=== PATIENT | female | born 1955 | race Caucasian/White ===

== ENCOUNTER 2019-11-06 12:17 | Outpatient (CLI) | payer OTHER, SELFPAY ==
[2019-11-06 12:28] LABS: Basophils Absolute Auto 0.05 K/mm3 (0.00-0.10); Basophils Percent Auto 0.5 % (0.0-1.0); Eosinophils Absolute Auto 0.21 K/mm3 (0.02-0.50); Eosinophils Percent Auto 2.3 % (1.0-6.0); Hemoglobin 13.4 g/dL (12.0-15.0); Immature Granulocyte Absolute 0.04 K/mm3 (0.00-0.00); Immature Granulocyte Percent A 0.4 % (0.0-0.0); Lymphocytes Absolute Auto 2.48 K/mm3 (1.10-4.50); Lymphocytes Percent Auto 27.2 % (18.0-42.0); Mean Corpuscular HGB Conc 33.5 g/dL (32.0-36.0); Mean Corpuscular Hemoglobin 27.7 pg (27.0-31.0); Mean Corpuscular Volume 82.8 fL (78.0-102.0); Mean Platelet Volume 10.4 fl (9.2-11.8); Monocytes Absolute Auto 0.77 K/mm3 (0.10-0.90); Monocytes Percent Auto 8.4 % (2.0-11.0); Neutrophils Absolute Auto 5.6 K/mm3 (1.7-7.2); Neutrophils Percent Auto 61.2 % (50.0-70.0); Platelet Count Result 302 K/mm3 (150-420); Red Blood Count 4.83 M/mm3 (4.20-5.40); Red Cell Distribution Width 13.7 % (11.6-14.4); White Blood Count 9.1 K/mm3 (4.8-10.8)
[2019-11-06 12:48] LABS: Hemoglobin A1C 6.3 % (<5.7)
[2019-11-06 12:49] LABS: Add Urine Microscopic? NO; Appearance Urine Clear (Clear); Bilirubin Urine Negative (Negative); Blood Urine Negative (Negative); Color Urine Yellow (Yellow); Glucose Urine UA Negative (Negative); Ketones Urine Negative (Negative); Leukocyte Esterase Ur Negative (Negative); Nitrate Urine Negative (Negative); Protein Urine Negative (Negative); Urobilinogen Urine 0.2 mg/dL (0.2-1.0); pH Urine 5.5 (5.0-8.0)
[2019-11-06 13:24] LABS: Alanine Aminotransferase 21 U/L (14-59); Albumin Level 3.8 g/dL (3.4-5.0); Alkaline Phosphatase 92 U/L (46-116); Anion Gap 14.5 mmol/L (7-16); Aspartate Amino Transferase 26 U/L (15-37); Bilirubin,Total 0.5 mg/dL (0.00-1.00); Blood Urea Nitrogen 16 mg/dL (7-18); Carbon Dioxide 24 mmol/L (21-32); Chloride 103 mmol/L (98-108); Cholesterol 209 mg/dL (0-200); Creatine Kinase 110 U/L (26-192); Estimated Glomerular Filt Rate 46; Glucose 93 mg/dL (70-99); HDL Direct 60 mg/dL (40-60); LDL Cholesterol Calculated 130 mg/dL (<130); Osmolality Calculated 285 mOsm/kg (285-295); Potassium 4.5 mmol/L (3.5-5.1); Sodium 137 mmol/L (136-145); Total Protein 6.9 g/dL (6.4-8.2); Triglycerides 97 mg/dL (0-150)
[2019-11-10 19:35] LABS: Vitamin D 25 Hydroxy 36 ng/mL (30-100)
== END 2019-11-06 12:18 | disposition home or self-care (01) ==
LOC: CHSLAB 12:18
PROVIDERS: PCP Internal Medicine; Visit Provider Internal Medicine
DX: E78.2 Mixed hyperlipidemia (principal); M81.0 Age-related osteoporosis without current pathological fracture; E55.9 Vitamin D deficiency, unspecified; R73.01 Impaired fasting glucose; I10 Essential (primary) hypertension
CPT/HCPCS: 36415; 80053; 80061; 81003; 82306; 82550; 83036; 85025

== ENCOUNTER 2019-12-02 13:23 | Outpatient (CLI) | payer OTHER, SELFPAY ==
--- NOTE | ~2019-12-02 | MM_ITS ---
EXAMINATION: MM screening [facility] BI w debby HISTORY: Screening mammogram TECHNIQUE: Craniocaudal and mediolateral oblique 3-D tomosynthesis images were obtained and synthetic 2-D images were generated. CAD analysis was submitted and interpreted. COMPARISON: 08/06/2018, 07/31/2017, 07/28/2016 BREAST PARENCHYMAL COMPOSITION: There are scattered areas of fibroglandular density. FINDINGS: There is no evidence of suspicious mass, calcification, or architectural distortion to sugg est malignancy in either breast. There has been no suspicious interval change. IMPRESSION: 1. No mammographic evidence of malignancy. 2. Recommend routine screening mammography in one year. BI-RADS Category 1: Negative Reviewed, dictated and finalized at location A.
== END 2019-12-02 13:24 | disposition home or self-care (01) ==
PROVIDERS: PCP Internal Medicine; Visit Provider Obstetrics & Gynecology
DX: Z12.31 Encounter for screening mammogram for malignant neoplasm of breast (principal)
CPT/HCPCS: 77063; 77067

== ENCOUNTER 2020-04-26 10:07 | Outpatient (CLI) | payer OTHER, SELFPAY ==
[2020-04-26 10:46] LABS: SARS-CoV-2 Ag Negative (Negative)
== END 2020-04-26 10:08 | disposition home or self-care (01) ==
LOC: CHSLAB 10:13
PROVIDERS: PCP Internal Medicine; Visit Provider Internal Medicine
DX: R05 Cough (principal); Z20.828 Contact with and (suspected) exposure to other viral communicable diseases
CPT/HCPCS: 87426

== ENCOUNTER 2020-06-10 12:47 | Outpatient (CLI) | payer OTHER, SELFPAY ==
[2020-06-10 13:03] LABS: Basophils Absolute Auto 0.05 K/mm3 (0.00-0.10); Basophils Percent Auto 0.5 % (0.0-1.0); Eosinophils Absolute Auto 0.25 K/mm3 (0.02-0.50); Eosinophils Percent Auto 2.7 % (1.0-6.0); Hematocrit 39.9 % (35.0-49.0); Hemoglobin 13.2 g/dL (12.0-15.0); Immature Granulocyte Absolute 0.03 K/mm3 (0.00-0.00); Immature Granulocyte Percent A 0.3 % (0.0-0.0); Lymphocytes Absolute Auto 2.68 K/mm3 (1.10-4.50); Mean Corpuscular HGB Conc 33.1 g/dL (32.0-36.0); Mean Corpuscular Hemoglobin 27.4 pg (27.0-31.0); Mean Corpuscular Volume 82.8 fL (78.0-102.0); Mean Platelet Volume 10.3 fl (9.2-11.8); Monocytes Absolute Auto 0.79 K/mm3 (0.10-0.90); Monocytes Percent Auto 8.5 % (2.0-11.0); Neutrophils Absolute Auto 5.4 K/mm3 (1.7-7.2); Platelet Count Result 325 K/mm3 (150-420); Red Blood Count 4.82 M/mm3 (4.20-5.40); Red Cell Distribution Width 13.8 % (11.6-14.4); White Blood Count 9.2 K/mm3 (4.8-10.8)
[2020-06-10 13:04] LABS: Add Urine Microscopic? NO; Appearance Urine Clear (Clear); Bilirubin Urine Negative (Negative); Blood Urine Negative (Negative); Color Urine Yellow (Yellow); Glucose Urine UA Negative (Negative); Ketones Urine Negative (Negative); Leukocyte Esterase Ur Negative (Negative); Nitrate Urine Negative (Negative); Protein Urine Negative (Negative); Urobilinogen Urine 0.2 mg/dL (0.2-1.0); pH Urine 5.5 (5.0-8.0)
[2020-06-10 13:23] LABS: Creatinine Urine 52.15 mg/dL (40-278)
[2020-06-10 13:25] LABS: Hemoglobin A1C 5.7 % (<5.7)
[2020-06-10 13:31] LABS: MALB Creatinine Ratio 24.9 mg/g (0-30); Microalbumin Urine Random < 13.0 mg/L
[2020-06-10 13:36] LABS: Alanine Aminotransferase 29 U/L (14-59); Albumin Level 3.9 g/dL (3.4-5.0); Alkaline Phosphatase 100 U/L (46-116); Anion Gap 10 mmol/L (8-16); Aspartate Amino Transferase 26 U/L (15-37); Bilirubin,Total 0.6 mg/dL (0.00-1.00); Blood Urea Nitrogen 17 mg/dL (7-18); Calcium 8.7 mg/dL (8.5-10.1); Carbon Dioxide 24 mmol/L (21-32); Chloride 100 mmol/L (98-108); Cholesterol 213 mg/dL (0-200); Creatine Kinase 151 U/L (26-192); Estimated Glomerular Filt Rate 45; Glucose 92 mg/dL (70-99); HDL Direct 64 mg/dL (40-60); LDL Cholesterol Calculated 128 mg/dL (<130); Osmolality Calculated 279 mOsm/kg (285-295); Potassium 4.2 mmol/L (3.5-5.1); Sodium 134 mmol/L (136-145); Total Protein 7.3 g/dL (6.4-8.2); Triglycerides 105 mg/dL (0-150)
== END 2020-06-10 12:48 | disposition home or self-care (01) ==
LOC: CHSLAB 12:50
PROVIDERS: PCP Internal Medicine; Visit Provider Internal Medicine
DX: R73.01 Impaired fasting glucose (principal); I12.9 Hypertensive chronic kidney disease with stage 1 through stage 4 chronic kidney disease, or unspecified chronic kidney disease; N18.2 Chronic kidney disease, stage 2 (mild); E78.2 Mixed hyperlipidemia
CPT/HCPCS: 36415; 80053; 80061; 81003; 82043; 82550; 83036; 85025

== ENCOUNTER 2020-07-06 09:37 | Outpatient (CLI) | payer OTHER, SELFPAY ==
[2020-07-06 10:29] LABS: Influenza Control Valid (Valid)
[2020-07-06 10:30] LABS: SARS-CoV-2 Ag Negative (Negative)
[2020-07-07 19:41] LABS: SARS-CoV-2 RNA PCR Negative
== END 2020-07-06 09:38 | disposition home or self-care (01) ==
LOC: CHSLAB 09:40
PROVIDERS: PCP Internal Medicine; Visit Provider Internal Medicine
DX: Z20.822 Contact with and (suspected) exposure to COVID-19 (principal)
CPT/HCPCS: 87426; 87804; C9803; U0003; U0005

== ENCOUNTER 2020-07-08 10:26 | Outpatient (CLI) | payer OTHER, SELFPAY ==
--- NOTE | ~2020-07-08 | CT_ITS ---
EXAMINATION: CT sinus wo con DATE: 07/08/2020 11:49 INDICATION: Chronic sinusitis. Sinus pressure, headache TECHNIQUE: Computed tomography (CT) of the paranasal sinuses was performed without contrast. Iterativ e reconstruction technique was employed. Exam dose: 272.65 mGy-cm total exam DLP. COMPARISON: None FINDINGS: There is rightward deviation of the nasal septum. Bilateral middle nasal turbinate judith bullosa and intralamellar cell. The nasal turbinate are moder ately prominent, relatively symmetric in size. There is soft tissue thickening at the left maxillary ostium and prominent soft tissue thickening of the left infundibulum. The right ostiomeatal unit is patent. Persistent metopic suture resulting in hypoplastic frontal sinuses. There is patchy soft tissue thickening of the ethmoid air cells. There is mild lower right maxillary sinus mucoperiosteal thickening and moderate mucoperiosteal thickening of the left maxillary sinus. T he sphenoid sinuses are unremarkable. The mastoid air cells are normally developed and aerated. Middle and inner ear apparatus appear lito l bilaterally. IMPRESSION: Rightward deviation of nasal septum Bilateral middle nasal turbinate judith bullosa and intralamellar cell Patchy soft tissue thickening of the ethmoid air cells bilaterally Moderate left and mild right maxillary sinus mucoperiosteal thickening Soft tissue opacification of the left maxillary ostium and left infundibulum Reviewed, dictated and finalized at Location A. Reviewed, dictated and finalized at location B. 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
== END 2020-07-08 10:27 | disposition home or self-care (01) ==
LOC: CHSIMG 10:28
PROVIDERS: PCP Internal Medicine; Visit Provider Internal Medicine
DX: J32.9 Chronic sinusitis, unspecified (principal)
CPT/HCPCS: 70486

== ENCOUNTER 2020-08-09 13:24 | Outpatient (CLI) | payer OTHER, SELFPAY ==
[2020-08-11 12:56] LABS: Immunoglobulin G, Serum 1019 mg/dL (600-1540); Immunoglobulin G1 450 mg/dL (382-929); Immunoglobulin G2 399 mg/dL (241-700); Immunoglobulin G3 38 mg/dL (22-178); Immunoglobulin G4 83.6 mg/dL (4.0-86.0)
== END 2020-08-09 13:25 | disposition home or self-care (01) ==
PROVIDERS: PCP Internal Medicine; Visit Provider Otolaryngology
DX: J32.4 Chronic pansinusitis (principal)
CPT/HCPCS: 36415; 82784; 82787

== ENCOUNTER 2020-08-18 11:10 | Outpatient (CLI) | payer OTHER, SELFPAY ==
[2020-08-18 13:02] LABS: Anion Gap 11 mmol/L (8-16); Blood Urea Nitrogen 20 mg/dL (7-18); Calcium 8.6 mg/dL (8.5-10.1); Carbon Dioxide 25 mmol/L (21-32); Chloride 102 mmol/L (98-108); Estimated Glomerular Filt Rate 44; Glucose 88 mg/dL (70-99); Osmolality Calculated 287 mOsm/kg (285-295); Potassium 4.5 mmol/L (3.5-5.1); Sodium 138 mmol/L (136-145)
== END 2020-08-18 11:11 | disposition home or self-care (01) ==
LOC: CHSLAB 11:12
PROVIDERS: PCP Internal Medicine; Visit Provider Internal Medicine
DX: I10 Essential (primary) hypertension (principal)
CPT/HCPCS: 36415; 80048

== ENCOUNTER 2020-12-06 13:17 | Outpatient (CLI) | payer OTHER, SELFPAY ==
--- NOTE | ~2020-12-06 | MM_ITS ---
EXAMINATION: MM screening [facility] BI w debby HISTORY: Screening TECHNIQUE: Craniocaudal and mediolateral oblique 3-D tomosynthesis images were obtained and synthetic 2-D images were generated. CAD analysis was submitted and interpreted. COMPARISON: Comparison to multiple prior studies sequentially, with oldest reviewed study dated 07/13. BREAST PARENCHYMAL COMPOSITION: There are scattered areas of fibroglandular density. FINDINGS: There is no evidence of suspicious mass, calcification, or architectural distortion to sugg est malignancy in either breast. There has been no suspicious interval change. IMPRESSION: 1. No mammographic evidence of malignancy. 2. Recommend routine screening mammography in one year. BI-RADS Category 1: Negative Reviewed, dictated and finalized at location A.
== END 2020-12-06 13:18 | disposition home or self-care (01) ==
LOC: CHSIMG 13:19
PROVIDERS: PCP Internal Medicine; Visit Provider Obstetrics & Gynecology
DX: Z12.31 Encounter for screening mammogram for malignant neoplasm of breast (principal)
CPT/HCPCS: 77063; 77067

== ENCOUNTER 2020-12-20 12:21 | Outpatient (CLI) | payer OTHER, SELFPAY ==
[2020-12-20 12:37] LABS: Add Urine Microscopic? NO; Appearance Urine Clear (Clear); Bilirubin Urine Negative (Negative); Blood Urine Negative (Negative); Color Urine Light Yellow (Yellow); Glucose Urine UA Negative (Negative); Ketones Urine Negative (Negative); Leukocyte Esterase Ur Negative LEU/UL (Negative); Nitrate Urine Negative (Negative); Protein Urine Negative (Negative); Urobilinogen Urine 0.2 mg/dL (0.2-1.0)
[2020-12-20 12:42] LABS: Basophils Absolute Auto 0.06 K/mm3 (0.00-0.10); Basophils Percent Auto 0.7 % (0.0-1.0); Eosinophils Absolute Auto 0.16 K/mm3 (0.02-0.50); Eosinophils Percent Auto 1.7 % (1.0-6.0); Hemoglobin 13.5 g/dL (12.0-15.0); Immature Granulocyte Absolute 0.03 K/mm3 (0.00-0.00); Immature Granulocyte Percent A 0.3 % (0.0-0.0); Lymphocytes Absolute Auto 2.54 K/mm3 (1.10-4.50); Lymphocytes Percent Auto 27.8 % (18.0-42.0); Mean Corpuscular HGB Conc 32.1 g/dL (32.0-36.0); Mean Corpuscular Hemoglobin 27.1 pg (27.0-31.0); Mean Corpuscular Volume 84.3 fL (78.0-102.0); Mean Platelet Volume 10.7 fl (9.2-11.8); Monocytes Absolute Auto 0.81 K/mm3 (0.10-0.90); Monocytes Percent Auto 8.9 % (2.0-11.0); Neutrophils Absolute Auto 5.6 K/mm3 (1.7-7.2); Neutrophils Percent Auto 60.6 % (50.0-70.0); Platelet Count Result 318 K/mm3 (150-420); Red Blood Count 4.98 M/mm3 (4.20-5.40); Red Cell Distribution Width 14.2 % (11.6-14.4); White Blood Count 9.2 K/mm3 (4.8-10.8)
[2020-12-20 12:46] LABS: Creatinine Urine 141.21 mg/dL (40-278); MALB Creatinine Ratio 9.2 mg/g (0-30); Microalbumin Urine Random < 13.0 mg/L
[2020-12-20 12:49] LABS: Hemoglobin A1C 6.2 % (<5.7)
[2020-12-20 14:02] LABS: Alanine Aminotransferase 32 U/L (14-59); Albumin Level 3.9 g/dL (3.4-5.0); Alkaline Phosphatase 90 U/L (46-116); Anion Gap 13 mmol/L (8-16); Aspartate Amino Transferase 26 U/L (15-37); Bilirubin,Total 0.6 mg/dL (0.00-1.00); Blood Urea Nitrogen 17 mg/dL (7-18); Calcium 9.1 mg/dL (8.5-10.1); Carbon Dioxide 24 mmol/L (21-32); Chloride 104 mmol/L (98-108); Cholesterol 221 mg/dL (0-200); Creatine Kinase 134 U/L (26-192); Estimated Glomerular Filt Rate 47; Glucose 93 mg/dL (70-99); HDL Direct 60 mg/dL (40-60); LDL Cholesterol Calculated 138 mg/dL (<130); Osmolality Calculated 293 mOsm/kg (285-295); Potassium 4.5 mmol/L (3.5-5.1); Sodium 141 mmol/L (136-145); Total Protein 7.1 g/dL (6.4-8.2); Triglycerides 114 mg/dL (0-150)
[2020-12-22 18:20] LABS: Vitamin D 25 Hydroxy 35 ng/mL (30-100)
== END 2020-12-20 12:22 | disposition home or self-care (01) ==
PROVIDERS: PCP Internal Medicine; Visit Provider Internal Medicine
DX: R73.01 Impaired fasting glucose (principal); I10 Essential (primary) hypertension; N39.0 Urinary tract infection, site not specified; E78.5 Hyperlipidemia, unspecified; E55.9 Vitamin D deficiency, unspecified
CPT/HCPCS: 36415; 80053; 80061; 81003; 82043; 82306; 82550; 83036; 85025

== ENCOUNTER 2021-03-21 09:51 | Outpatient (CLI) | payer OTHER, SELFPAY ==
[2021-03-21 11:58] LABS: Influenza A QL RT-PCR Negative (Negative); Influenza B QL RT-PCR Negative (Negative); SARS-CoV-2 RNA PCR Negative (Negative)
== END 2021-03-21 09:52 | disposition home or self-care (01) ==
LOC: CHSLAB 09:52
PROVIDERS: PCP Internal Medicine; Visit Provider Internal Medicine
DX: J06.9 Acute upper respiratory infection, unspecified (principal); Z20.822 Contact with and (suspected) exposure to COVID-19
CPT/HCPCS: 87502; C9803; U0003; U0005

== ENCOUNTER 2021-07-18 12:24 | Outpatient (CLI) | payer OTHER, SELFPAY ==
[2021-07-18 12:49] LABS: Add Urine Microscopic? NO; Appearance Urine Clear (Clear); Basophils Absolute Auto 0.05 K/mm3 (0.00-0.10); Basophils Percent Auto 0.5 % (0.0-1.0); Bilirubin Urine Negative (Negative); Blood Urine Negative (Negative); Color Urine Light Yellow (Yellow); Eosinophils Absolute Auto 0.15 K/mm3 (0.02-0.50); Eosinophils Percent Auto 1.5 % (1.0-6.0); Glucose Urine UA Negative (Negative); Hematocrit 41.5 % (35.0-49.0); Hemoglobin 13.6 g/dL (12.0-15.0); Immature Granulocyte Absolute 0.03 K/mm3 (0.00-0.00); Immature Granulocyte Percent A 0.3 % (0.0-0.0); Ketones Urine Negative (Negative); Leukocyte Esterase Ur Negative (Negative); Lymphocytes Absolute Auto 2.68 K/mm3 (1.10-4.50); Lymphocytes Percent Auto 26.6 % (18.0-42.0); Mean Corpuscular HGB Conc 32.8 g/dL (32.0-36.0); Mean Corpuscular Hemoglobin 26.8 pg (27.0-31.0); Mean Corpuscular Volume 81.9 fL (78.0-102.0); Mean Platelet Volume 10.8 fl (9.2-11.8); Monocytes Absolute Auto 0.75 K/mm3 (0.10-0.90); Monocytes Percent Auto 7.4 % (2.0-11.0); Neutrophils Absolute Auto 6.4 K/mm3 (1.7-7.2); Neutrophils Percent Auto 63.7 % (50.0-70.0); Nitrate Urine Negative (Negative); Platelet Count Result 326 K/mm3 (150-420); Protein Urine Negative (Negative); Red Blood Count 5.07 M/mm3 (4.20-5.40); Red Cell Distribution Width 14.3 % (11.6-14.4); Urobilinogen Urine 0.2 mg/dL (0.2-1.0); White Blood Count 10.1 K/mm3 (4.8-10.8)
[2021-07-18 12:56] LABS: Hemoglobin A1C 6.1 % (<5.7)
[2021-07-18 13:15] LABS: Alanine Aminotransferase 34 U/L (14-59); Albumin Level 3.8 g/dL (3.4-5.0); Alkaline Phosphatase 95 U/L (46-116); Anion Gap 13 mmol/L (8-16); Aspartate Amino Transferase 26 U/L (15-37); Bilirubin,Total 0.7 mg/dL (0.00-1.00); Blood Urea Nitrogen 17 mg/dL (7-18); Carbon Dioxide 22 mmol/L (21-32); Chloride 102 mmol/L (98-108); Cholesterol 215 mg/dL (0-200); Estimated Glomerular Filt Rate 46; Glucose 95 mg/dL (70-99); HDL Direct 56 mg/dL (40-60); LDL Cholesterol Calculated 133 mg/dL (<130); Osmolality Calculated 285 mOsm/kg (285-295); Potassium 4.5 mmol/L (3.5-5.1); Sodium 137 mmol/L (136-145); Total Protein 7.2 g/dL (6.4-8.2); Triglycerides 129 mg/dL (0-150)
[2021-07-20 10:29] LABS: Vitamin D 25 Hydroxy 41 ng/mL (30-100)
== END 2021-07-18 12:25 | disposition home or self-care (01) ==
LOC: CHSLAB 12:26
PROVIDERS: PCP Internal Medicine; Visit Provider Internal Medicine
DX: R73.01 Impaired fasting glucose (principal); I12.9 Hypertensive chronic kidney disease with stage 1 through stage 4 chronic kidney disease, or unspecified chronic kidney disease; E78.2 Mixed hyperlipidemia; E55.9 Vitamin D deficiency, unspecified; N18.2 Chronic kidney disease, stage 2 (mild)
CPT/HCPCS: 36415; 80053; 80061; 81003; 82306; 83036; 85025

== ENCOUNTER 2021-07-26 14:49 | Outpatient (CLI) | payer OTHER, SELFPAY ==
--- NOTE | ~2021-07-26 | US_ITS ---
EXAMINATION: US soft tissue head and neck EXAM DATE: 07/26/2021 15:09 INDICATION: Lymph Nodes Mass. TECHNIQUE: Multiple grayscale and Doppler images of the left parotid area of concern were obtained (ashly elkins a technologist who performed the scan) and subsequently reviewed. There is no prior study for brando holcomb. FINDINGS: Scanning in in area of pain/swelling, region of the left parotid gland demonstrated unremarkable left parotid superficial lobe parenchyma, no focal mass lymph node or subcutaneous abnormality identified . Contralateral parotid was also scanned for comparison, unremarkable. IMPRESSION: Unremarkable ultrasound exam. If symptoms persist, CT neck with contrast would be more co mprehensive. Reviewed, dictated and finalized at location A. 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 If symptoms persist, CT neck with con trast would be more comprehensive.
== END 2021-07-26 14:50 | disposition home or self-care (01) ==
LOC: CHSIMG 14:51
PROVIDERS: PCP Internal Medicine; Visit Provider Internal Medicine
DX: R22.1 Localized swelling, mass and lump, neck (principal)
CPT/HCPCS: 76536

== ENCOUNTER 2021-08-02 12:46 | Outpatient (CLI) | payer OTHER, SELFPAY ==
--- NOTE | ~2021-08-02 | CT_ITS ---
EXAMINATION: CT soft tissue neck wo con DATE: 08/02/2021 13:24 INDICATION: Lymphadenitis. Dysphagia. TECHNIQUE: Computed tomography (CT) of the neck was performed without intravenous contrast. Automated exposure control and iterative reconstruction technique were employed. The dose-length product was 4 77.58 mGy-cm. COMPARISON: Ultrasound 07/26/2021 FINDINGS: There are no pathologically enlarged lymph nodes. There is no abnormal mass. There is mucos al thickening in left maxillary sinus. There is moderate cervical spondylosis. IMPRESSION: 1. No abnormal mass or lymphadenopathy. Reviewed, dictated and finalized at location A.
== END 2021-08-02 12:47 | disposition home or self-care (01) ==
LOC: CHSIMG 12:47
PROVIDERS: PCP Internal Medicine; Visit Provider Internal Medicine
DX: I88.9 Nonspecific lymphadenitis, unspecified (principal)
CPT/HCPCS: 70490

== ENCOUNTER 2021-12-13 12:21 | Outpatient (CLI) | payer OTHER, SELFPAY ==
--- NOTE | ~2021-12-13 | MM_ITS ---
EXAMINATION: MM screening [facility] BI w debby HISTORY: Screening mammogram TECHNIQUE: Craniocaudal and mediolateral oblique 3-D tomosynthesis images were obtained and synthetic 2-D images were generated. CAD analysis was submitted and interpreted. COMPARISON: , 12/02/2019, 08/06/2018 bilateral screening mammogram examinations BREAST PARENCHYMAL COMPOSITION: There are scattered areas of fibroglandular density. FINDINGS: There is no evidence of suspicious mass, calcification, or architectural distortion to sugg est malignancy in either breast. There has been no suspicious interval change. IMPRESSION: 1. No mammographic evidence of malignancy. 2. Recommend routine screening mammography in one year. BI-RADS Category 1: Negative Reviewed, dictated and finalized at location A.
== END 2021-12-13 12:22 | disposition home or self-care (01) ==
LOC: CHSIMG 12:22
PROVIDERS: PCP Internal Medicine; Visit Provider Obstetrics & Gynecology
DX: Z12.31 Encounter for screening mammogram for malignant neoplasm of breast (principal)
CPT/HCPCS: 77063; 77067

== ENCOUNTER 2022-02-10 12:04 | Outpatient (CLI) | payer OTHER, SELFPAY ==
[2022-02-10 12:36] LABS: Basophils Absolute Auto 0.03 K/mm3 (0.00-0.10); Basophils Percent Auto 0.4 % (0.0-1.0); Eosinophils Absolute Auto 0.12 K/mm3 (0.02-0.50); Eosinophils Percent Auto 1.5 % (1.0-6.0); Hemoglobin 12.2 g/dL (12.0-15.0); Immature Granulocyte Absolute 0.02 K/mm3 (0.00-0.00); Immature Granulocyte Percent A 0.2 % (0.0-0.0); Lymphocytes Absolute Auto 2.38 K/mm3 (1.10-4.50); Lymphocytes Percent Auto 29.3 % (18.0-42.0); Mean Corpuscular Hemoglobin 27.5 pg (27.0-31.0); Mean Corpuscular Volume 83.5 fL (78.0-102.0); Mean Platelet Volume 10.6 fl (9.2-11.8); Monocytes Absolute Auto 0.66 K/mm3 (0.10-0.90); Monocytes Percent Auto 8.1 % (2.0-11.0); Neutrophils Absolute Auto 4.9 K/mm3 (1.7-7.2); Neutrophils Percent Auto 60.5 % (50.0-70.0); Platelet Count Result 277 K/mm3 (150-420); Red Blood Count 4.43 M/mm3 (4.20-5.40); Red Cell Distribution Width 14.8 % (11.6-14.4); White Blood Count 8.1 K/mm3 (4.8-10.8)
[2022-02-10 12:38] LABS: Add Urine Microscopic? NO; Appearance Urine Clear (Clear); Bilirubin Urine Negative (Negative); Blood Urine Negative (Negative); Color Urine Light Yellow (Yellow); Glucose Urine UA Negative (Negative); Ketones Urine Negative (Negative); Leukocyte Esterase Ur Negative (Negative); Nitrate Urine Negative (Negative); Protein Urine Negative (Negative); Specific Grav Ur <= 1.005 (1.010-1.020); Urobilinogen Urine 0.2 mg/dL (0.2-1.0); pH Urine 5.5 (5.0-8.0)
[2022-02-10 12:46] LABS: Hemoglobin A1C 6.3 % (<5.7)
[2022-02-10 12:47] LABS: Creatinine Urine 27.29 mg/dL (40-278)
[2022-02-10 13:00] LABS: MALB Creatinine Ratio 47.6 mg/g (0-30); Microalbumin Urine Random < 13.0 mg/L
[2022-02-10 13:08] LABS: Alanine Aminotransferase 28 U/L (14-59); Albumin Level 3.5 g/dL (3.4-5.0); Alkaline Phosphatase 83 U/L (46-116); Anion Gap 10 mmol/L (8-16); Aspartate Amino Transferase 29 U/L (15-37); Bilirubin,Total 0.6 mg/dL (0.00-1.00); Blood Urea Nitrogen 20 mg/dL (7-18); Calcium 8.6 mg/dL (8.5-10.1); Carbon Dioxide 24 mmol/L (21-32); Chloride 101 mmol/L (98-108); Cholesterol 194 mg/dL (0-200); Estimated Glomerular Filt Rate 45; Glucose 96 mg/dL (70-99); HDL Direct 53 mg/dL (40-60); LDL Cholesterol Calculated 116 mg/dL (<130); Osmolality Calculated 282 mOsm/kg (285-295); Potassium 3.7 mmol/L (3.5-5.1); Sodium 135 mmol/L (136-145); Total Protein 6.9 g/dL (6.4-8.2); Triglycerides 123 mg/dL (0-150)
[2022-02-15 05:28] LABS: Vitamin D 25 Hydroxy 49 ng/mL (30-100)
== END 2022-02-10 12:05 | disposition home or self-care (01) ==
PROVIDERS: PCP Internal Medicine; Visit Provider Internal Medicine
DX: E78.2 Mixed hyperlipidemia (principal); E11.9 Type 2 diabetes mellitus without complications; I12.9 Hypertensive chronic kidney disease with stage 1 through stage 4 chronic kidney disease, or unspecified chronic kidney disease; E55.9 Vitamin D deficiency, unspecified; N18.2 Chronic kidney disease, stage 2 (mild)
CPT/HCPCS: 36415; 80053; 80061; 81003; 82043; 82306; 83036; 85025

== ENCOUNTER 2022-07-11 16:49 | Outpatient (CLI) | payer OTHER, SELFPAY ==
[2022-07-11 17:34] LABS: Strep Group A RT-PCR DETECTED (Negative)
[2022-07-11 17:48] LABS: Influenza A QL RT-PCR Negative (Negative); Influenza B QL RT-PCR Negative (Negative); SARS-CoV-2 RNA PCR Negative (Negative)
== END 2022-07-11 16:50 | disposition home or self-care (01) ==
LOC: CHSLAB 16:53
PROVIDERS: PCP Internal Medicine; Visit Provider Internal Medicine
DX: J06.9 Acute upper respiratory infection, unspecified (principal); Z20.822 Contact with and (suspected) exposure to COVID-19
CPT/HCPCS: 87636; 87651

== ENCOUNTER 2022-08-10 15:15 | Outpatient (CLI) | payer OTHER, SELFPAY ==
--- NOTE | ~2022-08-10 | XR_ITS ---
EXAMINATION: XR chest 2V DATE: 08/10/2022 15:40 INDICATION: Acute asthma, COVID 19 TECHNIQUE: PA and lateral views of the chest are obtained. COMPARISON: 05/15/2019 FINDINGS: The lungs are free of acute opacities. No pleural effusion or pneumothorax. The cardiomedia stinal silhouette is normal. There are bridging osteophytes at multiple levels in the spine, consiste nt with diffuse idiopathic skeletal hyperostosis (DISH). IMPRESSION: 1. No acute cardiopulmonary abnormality. Reviewed, dictated and finalized at location L.
== END 2022-08-10 15:16 | disposition home or self-care (01) ==
LOC: CHSIMG 15:17
PROVIDERS: PCP Internal Medicine; Visit Provider Internal Medicine
DX: U07.1 COVID-19 (principal); J45.998 Other asthma; R05.9 Cough, unspecified; R06.02 Shortness of breath
CPT/HCPCS: 71046

== ENCOUNTER 2022-08-16 11:55 | Outpatient (CLI) | payer OTHER, SELFPAY ==
--- NOTE | ~2022-08-16 | XR_ITS ---
Clinical Indication: Cough PA and lateral views of the chest: Comparison: 08/10/2022 Findings: The lungs are clear, without evidence of focal consolidation or pleural effusion. Cardiome diastinal silhouette is within normal limits. Bones and soft tissues are unremarkable. Impression: Normal chest. Reviewed, dictated and finalized at location . Impression: Normal chest.
[2022-08-16 12:16] LABS: Basophils Absolute Auto 0.03 K/mm3 (0.00-0.10); Basophils Percent Auto 0.2 % (0.0-1.0); Eosinophils Absolute Auto 0.01 K/mm3 (0.02-0.50); Eosinophils Percent Auto 0.1 % (1.0-6.0); Hematocrit 39.4 % (35.0-49.0); Hemoglobin 13.3 g/dL (12.0-15.0); Immature Granulocyte Absolute 0.19 K/mm3 (0.00-0.00); Immature Granulocyte Percent A 1.3 % (0.0-0.0); Lymphocytes Absolute Auto 1.53 K/mm3 (1.10-4.50); Lymphocytes Percent Auto 10.6 % (18.0-42.0); Mean Corpuscular HGB Conc 33.8 g/dL (32.0-36.0); Mean Corpuscular Hemoglobin 27.4 pg (27.0-31.0); Mean Corpuscular Volume 81.2 fL (78.0-102.0); Mean Platelet Volume 10.5 fl (9.2-11.8); Monocytes Absolute Auto 0.63 K/mm3 (0.10-0.90); Monocytes Percent Auto 4.4 % (2.0-11.0); Neutrophils Percent Auto 83.4 % (50.0-70.0); Platelet Count Result 355 K/mm3 (150-420); Red Blood Count 4.85 M/mm3 (4.20-5.40); Red Cell Distribution Width 14.9 % (11.6-14.4); White Blood Count 14.4 K/mm3 (4.8-10.8)
[2022-08-16 12:56] LABS: Influenza A QL RT-PCR Negative (Negative); Influenza B QL RT-PCR Negative (Negative); SARS-CoV-2 RNA PCR Negative (Negative)
[2022-08-16 13:23] LABS: Alanine Aminotransferase 37 U/L (14-59); Albumin Level 3.5 g/dL (3.4-5.0); Alkaline Phosphatase 72 U/L (46-116); Anion Gap 14 mmol/L (8-16); Aspartate Amino Transferase 23 U/L (15-37); Bilirubin,Total 0.4 mg/dL (0.00-1.00); Blood Urea Nitrogen 28 mg/dL (7-18); Calcium 9.1 mg/dL (8.5-10.1); Carbon Dioxide 22 mmol/L (21-32); Chloride 103 mmol/L (98-108); Estimated Glomerular Filt Rate 40; Glucose 119 mg/dL (70-99); Osmolality Calculated 294 mOsm/kg (285-295); Potassium 4.8 mmol/L (3.5-5.1); Sodium 139 mmol/L (136-145); Total Protein 7.1 g/dL (6.4-8.2)
[2022-08-16 13:32] LABS: Strep Group A RT-PCR NOT DETECTED (Negative)
== END 2022-08-16 11:56 | disposition home or self-care (01) ==
LOC: CHSLAB 11:58
PROVIDERS: PCP Internal Medicine; Visit Provider Internal Medicine
DX: J06.9 Acute upper respiratory infection, unspecified (principal); R05.9 Cough, unspecified; J02.9 Acute pharyngitis, unspecified; Z20.822 Contact with and (suspected) exposure to COVID-19
CPT/HCPCS: 36415; 71046; 80053; 85025; 87636; 87651

== ENCOUNTER 2022-09-14 11:59 | Outpatient (CLI) | payer MEDICARE, SELFPAY ==
[2022-09-14 12:17] LABS: Appearance Urine Clear (Clear); Basophils Absolute Auto 0.04 K/mm3 (0.00-0.10); Basophils Percent Auto 0.5 % (0.0-1.0); Bilirubin Urine Negative (Negative); Blood Urine Negative (Negative); Color Urine Yellow (Yellow); Eosinophils Absolute Auto 0.11 K/mm3 (0.02-0.50); Eosinophils Percent Auto 1.5 % (1.0-6.0); Glucose Urine UA Negative (Negative); Hematocrit 37.8 % (35.0-42.0); Hemoglobin 12.4 g/dL (11.7-13.8); Immature Granulocyte Absolute 0.03 K/mm3 (0.00-0.00); Immature Granulocyte Percent A 0.4 % (0.0-0.0); Ketones Urine Negative (Negative); Leukocyte Esterase Ur Negative (Negative); Lymphocytes Absolute Auto 2.03 K/mm3 (1.10-4.50); Lymphocytes Percent Auto 27.6 % (18.0-42.0); Mean Corpuscular HGB Conc 32.8 g/dL (32.0-36.0); Mean Corpuscular Hemoglobin 27.3 pg (27.0-31.0); Mean Corpuscular Volume 83.1 fL (78.0-102.0); Mean Platelet Volume 10.3 fl (9.2-11.8); Monocytes Absolute Auto 0.63 K/mm3 (0.10-0.90); Monocytes Percent Auto 8.6 % (2.0-11.0); Neutrophils Absolute Auto 4.5 K/mm3 (1.7-7.2); Neutrophils Percent Auto 61.4 % (50.0-70.0); Nitrate Urine Negative (Negative); Platelet Count Result 353 K/mm3 (150-420); Protein Urine Negative (Negative); Red Blood Count 4.55 M/mm3 (4.20-5.40); Specific Grav Ur 1.015 (1.010-1.020); Urobilinogen Urine 0.2 mg/dL (0.2-1.0); White Blood Count 7.4 K/mm3 (4.8-10.8)
[2022-09-14 12:18] LABS: Add Urine Microscopic? NO
[2022-09-14 12:29] LABS: Hemoglobin A1C 6.1 % (<5.7)
[2022-09-14 12:54] LABS: Alanine Aminotransferase 29 U/L (14-59); Albumin Level 3.5 g/dL (3.4-5.0); Alkaline Phosphatase 73 U/L (46-116); Anion Gap 9 mmol/L (8-16); Aspartate Amino Transferase 26 U/L (15-37); Bilirubin,Total 0.6 mg/dL (0.00-1.00); Blood Urea Nitrogen 18 mg/dL (7-18); Calcium 9.4 mg/dL (8.5-10.1); Carbon Dioxide 26 mmol/L (21-32); Chloride 103 mmol/L (98-108); Cholesterol 201 mg/dL (0-200); Creatine Kinase 102 U/L (26-192); Estimated Glomerular Filt Rate 42; Glucose 101 mg/dL (70-99); HDL Direct 55 mg/dL (40-60); LDL Cholesterol Calculated 122 mg/dL (<130); Osmolality Calculated 287 mOsm/kg (285-295); Potassium 4.1 mmol/L (3.5-5.1); Sodium 138 mmol/L (136-145); Total Protein 6.7 g/dL (6.4-8.2); Triglycerides 120 mg/dL (0-150)
[2022-09-17 19:45] LABS: Vitamin D 25 Hydroxy 42 ng/mL (30-100)
== END 2022-09-14 12:00 | disposition home or self-care (01) ==
LOC: CHSLAB 12:03
PROVIDERS: PCP Internal Medicine; Visit Provider Internal Medicine
DX: I10 Essential (primary) hypertension (principal); R73.01 Impaired fasting glucose; E55.9 Vitamin D deficiency, unspecified; E78.2 Mixed hyperlipidemia; N18.2 Chronic kidney disease, stage 2 (mild)
CPT/HCPCS: 36415; 80053; 80061; 81003; 82306; 82550; 83036; 85025

== ENCOUNTER 2022-10-31 19:45 | Emergency (ER) | payer MEDICARE, SELFPAY ==
[2022-10-31 19:47] VITALS: BP 163/101; PULSE 77; RESP 18; TEMP 36.9; O2SAT 99
--- NOTE | 2022-10-31 20:04 | ED.FALL ---
HPI - Fall General Chief Complaint: Extremity Injury, Lower Stated Complaint: Bruising Time Seen by Provider: 10/31/22 20:04 Source: patient and RN notes reviewed Mode of arrival: ambulatory Limitations: no limitations History of Present Illness HPI Narrative: patient states that she fell 6 days ago while she was on vacation. She did not seek medical treatment there. She then flew home and in the last 48 hours has had increased bruising and swelling in her left lower leg. Says it is warm to the touch this tender when she walks on it but she is able to ambulate. She denies any fever chills. She denies any chest pain shortness of breath. MD complaint: fall Onset (ago): day(s) (6) Fall from: standing Fall witnessed: yes, by family Place fall occurred: street Loss of consciousness: none Context: tripped/slipped Location of injury - extremities: Left: lower leg Severity: moderate Quality: dull and aching Associated symptoms (after fall): denies Related Data Home Medications Medication Instructions Recorded Confirmed Vitamin D3 50,000 units BYMOUTH [id number] 10/31/22 10/31/22 albuterol sulfate 90 mcg/actuation 2 puff inhalation QID PRN Wheezing 10/31/22 10/31/22 aerosol inhaler (Ventolin HFA) azelastine 137 mcg (0.1 %) nasal 2 spray intranasal Q12H 10/31/22 10/31/22 spray aerosol budesonide-formoterol HFA 160 2 puff inhalation Q12H 10/31/22 10/31/22 mcg-4.5 mcg/actuation aerosol inhaler estradiol 0.01% (0.1 mg/gram) 0.5 g vaginal 3XW 10/31/22 10/31/22 vaginal cream (Estrace) ipratropium 0.5 mg-albuterol 3 mg 3 ml inhalation PRN 10/31/22 10/31/22 (2.5 mg base)/3 mL nebulization soln losartan 100 mg tablet 100 mg PO DAILY 10/31/22 10/31/22 mecobalamin (vitamin B12) 1,000 1,000 mcg PO DAILY 10/31/22 10/31/22 mcg chewable tablet (B12 Active) mometasone 50 mcg/actuation nasal 2 spray intranasal BID 10/31/22 10/31/22 spray nebivolol 10 mg tablet (Bystolic) 10 mg PO DAILY 10/31/22 10/31/22 Allergies Allergy/AdvReac Type Severity Reaction Status Date / Time celecoxib [From Celebrex] Allergy Hives Verified 10/31/22 20:06 Penicillins Allergy Anaphylaxis Verified 10/31/22 20:06 Sulfa (Sulfonamide Allergy Hives Verified 10/31/22 20:06 Antibiotics) Review of Systems Review of Systems: All systems reviewed & are unremarkable except as noted in HPI and below Constitutional: Constitutional: Denies chills and Denies fever(s) PMFSH Past Medical History Medical History (Updated 10/31/22 @ 21:04 by Christiano Hawkins MD) Allergic rhinitis Asthma GERD (gastroesophageal reflux disease) Hypertension Surgical History Surgical History (Updated 10/31/22 @ 20:14 by Christiano Hawkins MD) H/O dilation and curettage History of section History of knee replacement History of total abdominal hysterectomy Hx of cholecystectomy Exam Const: General: healthy appearing, no acute distress and alert Nutritional Appearance: well nourished and obese Orientation/consciousness: patient oriented x3 Limitations: no limitations HENMT: Head: normal to inspection Ears: external ears normal Face/Nose/Sinus: Normal external nose present Face and sinus: normal facial exam Mouth: Yes moist mucous membranes Eyes: Conjunctivae: conjunctivae normal Pupils: Equal, round and reactive pupils present EOM: EOMs intact bilaterally Neck: Neck: normal visual inspection Resp: Effort & Inspection: normal respiratory effort Auscultation: clear to auscultation bilaterally Cardio: Rate: regular rate Rhythm: regular rhythm GI: GI Palp: Yes Soft to palpation and No Tenderness to palpation present (GI) Auscultation: normal bowel sounds Back/Spine/Pelvis: Cervical Spine: cervical ROM normal Thoracic/Lumbar Spine: thoraco-lumbar ROM normal Skin: General skin exam: normal color Neuro: General: patient oriented x3, moves all extremities, no focal motor deficits and CN's II-XI intact bilaterally Speech: normal speec
[2022-10-31 20:35] LABS: Basophils Absolute Auto 0.03 K/mm3 (0.00-0.10); Basophils Percent Auto 0.4 % (0.0-1.0); Eosinophils Absolute Auto 0.14 K/mm3 (0.02-0.50); Eosinophils Percent Auto 1.6 % (1.0-6.0); Hematocrit 38.6 % (35.0-42.0); Hemoglobin 12.3 g/dL (11.7-13.8); Immature Granulocyte Absolute 0.02 K/mm3 (0.00-0.00); Immature Granulocyte Percent A 0.2 % (0.0-0.0); Lymphocytes Absolute Auto 2.14 K/mm3 (1.10-4.50); Lymphocytes Percent Auto 25.1 % (18.0-42.0); Mean Corpuscular HGB Conc 31.9 g/dL (32.0-36.0); Mean Corpuscular Hemoglobin 27.3 pg (27.0-31.0); Mean Corpuscular Volume 85.6 fL (78.0-102.0); Mean Platelet Volume 10.3 fl (9.2-11.8); Monocytes Absolute Auto 0.87 K/mm3 (0.10-0.90); Monocytes Percent Auto 10.2 % (2.0-11.0); Neutrophils Absolute Auto 5.3 K/mm3 (1.7-7.2); Neutrophils Percent Auto 62.5 % (50.0-70.0); Platelet Count Result 270 K/mm3 (150-420); Red Blood Count 4.51 M/mm3 (4.20-5.40); Red Cell Distribution Width 14.9 % (11.6-14.4); White Blood Count 8.5 K/mm3 (4.8-10.8)
[2022-10-31 20:55] LABS: Lactic Acid Reflex 0.9 mmol/L (0.4-2.0)
[2022-10-31 20:56] LABS: D Dimer 0.51 mg/L (0.19-0.50)
[2022-10-31 21:01] LABS: Alanine Aminotransferase 23 U/L (14-59); Albumin Level 3.4 g/dL (3.4-5.0); Alkaline Phosphatase 82 U/L (46-116); Anion Gap 11 mmol/L (8-16); Aspartate Amino Transferase 30 U/L (15-37); Bilirubin,Total 0.5 mg/dL (0.00-1.00); Blood Urea Nitrogen 15 mg/dL (7-18); Carbon Dioxide 25 mmol/L (21-32); Chloride 103 mmol/L (98-108); Estimated CRCL calculation 53 ml/min; Estimated Glomerular Filt Rate 45; Glucose 103 mg/dL (70-99); Osmolality Calculated 288 mOsm/kg (285-295); Potassium 3.7 mmol/L (3.5-5.1); Sodium 139 mmol/L (136-145); Total Protein 6.9 g/dL (6.4-8.2)
[2022-10-31] MEDS: ENOXAPARIN 100 MG/ML SYRINGE SUB-Q (21:37)
[2022-10-31 21:40] VITALS: BP 160/84; PULSE 60; RESP 18; O2SAT 97
== END 2022-10-31 21:41 | disposition home or self-care (01) ==
PROVIDERS: Emergency Provider Emergency Medicine; PCP Internal Medicine
DX: R22.42 Localized swelling, mass and lump, left lower limb (principal); J45.909 Unspecified asthma, uncomplicated; I10 Essential (primary) hypertension; W19.XXXA Unspecified fall, initial encounter
CPT/HCPCS: 36415; 80053; 83605; 85025; 85380; 96372; 99283; J1650

== ENCOUNTER 2022-11-03 12:15 | Outpatient (CLI) | payer MEDICARE, SELFPAY ==
--- NOTE | ~2022-11-03 | US_ITS ---
EXAMINATION:US venous doppler LE LT INDICATION:Left calf swelling and bruising status post fall TECHNIQUE: Multiple grayscale, color flow and Doppler images of the left lower extremity deep venous systems were obtained and reviewed. COMPARISON:No prior studies for comparison. FINDINGS: The common femoral, superficial femoral and popliteal veins demonstrate normal respiratory variation, augmentation and compressibility. Color flow is also seen within the posterior tibial, pe roneal, greater saphenous and profunda veins. IMPRESSION: 1: No lower extremity deep venous thrombosis. Reviewed, dictated and finalized at location []
== END 2022-11-03 12:16 | disposition home or self-care (01) ==
LOC: CHSIMG 12:17
PROVIDERS: PCP Internal Medicine; Visit Provider Emergency Medicine
DX: M79.89 Other specified soft tissue disorders (principal)
CPT/HCPCS: 93971

== ENCOUNTER 2022-12-13 03:15 | Day surgery (SDC) | payer MEDICARE, SELFPAY ==
[2022-11-30 15:06] VITALS: BMI 40.4
--- NOTE | 2022-12-12 16:29 | PM.HPGS ---
History of Present Illness History of Present Illness Consent: Risks, benefits, and alternatives have been discussed and questions answered. Patient agrees to proceed with procedure. Chief complaint: neoplasm screening Narrative: Delores Melchor is a 67 year old female referred for colon cancer screening. Her last colonoscopy was 11 years ago. Review of Systems Review of Systems: All systems reviewed & are unremarkable except as noted in HPI and below PMFSH Past Medical History Medical History Allergic rhinitis Asthma GERD (gastroesophageal reflux disease) Hypertension Surgical History Surgical History H/O dilation and curettage History of section History of knee replacement History of total abdominal hysterectomy Hx of cholecystectomy Social History Social History Smoking status: Never smoker Alcohol intake: current Alcohol use details: rarely Substance use: never Substance use type: does not use Living arrangements: with family Spiritual care concerns: No Meds Home Medications and Allergies Home Medications Medication Instructions Recorded Confirmed Type Vitamin D3 50,000 units BYMOUTH [id number] 10/31/22 12/13/22 History albuterol sulfate 90 mcg/actuation 2 puff inhalation QID PRN Wheezing 10/31/22 12/13/22 History aerosol inhaler (Ventolin HFA) azelastine 137 mcg (0.1 %) nasal 2 spray intranasal Q12H 10/31/22 12/13/22 History spray aerosol budesonide-formoterol HFA 160 2 puff inhalation Q12H 10/31/22 12/13/22 History mcg-4.5 mcg/actuation aerosol inhaler estradiol 0.01% (0.1 mg/gram) 0.5 g vaginal 3XW 10/31/22 12/13/22 History vaginal cream (Estrace) ipratropium 0.5 mg-albuterol 3 mg 3 ml inhalation PRN 10/31/22 12/13/22 History (2.5 mg base)/3 mL nebulization soln losartan 100 mg tablet 100 mg PO DAILY 10/31/22 12/13/22 History mecobalamin (vitamin B12) 1,000 1,000 mcg PO DAILY 10/31/22 12/13/22 History mcg chewable tablet (B12 Active) mometasone 50 mcg/actuation nasal 2 spray intranasal BID 10/31/22 12/13/22 History spray nebivolol 10 mg tablet (Bystolic) 10 mg PO DAILY 10/31/22 11/30/22 History ultrasound left lower leg #1 ea 10/31/22 Rx Allergies Allergy/AdvReac Type Severity Reaction Status Date / Time celecoxib [From Celebrex] Allergy Hives Verified 12/13/22 06:40 Penicillins Allergy Anaphylaxis Verified 12/13/22 06:40 Sulfa (Sulfonamide Allergy Hives Verified 12/13/22 06:40 Antibiotics) Exam Const: General: alert Orientation/consciousness: patient oriented x3 Resp: Auscultation: clear to auscultation bilaterally Cardio: Rhythm: regular rhythm GI: GI Palp: Yes Soft to palpation and No Tenderness to palpation present (GI) Neuro: General: patient oriented x3 Assessment and Plan Assessment and plan (1) Colon cancer screening: Code(s): Z12.11 - Encounter for screening for malignant neoplasm of colon Status: Acute Assessment and Plan: Colonoscopy with possible biopsy or polypectomy or cautery or injection of substances.
[2022-12-13 06:42] VITALS: BP 144/89; PULSE 72; RESP 17; O2SAT 99; BMI 41.2
[2022-12-13] MEDS: LACTATED RINGERS 1,000 ML 150 ML IV CONT (06:51)
--- NOTE | 2022-12-13 07:32 | WPDANESEPPF ---
Anes - Initial Pre Proc Eval Procedure: Operation Date: 12/13/22 08:00 Proposed Procedures p Screening Colonoscopy - Bharath Jo MD Date/Time: 12/13/22 07:32 Surgeon: Bharath Jo MD Pre Op Diagnosis: neoplasm screening Patient Data Age: 67 Gender: F Height: 1.68 m Weight: 115.8 kg Last Vital Signs Pulse 72 12/13/22 06:42 Resp 17 12/13/22 06:42 BP 144/89 H 12/13/22 06:42 Pulse Ox 99 12/13/22 06:42 O2 Del Method Room Air 12/13/22 06:42 Allergies Allergy/AdvReac Type Severity Reaction Status Date / Time celecoxib [From Celebrex] Allergy Hives Verified 12/13/22 06:40 Penicillins Allergy Anaphylaxis Verified 12/13/22 06:40 Sulfa (Sulfonamide Allergy Hives Verified 12/13/22 06:40 Antibiotics) Home Medications Medication Instructions Recorded Confirmed Type Vitamin D3 50,000 units BYMOUTH [id number] 10/31/22 12/13/22 History albuterol sulfate 90 mcg/actuation 2 puff inhalation QID PRN Wheezing 10/31/22 12/13/22 History aerosol inhaler (Ventolin HFA) azelastine 137 mcg (0.1 %) nasal 2 spray intranasal Q12H 10/31/22 12/13/22 History spray aerosol budesonide-formoterol HFA 160 2 puff inhalation Q12H 10/31/22 12/13/22 History mcg-4.5 mcg/actuation aerosol inhaler estradiol 0.01% (0.1 mg/gram) 0.5 g vaginal 3XW 10/31/22 12/13/22 History vaginal cream (Estrace) ipratropium 0.5 mg-albuterol 3 mg 3 ml inhalation PRN 10/31/22 12/13/22 History (2.5 mg base)/3 mL nebulization soln losartan 100 mg tablet 100 mg PO DAILY 10/31/22 12/13/22 History mecobalamin (vitamin B12) 1,000 1,000 mcg PO DAILY 10/31/22 12/13/22 History mcg chewable tablet (B12 Active) mometasone 50 mcg/actuation nasal 2 spray intranasal BID 10/31/22 12/13/22 History spray nebivolol 10 mg tablet (Bystolic) 10 mg PO DAILY 10/31/22 11/30/22 History ultrasound left lower leg #1 ea 10/31/22 Rx Patient hx anesthesia problems: none Family hx anesthesia problems: none Results Review: All pre-operative results and documents have been reviewed as part of the pre-operative evaluation. [facility] Past Medical History Medical History Allergic rhinitis Asthma GERD (gastroesophageal reflux disease) Hypertension Surgical History Surgical History H/O dilation and curettage History of section History of knee replacement History of total abdominal hysterectomy Hx of cholecystectomy Social History Social History Smoking status: Never smoker Alcohol intake: current Alcohol use details: rarely Substance use: never Substance use type: does not use Living arrangements: with family Spiritual care concerns: No Anes - Eval Final PreProcedure Day of Procedure 12/13/22 07:32 Patient weight: morbidly obese Heart: regular rate and rhythm Lungs: clear to auscultation Airway: Mallampati scale class II Neurological: alert and oriented Last oral intake: >/= 8 hours ASA classification: III Emergent: no Anesthetic plan: proceed Anesthesia type and monitoring: general GIVS and standard monitoring Results Review: All pre-operative results and documents have been reviewed as part of the pre-operative evaluation. Informed Consent: The patient's anesthetic plan and its attendant risks and benefits were discussed with the patient/family/POA. Questions were solicited and answers provided to the satisfaction of the patient/family/POA.
[2022-12-13 08:20] VITALS: BP 117/70; PULSE 64; RESP 22; O2SAT 99
[2022-12-13 08:30] VITALS: BP 131/65; PULSE 64; RESP 18; O2SAT 98
[2022-12-13 08:40] VITALS: BP 140/68; PULSE 60; RESP 20; O2SAT 100
== END 2022-12-13 08:51 | disposition home or self-care (01) ==
PROVIDERS: PCP Internal Medicine; Visit Provider Internal Medicine Gastroenterology
PROC: 0DJD8ZZ Inspection of Lower Intestinal Tract, Via Natural or Artificial Opening Endoscopic (ICD-10-PCS; CPT 45378; principal; 2022-12-13 08:00)
DX: Z12.11 Encounter for screening for malignant neoplasm of colon (principal); D12.5 Benign neoplasm of sigmoid colon; J45.909 Unspecified asthma, uncomplicated; I10 Essential (primary) hypertension; K21.9 Gastro-esophageal reflux disease without esophagitis; E66.01 Morbid (severe) obesity due to excess calories; Z68.41 Body mass index [BMI] 40.0-44.9, adult; Z79.51 Long term (current) use of inhaled steroids
CPT/HCPCS: 45385; 88305; J2704; J7120

== ENCOUNTER 2022-12-14 12:14 | Outpatient (CLI) | payer MEDICARE, SELFPAY ==
--- NOTE | ~2022-12-14 | MM_ITS ---
EXAMINATION: MM screening [facility] BI w debby HISTORY: Screening mammogram TECHNIQUE: Craniocaudal and mediolateral oblique 3-D tomosynthesis images were obtained and synthetic 2-D images were generated. CAD analysis was submitted and interpreted. COMPARISON: 12/13/2021, 12/06/2020, 12/02/2019 BREAST PARENCHYMAL COMPOSITION: There are scattered areas of fibroglandular density. FINDINGS: No suspicious mass, calcification, or architectural distortion are identified in either santos ast to suggest malignancy. There has been no suspicious interval change. IMPRESSION: 1. No mammographic evidence of malignancy. 2. Recommend routine screening mammography in one year. BI-RADS Category 1: Negative Reviewed, dictated and finalized at location A.
== END 2022-12-14 12:15 | disposition home or self-care (01) ==
LOC: CHSIMG 12:16
PROVIDERS: PCP Internal Medicine; Visit Provider Obstetrics & Gynecology
DX: Z12.31 Encounter for screening mammogram for malignant neoplasm of breast (principal)
CPT/HCPCS: 77063; 77067

== ENCOUNTER 2023-03-22 12:04 | Outpatient (CLI) | payer MEDICARE, SELFPAY ==
[2023-03-22 12:18] LABS: Appearance Urine Clear (Clear); Basophils Absolute Auto 0.02 K/mm3 (0.00-0.10); Basophils Percent Auto 0.3 % (0.0-1.0); Bilirubin Urine Negative (Negative); Blood Urine Negative (Negative); Color Urine Yellow (Yellow); Eosinophils Absolute Auto 0.11 K/mm3 (0.02-0.50); Eosinophils Percent Auto 1.5 % (1.0-6.0); Glucose Urine UA Negative (Negative); Hematocrit 36.7 % (35.0-42.0); Hemoglobin 12.2 g/dL (11.7-13.8); Immature Granulocyte Absolute 0.02 K/mm3 (0.00-0.00); Immature Granulocyte Percent A 0.3 % (0.0-0.0); Ketones Urine Negative (Negative); Leukocyte Esterase Ur Negative (Negative); Lymphocytes Absolute Auto 2.07 K/mm3 (1.10-4.50); Lymphocytes Percent Auto 28.8 % (18.0-42.0); Mean Corpuscular HGB Conc 33.2 g/dL (32.0-36.0); Mean Corpuscular Hemoglobin 27.1 pg (27.0-31.0); Mean Corpuscular Volume 81.6 fL (78.0-102.0); Mean Platelet Volume 10.3 fl (9.2-11.8); Monocytes Absolute Auto 0.62 K/mm3 (0.10-0.90); Monocytes Percent Auto 8.6 % (2.0-11.0); Neutrophils Absolute Auto 4.4 K/mm3 (1.7-7.2); Neutrophils Percent Auto 60.5 % (50.0-70.0); Nitrate Urine Negative (Negative); Platelet Count Result 264 K/mm3 (150-420); Protein Urine Negative (Negative); Red Cell Distribution Width 15.6 % (11.6-14.4); Urobilinogen Urine 0.2 mg/dL (0.2-1.0); White Blood Count 7.2 K/mm3 (4.8-10.8)
[2023-03-22 12:21] LABS: Add Urine Microscopic? NO
[2023-03-22 12:30] LABS: Hemoglobin A1C 6.3 % (<5.7)
[2023-03-22 12:52] LABS: Alanine Aminotransferase 27 U/L (14-59); Albumin Level 3.3 g/dL (3.4-5.0); Alkaline Phosphatase 75 U/L (46-116); Anion Gap 9 mmol/L (8-16); Aspartate Amino Transferase 24 U/L (15-37); Bilirubin,Total 0.7 mg/dL (0.00-1.00); Blood Urea Nitrogen 16 mg/dL (7-18); Calcium 8.8 mg/dL (8.5-10.1); Carbon Dioxide 26 mmol/L (21-32); Chloride 102 mmol/L (98-108); Cholesterol 209 mg/dL (0-200); Creatine Kinase 113 U/L (26-192); Estimated Glomerular Filt Rate 46; Glucose 101 mg/dL (70-99); HDL Direct 55 mg/dL (40-60); LDL Cholesterol Calculated 125 mg/dL (<130); Osmolality Calculated 285 mOsm/kg (285-295); Potassium 4.2 mmol/L (3.5-5.1); Sodium 137 mmol/L (136-145); Total Protein 6.3 g/dL (6.4-8.2); Triglycerides 147 mg/dL (0-150)
== END 2023-03-22 12:05 | disposition home or self-care (01) ==
LOC: CHSLAB 12:06
PROVIDERS: PCP Internal Medicine; Visit Provider Internal Medicine
DX: N18.2 Chronic kidney disease, stage 2 (mild) (principal); E78.2 Mixed hyperlipidemia; I10 Essential (primary) hypertension; R73.01 Impaired fasting glucose
CPT/HCPCS: 36415; 80053; 80061; 81003; 82550; 83036; 85025

== ENCOUNTER 2023-04-27 10:02 | Outpatient (CLI) | payer MEDICARE, SELFPAY ==
[2023-04-27 10:46] LABS: Strep Group A RT-PCR NOT DETECTED (Negative)
[2023-04-27 10:53] LABS: SARS-CoV-2 RNA PCR Positive (Negative)
== END 2023-04-27 10:03 | disposition home or self-care (01) ==
LOC: CHSLAB 10:05
PROVIDERS: PCP Internal Medicine; Visit Provider Internal Medicine
DX: U07.1 COVID-19 (principal); J06.9 Acute upper respiratory infection, unspecified
CPT/HCPCS: 87635; 87651

== ENCOUNTER 2023-09-25 11:25 | Outpatient (CLI) | payer MEDICARE, SELFPAY ==
[2023-09-25 11:59] LABS: Basophils Absolute Auto 0.06 K/mm3 (0.00-0.10); Basophils Percent Auto 0.7 % (0.0-1.0); Eosinophils Absolute Auto 0.11 K/mm3 (0.02-0.50); Eosinophils Percent Auto 1.2 % (1.0-6.0); Hemoglobin 12.5 g/dL (11.7-13.8); Immature Granulocyte Absolute 0.02 K/mm3 (0.00-0.00); Immature Granulocyte Percent A 0.2 % (0.0-0.0); Lymphocytes Absolute Auto 2.57 K/mm3 (1.10-4.50); Lymphocytes Percent Auto 27.9 % (18.0-42.0); Mean Corpuscular HGB Conc 32.1 g/dL (32-36); Mean Corpuscular Hemoglobin 25.3 pg (27.0-31.0); Mean Corpuscular Volume 78.9 fL (78.0-102.0); Mean Platelet Volume 10.4 fl (9.2-11.8); Monocytes Absolute Auto 0.77 K/mm3 (0.10-0.90); Monocytes Percent Auto 8.4 % (2.0-11.0); Neutrophils Absolute Auto 5.68 K/mm3 (1.70-7.20); Neutrophils Percent Auto 61.6 % (50.0-70.0); Platelet Count Result 336 K/mm3 (150-420); Red Blood Count 4.94 M/mm3 (4.20-5.40); Red Cell Distribution Width 15.6 % (11.6-14.4); White Blood Count 9.2 K/mm3 (4.8-10.8)
[2023-09-25 12:07] LABS: Creatinine Urine 249.04 mg/dL (40-278); MALB Creatinine Ratio 5.5 mg/g (0-30); Microalbumin Urine Random 13.7 mg/L
[2023-09-25 12:16] LABS: Appearance Urine Clear (Clear); Bilirubin Urine Negative (Negative); Blood Urine Negative (Negative); Color Urine Yellow (Yellow); Glucose Urine UA Negative (Negative); Ketones Urine Negative (Negative); Leukocyte Esterase Ur Negative (Negative); Nitrate Urine Negative (Negative); Protein Urine Negative (Negative); Specific Grav Ur 1.015 (1.010-1.020); Urobilinogen Urine 0.2 mg/dL (0.2-1.0)
[2023-09-25 12:17] LABS: Add Urine Microscopic? NO
[2023-09-25 12:26] LABS: Hemoglobin A1C 6.1 % (<5.7)
[2023-09-25 12:33] LABS: Alanine Aminotransferase 25 U/L (14-59); Albumin Level 3.6 g/dL (3.4-5.0); Alkaline Phosphatase 90 U/L (46-116); Anion Gap 9 mmol/L (4-12); Aspartate Amino Transferase 26 U/L (15-37); Bilirubin,Total 0.5 mg/dL (0.00-1.00); Blood Urea Nitrogen 20 mg/dL (7-18); Carbon Dioxide 25 mmol/L (21-32); Chloride 100 mmol/L (98-108); Cholesterol 213 mg/dL (0-200); Creatine Kinase 133 U/L (26-192); Estimated Glomerular Filt Rate 39; Free T3 3.01 pg/mL (2.18-3.98); Free T4 Free Thyroxine 1.22 ng/dL (0.76-1.46); Glucose 105 mg/dL (70-99); HDL Direct 61 mg/dL (40-60); LDL Cholesterol Calculated 128 mg/dL (<130); Osmolality Calculated 280 mOsm/kg (285-295); Potassium 4.4 mmol/L (3.5-5.1); Sodium 134 mmol/L (136-145); Thyroid Stimulating Hormone 1.17 uIU/mL (0.36-3.74); Total Protein 6.8 g/dL (6.4-8.2); Triglycerides 120 mg/dL (0-150)
== END 2023-09-25 11:26 | disposition home or self-care (01) ==
LOC: CHSLAB 11:26
PROVIDERS: PCP Internal Medicine; Visit Provider Internal Medicine
DX: I10 Essential (primary) hypertension (principal); N18.2 Chronic kidney disease, stage 2 (mild); E78.2 Mixed hyperlipidemia; R73.01 Impaired fasting glucose
CPT/HCPCS: 36415; 80053; 80061; 81003; 82043; 82550; 83036; 84439; 84443; 84481; 85025

== ENCOUNTER 2023-11-12 14:20 | Outpatient (CLI) | payer MEDICARE, SELFPAY ==
[2023-11-12 14:53] LABS: Anion Gap 10 mmol/L (4-12); Blood Urea Nitrogen 17 mg/dL (7-18); Calcium 8.6 mg/dL (8.5-10.1); Carbon Dioxide 23 mmol/L (21-32); Chloride 101 mmol/L (98-108); Estimated Glomerular Filt Rate 43; Glucose 127 mg/dL (70-99); Osmolality Calculated 281 mOsm/kg (285-295); Potassium 4.4 mmol/L (3.5-5.1); Sodium 134 mmol/L (136-145)
== END 2023-11-12 14:21 | disposition home or self-care (01) ==
LOC: CHSLAB 14:22
PROVIDERS: PCP Internal Medicine; Visit Provider Internal Medicine
DX: I10 Essential (primary) hypertension (principal)
CPT/HCPCS: 36415; 80048

== ENCOUNTER 2023-12-24 11:45 | Outpatient (CLI) | payer MEDICARE, SELFPAY ==
--- NOTE | ~2023-12-24 | MM_ITS ---
EXAMINATION: MM screening josué BI w debby HISTORY: Screening TECHNIQUE: Craniocaudal and mediolateral oblique 3-D tomosynthesis images were obtained and synthetic 2-D images were generated. CAD analysis was submitted and interpreted. COMPARISON: Comparison to multiple prior studies sequentially, with oldest reviewed study dated . BREAST PARENCHYMAL COMPOSITION: There are scattered areas of fibroglandular density. FINDINGS: There is no evidence of suspicious mass, calcification, or architectural distortion to sugg est malignancy in either breast. There has been no suspicious interval change. IMPRESSION: 1. No mammographic evidence of malignancy. 2. Recommend routine screening mammography in one year. 1BI-RADS Category 1: Negative Reviewed, dictated and finalized at location B.
== END 2023-12-24 11:46 | disposition home or self-care (01) ==
LOC: CHSIMG 11:45
PROVIDERS: PCP Internal Medicine; Visit Provider Obstetrics & Gynecology
DX: Z12.31 Encounter for screening mammogram for malignant neoplasm of breast (principal)
CPT/HCPCS: 77063; 77067

== ENCOUNTER 2024-02-08 11:06 | Outpatient (CLI) | payer MEDICARE, SELFPAY ==
--- NOTE | ~2024-02-08 | XR_ITS ---
EXAMINATION: XR chest 2V DATE: 02/08/2024 11:42 INDICATION: Cough, fever, and chills. TECHNIQUE: Frontal and lateral views of the chest were obtained. COMPARISON: Chest 2 views 08/16/2022 FINDINGS: There is no pneumonia, pleural effusion, or pneumothorax. The heart size is normal. IMPRESSION: 1. No acute cardiopulmonary disease. Reviewed, dictated and finalized at location A.
[2024-02-08 11:44] LABS: Basophils Absolute Auto 0.03 K/mm3 (0.00-0.10); Basophils Percent Auto 0.2 % (0.0-1.0); Eosinophils Absolute Auto 0.01 K/mm3 (0.02-0.50); Eosinophils Percent Auto 0.1 % (1.0-6.0); Hematocrit 38.1 % (35.0-42.0); Hemoglobin 12.6 g/dL (11.7-13.8); Immature Granulocyte Absolute 0.06 K/mm3 (0.00-0.00); Immature Granulocyte Percent A 0.4 % (0.0-0.0); Lymphocytes Absolute Auto 1.41 K/mm3 (1.10-4.50); Lymphocytes Percent Auto 10.1 % (18.0-42.0); Mean Corpuscular HGB Conc 33.1 g/dL (32-36); Mean Corpuscular Hemoglobin 25.9 pg (27.0-31.0); Mean Corpuscular Volume 78.4 fL (78.0-102.0); Mean Platelet Volume 10.7 fl (9.2-11.8); Monocytes Absolute Auto 1.02 K/mm3 (0.10-0.90); Monocytes Percent Auto 7.3 % (2.0-11.0); Neutrophils Absolute Auto 11.43 K/mm3 (1.70-7.20); Neutrophils Percent Auto 81.9 % (50.0-70.0); Platelet Count Result 306 K/mm3 (150-420); Red Blood Count 4.86 M/mm3 (4.20-5.40); Red Cell Distribution Width 15.7 % (11.6-14.4)
[2024-02-08 11:52] LABS: Add Urine Microscopic? YES; Appearance Urine Clear (Clear); Bilirubin Urine Negative (Negative); Blood Urine Negative (Negative); Color Urine Yellow (Yellow); Glucose Urine UA Negative (Negative); Ketones Urine Negative (Negative); Leukocyte Esterase Ur Negative (Negative); Nitrate Urine Negative (Negative); Protein Urine Trace (Negative); Specific Grav Ur 1.025 (1.010-1.020); Urobilinogen Urine 0.2 mg/dL (0.2-1.0)
[2024-02-08 12:00] LABS: Alanine Aminotransferase 26 U/L (14-59); Albumin Level 3.5 g/dL (3.4-5.0); Alkaline Phosphatase 107 U/L (46-116); Amylase 73 U/L (25-115); Anion Gap 11 mmol/L (4-12); Aspartate Amino Transferase 27 U/L (15-37); Bilirubin,Total 0.7 mg/dL (0.00-1.00); Blood Urea Nitrogen 16 mg/dL (7-18); CRP 4.9 mg/dL (0.0-0.9); Calcium 8.7 mg/dL (8.5-10.1); Carbon Dioxide 22 mmol/L (21-32); Chloride 99 mmol/L (98-108); Creatine Kinase 64 U/L (26-192); Estimated Glomerular Filt Rate 37; Glucose 118 mg/dL (70-99); Lipase 36 U/L (16-77); Osmolality Calculated 276 mOsm/kg (285-295); Potassium 4.2 mmol/L (3.5-5.1); Sodium 132 mmol/L (136-145); Total Protein 7.4 g/dL (6.4-8.2)
[2024-02-08 12:04] LABS: Bacteria Urine Trace /hpf; Mucus Urine Moderate /lpf; RBC Urine None seen /hpf (0-2); Squamous Epithelial Cell Urine Moderate /hpf (Few); WBC Urine None seen /hpf (0-3)
[2024-02-08 12:43] LABS: Erythrocyte Sedimentation Rate 18 mm/hr (0-20)
== END 2024-02-08 11:07 | disposition home or self-care (01) ==
LOC: CHSLAB 11:08
PROVIDERS: PCP Internal Medicine; Visit Provider Internal Medicine
DX: R11.0 Nausea (principal); R50.9 Fever, unspecified
CPT/HCPCS: 36415; 71046; 80053; 81001; 82150; 82550; 83690; 85025; 85652; 86140; 87040; 87086; 87088

== ENCOUNTER 2024-02-14 12:20 | Outpatient (CLI) | payer MEDICARE, SELFPAY ==
[2024-02-14 12:36] LABS: Basophils Absolute Auto 0.03 K/mm3 (0.00-0.10); Basophils Percent Auto 0.3 % (0.0-1.0); Eosinophils Absolute Auto 0.11 K/mm3 (0.02-0.50); Eosinophils Percent Auto 1.2 % (1.0-6.0); Hematocrit 36.5 % (35.0-42.0); Hemoglobin 11.9 g/dL (11.7-13.8); Immature Granulocyte Absolute 0.04 K/mm3 (0.00-0.00); Immature Granulocyte Percent A 0.4 % (0.0-0.0); Lymphocytes Absolute Auto 2.19 K/mm3 (1.10-4.50); Lymphocytes Percent Auto 24.5 % (18.0-42.0); Mean Corpuscular HGB Conc 32.6 g/dL (32-36); Mean Corpuscular Hemoglobin 25.8 pg (27.0-31.0); Monocytes Absolute Auto 0.72 K/mm3 (0.10-0.90); Neutrophils Absolute Auto 5.86 K/mm3 (1.70-7.20); Neutrophils Percent Auto 65.6 % (50.0-70.0); Platelet Count Result 313 K/mm3 (150-420); Red Blood Count 4.62 M/mm3 (4.20-5.40); Red Cell Distribution Width 15.3 % (11.6-14.4)
[2024-02-14 13:31] LABS: Anion Gap 11 mmol/L (4-12); Blood Urea Nitrogen 17 mg/dL (7-18); Calcium 8.7 mg/dL (8.5-10.1); Carbon Dioxide 23 mmol/L (21-32); Chloride 100 mmol/L (98-108); Estimated Glomerular Filt Rate 42; Glucose 92 mg/dL (70-99); Osmolality Calculated 279 mOsm/kg (285-295); Potassium 4.4 mmol/L (3.5-5.1); Sodium 134 mmol/L (136-145)
== END 2024-02-14 12:21 | disposition home or self-care (01) ==
LOC: CHSLAB 12:22
PROVIDERS: PCP Internal Medicine; Visit Provider Internal Medicine
DX: E86.0 Dehydration (principal); D72.829 Elevated white blood cell count, unspecified
CPT/HCPCS: 36415; 80048; 85025

== ENCOUNTER 2024-06-20 12:21 | Outpatient (CLI) | payer MEDICARE, SELFPAY ==
--- NOTE | ~2024-06-20 | US_ITS ---
EXAMINATION: US soft tissue lower back DATE: 06/20/2024 12:39 INDICATION: Lower back mass. TECHNIQUE: Multiple grayscale and Doppler ultrasound images of the lower back were obtained. COMPARISON: None FINDINGS: In the lower back, there is a 3.7 x 3.6 x 1.6 cm hyperechoic subcutaneous mass with similar echotexture to normal subcutaneous fat. IMPRESSION: 1. 3.7 cm subcutaneous mass in the lower back, which may be inflammation or a lipoma. Reviewed, dictated and finalized at location A. [facility] NURSING DIRECTOR IMPRESSION: 1. 3.7 cm subcutaneous mass in the lower back, which may be inflammation or a l ipoma.
--- OUTSIDE RECORDS SUMMARY | 2024-06-20 12:25 | XMS_ITS | Clinical Summary ---
Author Organization [facility] Address [address] [place] [address] Care Team Providers Care Assessment Nurse Practitioner Name Role Phone Tracy Rodas MD Primary Care Provider [phone] Chinedu Villalobos MD Unavailable [phone] Source Comments [facility],non-owned Affiliates and Associated Physician Practices is amultiple site organization consisting of ambulatory clinics and hospital sitesin [place], [place], [place] and [place]. This disclosure is being madepursuant to the Care Everywhere program and may not contain all information available regarding this patient. Last updated 18.[facility] Allergies Active Allergy Reactions Criticality Noted Date Comments Ambrosia Artemisiifolia, Ragweed Shortness of Breath,Rhinitis High 09/21/2021 animal dander [Other] Shortness of Breath High 09/21 Received name: Animal Dander Povidone Iodine Other 01/06/2015 Causes skin to peel if not washed off soon enough Celecoxib 06/14/2017 rash Nickel Urticaria Medium 12/31/2014 Area turns green Penicillins Anaphylaxis,Urticaria High 04/07/2013 Passed PCN skin testing 10/03/16 Sulfa Drugs Rash Medium 02/24/2019 Tetracycline GI Discomfort Low 09/07/2020 Medications * Be aware that medications may not be up to date on this document. Alwaysverify current medications with the patient. Medication Sig Dispensed Refills Start Date End Date Status Cyanocobalamin (VITAMIN B-12 PO) Take 1,000 mcg by mouth once daily Active Emollient (CERAVE) CREA by Apply externally route once daily Active losartan (COZAAR) 100 MG tablet Take 1 (one) tablet by mouth once daily 1 02/21/2016 Active estradiol (ESTRACE) 0.1 MG/GM vaginal cream Insert 0.5 g into the vagina Three times a week 11/05/2015 Active vitamin D, ergocalciferol, (DRISDOL) 01601 units capsule Take 1 (one) capsule by mouth every 14 days 1 09/06/2018 Active nebivolol (Bystolic) 10 MG tablet Take 1 (one) tablet by mouth once daily Active ciprofloxacin (Cipro) 250 MG tablet Take 1 (one) tablet by mouth 2 times daily Active azelastine (Astelin) 0.1 % nasal sprayIndications:Sea ramona allergic rhinitis due to pollen [place] 2 (two) sprays into each nostril 2 times daily 90 mL 3 10/19/2023 Active albuterol HFA (Proventil; Ventolin; Proair) 108 (90 Base) MCG/ACT inhalerIndications:M oderate persistent asthma without complication (HCC) Inhale 2 (two) puffs by mouth every 4 hours as needed for Wheezing 18 g 5 10/19/2023 Active mometasone (Nasonex) 50 MCG/ACT nasal sprayIndications:Sea ramona allergic rhinitis due to pollen [place] 1 (one) spray into each nostril 2 times daily 51 g 3 10/19/2023 Active albuterol (Proventil;Ventolin) (2.5 MG/3ML) 0.083% nebulizer solutionIndications: Moderate persistent asthma without complication (HCC) Inhale 2.5 (two and one-half) mg by mouth every 4 hours as needed for Shortness of Breath 75 mL 4 10/19/2023 Active budesonide-formotero l (Symbicort) 160-4.5 MCG/ACT inhalerIndications:M oderate persistent asthma without complication (HCC) Inhale 2 (two) puffs by mouth every 12 hours 30.6 g 11 10/19/2023 Active esomeprazole (NexIUM) 40 MG capsuleIndications:G astroesophageal reflux disease, unspecified whether esophagitis present Take 1 (one) capsule by mouth daily before breakfast 90 capsule 3 10/19/2023 Active Active Problems Problem Noted Date Diagnosed Date Moderate persistent asthma without complication 05/31/2020 Allergic rhinitis 05/31/2020 [place] 05/31/2020 Status post bilateral knee replacements 05/27/19 19 Iliotibial band syndrome of right side 6 History of total right knee replacement 05/17/20 15 Pes anserine bursitis 05/17/2015 Essential hypertension 04/07/2013 Overview (02/18/2015): Asthma 04/07/2013 Overview (03/28/2015): Osteoarthrosis involving lower leg 04/07/2013 Overview (08/14/2015): 2015 IMO Updt Gastroesophageal reflux disease 08/29/2012 Immunizations Name Administration Dates Next Due Covid Pfizer primary Monoval ent 5-11yr 0.2ml 02/14/2021 Covid Pfizer primary monoval ent 12+ yr 0.3mL Purple cap 01/25/2022,08/06/2020,07/14/2020 INFLUENZA VACCINE 02/20/2022,,02/19/2019,2017 PNEUMOCOCCAL PCV7 CONJ, PEDS 01/20/2020 Social History Tobacco Use Types Packs/Day Years Used Date Smoking Tobacco: Never Smokeless Tobacco: Never Tobacco Cessation:Counseling Given: Not Answered Alcohol Use Standard Drinks/Week Comments Yes 0 (1 standard drink = 0.6 oz pur e alcohol) social PHQ-2 Answer Date Recorded Patient Health Questionnaire-2 Score 0 10/19/2023 Sex and Gender Information Value Date Recorded Sex Assigned at Not on file Gender Identity Not on file Sexual Orientation Not on file Last Filed Vital Signs Vital Sign Reading Time Taken Comments Blood Pressure 149/86 10/19/2023 11:26 AM CDT Pulse 57 10/19/2023 11:26 AM CDT Temperature 37 ??C (98.6 ??F) 10/19/2023 11:26 AM CDT Respiratory Rate 18 10/19/2023 11:26 AM CDT Oxygen Saturation 97% 10/19/2023 11:26 AM CDT Inhaled Oxygen Concentration - - Weight 119.7 kg (264 lb) 10/19/2023 11:26 AM CDT Height 167.6 cm (5' 6 ) 10/19/2023 11:26 AM CDT Body Mass Index 42.61 10/19/2023 11:26 AM CDT Plan of Treatment Upcoming Encounters Date Type Department Care Team (Late st Contact Info) Description 10/17/2024 12:00 PM CDT Office Visit [facility] - Allergy [address] [place] [address], [place] [address] Christiano Grey MD [address] [place] [address] OF ALLERGY/[place] [address] Health Maintenance Due Date Last Done Comments BONE DENSITY TESTING 1955 COLOGUARD (AGES 45-75) - COLON CA SCREENING 1957 COLON MONITORING 1957 COLONOSCOPY - COLON CA SCREENING 1957 CT COLONOGRAPHY - COLON CA SCREENING 1957 Colorectal Cancer Screening 1957 FIT - COLON CA SCREENING 1957 FLEX SIG - COLON CA SCREENING 1957 LIPID TESTING 1957 MAMMOGRAM 1957 HEPATITIS C SCREENING 08/24/1975 DTAP/TDAP/TD VACCINES (1 - Tdap) 1976 PNEUMOCOCCAL VACCINE 50+ (1 of 2 - PCV) 1976 ZOSTER VACCINE (1 of 2) 08/29/2007 Respiratory Syncytial Virus (RSV) Vaccine Pt: or over 60 yrs (1 - Risk 60-74 years 1-dose series) 2017 SCREENING FOR DIABETES 03/16/2021 02/19/2015 COVID-19 VACCINE ( season) 2024 01/25/2022, 02/14/2021, 08/06/2020, Additional history exists INFLUENZA VACCINE (#1) 2024 2, 02/14/2021, 02/19/2019, Additional history exists DEPRESSION SCREENING 05/21/2024 10/19/2023, 10/20/19 23 MEDICARE AWV ? CALENDAR YEAR 2024 HEPATITIS B VACCINE Aged Out No longe r eligible based on patient's age to complete this topic HIB VACCINE Aged Out No longer eligi ble based on patient's age to complete this topic HPV VACCINE Aged Out No longer eligi ble based on patient's age to complete this topic MENINGOCOCCAL (Group B) VACCINE Aged Out No longer eligible based on patient's age to complete this topic MENINGOCOCCAL VACCINE Aged Out No ran lidia eligible based on patient's age to complete this topic Medical Devices Implanted Type Area Missing Persons Investigator Device Identifier Shelf Expiration Date Model / Serial / Lot Graham Bone Petty Hv Implanted:Qty: 1 on 03/15/2015 by Chinedu Villalobos MD at [facility] Right: [employer] 10/18/2016 [id number] / / [id number] Titanium Femoral Implant 67.5mm Right Implanted:Qty: 1 on 03/15/2015 by Chinedu Villalobos MD at [facility] Right: [employer] 10/18/2024 [id number] / / [id number] Butn Pat Arcom Wire Polyeth Xsm 28 X 8 Implanted:Qty: 1 on 03/15/2015 by Chinedu Villalobos MD at [facility] Right: [employer] 01/21/2020 [id number] / / [id number] Stem Fem Maxim I-Beam Prim 40mm Implanted:Qty: 1 on 03/15/2015 by Chinedu Villalobos MD at [facility] Right: [employer] 02/17/2025 [id number] / / [id number] Ty Tibial Prim Intlok 71mm Implanted:Qty: 1 on 03/15/2015 by Chinedu Villalobos MD at [facility] Right: [employer] 10/14/2024 [id number] / / [id number] Brdg Tib Gayatri Stbl Implanted:Qty: 1 on 03/15/2015 by Chinedu Villalobos MD at [facility] Right: [employer] 12/25/2019 [id number] / / [id number] Cmpnt Ptlr 28mm 1 Pg Wire Ascnt Arcm Kn Implanted:Qty: 1 on 05/24/2017 by Chinedu Villalobos MD at [facility] Left: Knee Deric [employer] 04/23/2022 [id number] / / [id number] Metal Alternative Cr Femoral 65mm Implanted:Qty: 1 on 05/24/2017 by Chinedu Villalobos MD at [facility] Left: [employer]nee [employer] 01/22/2027 [id number] / / [id number] Brng [id number] Vngrd Arcm Kn Ant Stab Implanted:Qty: 1 on 05/24/2017 by Chinedu Villalobos MD at [facility] Left: Knee [employer] 04/23/2022 [id number] / / [id number] Cmnt Bone Cblt 40gm Hvisc Strl Implanted:Qty: 1 on 05/24/2017 by Chinedu Villalobos MD at [facility] Left: Knee [employer] 09/21/2018 [id number] / / [id number] Stem Tib 40mm As Mx Kn Prm I Beam Implanted:Qty: 1 on 05/24/2017 by Chinedu Villalobos MD at [facility] Left: Knee [employer] 11/21/2026 [id number] / / [id number] Tray Tib 71mm As Mx Kn Intlk Ti Cr Prm Implanted:Qty: 1 on 05/24/2017 by Chinedu Villalobos MD at [facility] Left: Knee [employer] 03/24/2027 [id number] / / [id number] Procedures Procedure Name Priority Date/Time Associated Diagnosis Comments COMPREHENSIVE METABOLIC PANEL Routine 02/19/2015 11:39 AM CDT Preoperative examination from Last 3 Months or Most Recently Relevant to Health Maintenance Results * (ABNORMAL) COMPREHENSIVE METABOLIC PANEL (02/19/2015 11:39 AM CDT) Pathologist [facility] Glucose 99 74 - 106 mg/dL 02/19/2015 12:10 PM CDT [facility] Sodium 138 136 - 145 mmol/L 02/19/2015 12:10 PM CDT [facility] Potassium 3.4(L) 3.5 - 5.1 mmol/L 02/19/2015 12:10 PM CDT [facility] Chloride 103 98 - 107 mmol/L 02/19/2015 12:10 PM CDT [facility] CO2 26 22 - 31 mmol/L 02/19/2015 12:10 PM CDT [facility] Calcium 9.5 8.5 - 10.1 mg/dL 02/19/2015 12:10 PM CDT [facility] Anion Gap 9 5 - 20 mmol/L 02/19/2015 12:10 PM CDT [facility] BUN 17 7 - 21 mg/dL 02/19/2015 12:10 PM CDT [facility] Creatinine 1.10 0.50 - 1.30 mg/dL 02/19/2015 12:10 PM CDT [facility] Alkaline Phosphatase 80 38 - 126 U/L 02/19/2015 12:10 PM CDT [facility] ALT 33 12 - 78 U/L 02/19/2015 12:10 PM CDT [facility] AST 17 5 - 40 U/L 02/19/2015 12:10 PM CDT [facility] Protein Total 7.5 6.4 - 8.2 gm/dL 02/19/2015 12:10 PM CDT [facility] Albumin 4.0 3.4 - 5.0 gm/dL 02/19/2015 12:10 PM CDT [facility] Bilirubin Total 0.6 0.2 - 1.0 mg/dL 02/19/2015 12:10 PM CDT [facility] eGFR by MDRD 51(L) >60 mL/min/1.7 3m2 02/19/2015 12:10 PM CDT [facility] eGFR by MDRD >60 >60 mL/min/1.7 3m2 02/19/2015 12:10 PM CDT [facility] Blood BLOOD SPECIMEN / Unknown 02/19/2015 11:39 AM CDT 02/19/2015 11:48 AM CDT Chinedu Villalobos MD LAB - CHEMISTRY ANGIE DOS SANTOS [facility] Organization Address City/State/ZIP Co de Phone Number [facility] [address] [place] [address] from Last 3 Months or Most Recently Relevant to Health Maintenance Advance Directives Documents on File Type Date Recorded Patient Boot 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
--- OUTSIDE RECORDS SUMMARY | 2024-06-20 12:25 | XMS_ITS | Referral Summary ---
Author Organization [facility] Address [address] [place] [address] Care Team Providers Care Repair Order Clerk Name Role Phone Tracy Rodas MD Primary Care Provider [phone] Chinedu Villalobos MD Unavailable [phone] Source Comments [facility],non-owned Affiliates and Associated Physician Practices is amultiple site organization consisting of ambulatory clinics and hospital sitesin [place], [place], [place] and [place]. This disclosure is being madepursuant to the Care Everywhere program and may not contain all information available regarding this patient. Last updated 18.[facility] Allergies Active Allergy Reactions Criticality Noted Date [...] week 11/05/2015 Active vitamin D, ergocalciferol, (DRISDOL) 79182 units capsule Take 1 (one) capsule by mouth every 14 days 1 09/06/2018 Active nebivolol (Bystolic) 10 MG tablet Take 1 (one) tablet by mouth once daily Active ciprofloxacin (Cipro) 250 MG tablet Take 1 (one) tablet by mouth 2 times daily Active azelastine (Astelin) 0.1 % nasal sprayIndications:Sea ramona allergic rhinitis due to pollen [place] 2 (two) sprays into each nostril 2 times daily 90 mL 3 10/19/2023 Active albuterol HFA (Proventil; Ventolin; Proair) 108 (90 Base) MCG/ACT inhalerIndications:M oderate persistent asthma without complication (HCC) Inhale 2 (two) puffs by mouth every 4 hours as needed for Wheezing 18 g 5 10/19/2023 Active mometasone (Nasonex) 50 MCG/ACT nasal sprayIndications:Sea ramona allergic rhinitis due to pollen [place] 1 (one) spray into each nostril 2 [...] Mass Index 42.61 10/19/2023 11:26 AM CDT Functional Status Functional Status Response Date of Assess ment Is person deaf or have serious hearing difficult y? No 05/24/2017 Is person blind or have serious difficulty seein g? No 05/24/2017 Does person have serious dif ficulty walking/climbing stairs? No 05/24/2017 Does person have difficulty dressing/bathing? No 05/24/2017 Does person have difficulty doing errands alone? No 05/24/2017 Cognitive Status Response Date of Assessm ent Does person have difficulty concentrating/remembering/making decisions? No 05/24/2017 Plan of Treatment Upcoming Encounters Date Type Department Care Team (Late st Contact Info) Description 10/17/2024 12:00 PM CDT Office Visit [facility] - Allergy [address] [place] [address], [facility] [place] [address] Christiano Grey MD [address] [place] [address] OF ALLERGY/[place] [address] Medical Devices Implanted Type Area Instrument Repair Supervisor Device Identifier Shelf Expiration Date Model / Serial / Lot Graham Bone Ingram Hv Implanted:Qty: 1 on 03/15/2015 by Chinedu Villalobos MD at [facility] Right: [employer] 10/18/2016 [id number] / / [id number] Titanium Femoral Implant 67.5mm Right Implanted:Qty: 1 on 03/15/2015 by Chinedu Villalobos MD at [facility] Right: [employer] 10/18/2024 [id number] / / [id number] Sandeepn Barbara Arcom Wire Polyeth Xsm 28 X 8 Implanted:Qty: 1 on 03/15/2015 by Chinedu Villalobos MD at [facility] Right: [employer] 01/21/2020 [id number] / / [id number] Stem Fem Maxim I-Beam Prim 40mm Implanted:Qty: 1 on 03/15/2015 by Chinedu Villalobos MD at [facility] Right: [employer] 02/17/2025 [id number] / / [id number] Ty Tibial Prim Intlok 71mm Implanted:Qty: 1 on 03/15/2015 by Chinedu Villalobos MD at [facility] Right: [employer] 10/14/2024 [id number] / / [id number] Brdg Tib Gayatri Stbl Implanted:Qty: 1 on 03/15/2015 by Chinedu Villalobos MD at [facility] Right: [employer] 12/25/2019 [id number] / / [id number] Cmpnt Ptlr 28mm 1 Pg Wire Ascnt Arcm Kn Implanted:Qty: 1 on 05/24/2017 by Chinedu Villalobos MD at [facility] Left: Knee [employer] 04/23/2022 [id number] / / [id number] Metal Alternative Cr Femoral 65mm Implanted:Qty: 1 on 05/24/2017 by Chinedu Villalobos MD at [facility] Left: [employer]nee [employer] 01/22/2027 [id number] / / [id number] Brng [id number] Vngrd Arcm Kn Ant Stab Implanted:Qty: 1 on 05/24/2017 by Chinedu Villalobos MD at [facility] Left: Knee [employer] 04/23/2022 [id number] / / [id number] Cmnt Bone Cblt 40gm Hvisc Strl Implanted:Qty: 1 on 05/24/2017 by Chinedu Villalobos MD at [facility] Left: Knee [employer] 09/21/2018 600-15-000 / / [id number] Stem Tib 40mm As Mx Kn Prm I Beam Implanted:Qty: 1 on 05/24/2017 by Chinedu Villalobos MD at [facility] Left: Knee [employer] 11/21/2026 [id number] / / [id number] Tray Tib 71mm As Mx Kn Intlk Ti Cr Prm Implanted:Qty: 1 on 05/24/2017 by Chinedu Villalobos MD at [facility] Left: Knee [employer] 03/24/2027 [id number] / / [id number] Procedures Procedure Name Priority Date/Time Associated Diagnosis Comments COMPREHENSIVE METABOLIC PANEL Routine 02/19/2015 11:39 AM CDT Preoperative examination from Last 3 Months or Most Recently Relevant to Health Maintenance Results * (ABNORMAL) COMPREHENSIVE METABOLIC PANEL (02/19/2015 11:39 AM CDT) Glucose 99 74 - 106 mg/dL 02/19/2015 12:10 PM CDT [facility] Sodium 138 136 - 145 mmol/L 02/19/2015 12:10 PM CDT [facility] Potassium 3.4(L) 3.5 - 5.1 mmol/L 02/19/2015 12:10 PM CDT [facility] Chloride 103 98 - 107 mmol/L 02/19/2015 12:10 PM CDT [facility] CO2 26 22 - 31 mmol/L 02/19/2015 12:10 PM CDT [facility] Calcium 9.5 8.5 - 10.1 mg/dL 02/19/2015 12:10 PM CDT [facility] Anion Gap 9 5 - 20 mmol/L 02/19/2015 12:10 PM CDT [facility] BUN 17 7 - 21 mg/dL 02/19/2015 12:10 PM CDT [facility] Creatinine 1.10 0.50 - 1.30 mg/dL 02/19/2015 12:10 PM CDT [facility] Alkaline Phosphatase 80 38 - 126 U/L 02/19/2015 12:10 PM CDT [facility] ALT 33 12 - 78 U/L 02/19/2015 12:10 PM CDT [facility] AST 17 5 - 40 U/L 02/19/2015 12:10 PM CDT [facility] Protein Total 7.5 6.4 - 8.2 gm/dL 02/19/2015 12:10 PM CDT [facility] Albumin 4.0 3.4 - 5.0 gm/dL 02/19/2015 12:10 PM CDT [facility] Bilirubin Total 0.6 0.2 - 1.0 mg/dL 02/19/2015 12:10 PM CDT [facility] eGFR by MDRD 51(L) >60 mL/min/1.7 3m2 02/19/2015 12:10 PM CDT [facility] eGFR by MDRD >60 >60 mL/min/1.7 3m2 02/19/2015 12:10 PM CDT [facility] Blood BLOOD SPECIMEN / Unknown 02/19/2015 11:39 AM CDT 02/19/2015 11:48 AM CDT Chinedu Villalobos MD LAB - CHEMISTRY ANGIE DOS SANTOS [facility] [address] [place] [address] from Last 3 Months or Most Recently Relevant to Health Maintenance Administered Medications Advance Directives Documents on File Type Date Recorded Patient Jigsaw Operator Expl anation Adv Directive/Living Will/POA 03/22/2015 3:11 PM * Full Code (Latest Code Status on File) Date Activated Date Inactivated Comments 05/24/2017 10:30 AM 05/26/2017 4:09 PM * Full Code Date Activated Date Inactivated Comments 03/15/2015 12:14 PM 03/18/2015 1:10 PM Care Teams Repair Order Clerk Relationship Specialty Start Date End Date Tracy Rodas MD PCP - General Internal Medicine 04/07/13 [place] [id number] [address] Orthopedic Surgery 04/07/13
--- OUTSIDE RECORDS SUMMARY | 2024-06-20 12:25 | XMS_ITS | Encounter Summary ---
Author Organization [facility] Address [address] [place] [address] Care Team Providers Care Machine Inker Name Role Phone Tracy Rodas MD Primary Care Provider [phone] Chinedu Villalobos MD Unavailable Encounter Details Date Type Department Care Team (Late st Contact Info) Description 06/15/2015 Therapy Visit [facility] Orthopedics [id number] [address] [place] [address] [address] Social History Tobacco Use Types Packs/Day Years Used Date Smoking Tobacco: Never Alcohol Use Standard Drinks/Week Comments Yes 0 (1 standard drink = 0.6 oz pur e alcohol) social Sex and Gender Information Value Date Recorded Sex Assigned at Not on file Gender Identity Not on file Sexual Orientation Not on file documented as of this encounter Functional Status Functional Status Response Date of Assess ment Is person deaf or have serious hearing difficult y? No 03/15/2015 Is person blind or have serious difficulty seein g? No 03/15/2015 Does person have serious dif ficulty walking/climbing stairs? No 03/15/2015 Does person have difficulty dressing/bathing? No 03/15/2015 Does person have difficulty doing errands alone? No 03/15/2015 Cognitive Status Response Date of Assessm ent Does person have difficulty concentrating/remembering/making decisions? No 03/15/2015 documented as of this encounter Plan of Treatment Upcoming Encounters Date Type Department Care Team (Late st Contact Info) Description 10/17/2024 12:00 PM CDT Office Visit [facility] - Allergy [address] [place] [address], [place] [address] Christiano Grey MD [address] [place] [address] DIV [place] ALLERGY/[place] [address] documented as of this encounter Visit Diagnoses Not on filedocumented in this encounter Care Teams Machine Inker Relationship Specialty Start Date End Date Tracy Rodas MD PCP - General Internal Medicine 04/07/13 [place] [address] [facility] [address] [place] [address] Orthopedic Surgery 04/07/13 documented as of this encounter
--- OUTSIDE RECORDS SUMMARY | 2024-06-20 12:25 | XMS_ITS | Continuity of Care Document ---
Author Organization [facility] Address [address] [place] [address] Phone Care Team Providers Care Manager Of Network Name Role Phone Unavailable Unavailable Unavailable Allergies, Adverse Reactions, Alerts Substance Reaction Status Criticality Sulfa (Sulfonamide Antibiotics) Active No Information Penicillins Active No Information celecoxib Active No Information Medications Medication Instructions Dosage Effective Dates (start - stop) Status Comments Flovent HFA 110 mcg/actuation aerosol inhaler inhale 1 puff by inhalation route 2 times every day - Active Nasonex 50 mcg/actuation [place] spray 2 spray by intranasal route every day in each nostril - Active losartan 100 mg tablet take 1 tablet by oral route every day 100 MG - Active albuterol sulfate HFA 90 mcg/actuation aerosol inhaler inhale 2 puff by inhalation route every 4 - 6 hours as needed - Active Bystolic 5 mg tablet take 1 tablet by oral route every day 5 MG - Active Dymista 137 mcg-50 mcg/spray nasal spray spray 1 spray by intranasal route 2 times every day in each nostril 1.00 spray - Active azithromycin 250 mg tablet take 2 tablet by oral route every day for 1 day then 1 tablet (250 mg) by oral route once daily for 4 days 500 MG - No Longer Active prednisone 20 mg tablet take 1 tablet by oral route 3 times every day for 1 day, then 2 daily for 3 days, then 1 daily for 3 days - No Longer Active cefdinir 300 mg capsule take 1 capsule by oral route every 12 hours 300 MG - No Longer Active prednisone 20 mg tablet take 1 tablet by oral route 3 times every day 20 MG - No Longer Active Procedures Procedure Date Inj Decadron 1mg [...] Location Reason(s) For Visit Diagnoses Date Provider Providers Copied on Encounter Offic/outpt E&m [facility], [address], [place], [place], [id number], [place] tel:[phone] [facility] asthma (chief complaint) Mild intermittent asthma with acute exacerbation 9 No Information Family History Family Member Type Diagnosis Age At Onset No Information Payers Payer name Insurance type Covered green party ID Neal manning(s) [facility] [id number] Social History Type Description Quantity Date Captured [...] flovent. took 40 mg pred. this morning.. Reason For Referral Reason For Referral No Information Plan Of Treatment Date Type Action Status [...] Due on due Goal Colonoscopy. Due on 019 due Goal Mammogram. Due on 9 due [...] flovent. took 40 mg pred. this morning.. Functional Status Date Functional Assessmen t Pain Score 0/10 Medications Administered Medication Instructions Dosage Effective Dates (start - stop) Status Comments azithromycin 250 mg tablet take 2 tablet by oral route every day for 1 day then 1 tablet (250 mg) by oral route once daily for 4 days 500 MG - No Longer Active Instructions Date Instruction Additional Infor matroyal No Information Assessments Type Assessment Date assessment Mild intermittent asthma with ac tawnya exacerbation Mental Status Date Cognitive Assessment Orientation - [place] ed to time, place, person, situation. Patient Care Teams Name Effective Dates (start - stop) Status Members No Information
--- OUTSIDE RECORDS SUMMARY | 2024-06-20 12:25 | XMS_ITS | Referral Summary ---
Author Organization [facility] [address] [place] [address] Care Team Providers Care Jewelry Technician Name Role Phone Tracy Rodas MD Primary Care Provider [phone] Allergies Active Allergy Reactions Criticality Noted Date Comments Celecoxib Rash Medium 06/14/2017 rash Penicillins Anaphylaxis,Hives,It kalen,Rash,Shortness of breath,Urticaria High 04/07/2013 Passed PCN skin testing 10/03/16 Povidone-Iodine Itching,Other (See comments),Rash Medium 01/06/2015 Causes skin to peel if not washed off soon enough Sulfa (Sulfonamide Antibiotics) Itching,Rash Medium 07/27/2020 Tetracycline Stomach upset Low 09/07/2020 Medications albuterol HFA (PROVENTIL HFA,VENTOLIN HFA,PROAIR HFA) 90 mcg/actuation inhaler Inhale 2 puffs every 4 (four) hours as needed 1 Active budesonide-form oteroL (SYMBICORT) 160-4.5 mcg/actuation inhaler Inhale 2 puffs 2 (two) times a day 1 Active ergocalciferol (VITAMIN D) 50,000 unit capsule Take 1 capsule (50,000 Units total) by mouth every 2 (two) weeks 9 Active estradioL (ESTRACE) 0.01 % (0.1 mg/gram) vaginal cream Insert 0.5 g into the vagina 3 (three) times a week 6 Active famotidine (PEPCID) 40 mg tablet Take 1 tablet (40 mg total) by mouth 2 (two) times a day 0 Active ipratropium-alb uteroL (DUO-NEB) 0.5-2.5 mg/3 mL nebulizer solution Inhale 3 mL every 4 (four) hours as needed 1 Active losartan (COZAAR) 100 mg tablet Take 1 tablet (100 mg total) by mouth daily 6 Active nebivoloL (Bystolic) 10 mg tablet Active omeprazole (PriLOSEC) 20 mg capsule Take 1 capsule (20 mg total) by mouth every 48 hours 1 Active mometasone (NASONEX) 50 mcg/actuation nasal spray Administer 2 sprays into each nostril daily Active azelastine (ASTELIN) 137 mcg (0.1 %) nasal spray Administer 2 sprays into each nostril 2 (two) times a day Use in each nostril as directed Active albuterol 2.5 mg /3 mL (0.083 %) nebulizer solution Take 3 mL (2.5 mg total) by nebulization every 6 (six) hours as needed for wheezing Active triamcinolone (KENALOG) 0.1 % ointment Apply topically 2 (two) times a day Active cyanocobalamin (Vitamin B-12) 1,000 mcg tabletIndicatio ns:Prevention of Vitamin B12 Deficiency Take 1 tablet (1,000 mcg total) by mouth daily Active Active Problems Problem Noted Date Diagnosed Date Hoarseness 09/12/2022 Assessment & Plan (09/12/2022 10:20 AM CDT): I really was not able to get a great look at her vocal cords because of very severe gag reflex. She does have edema suggestive of reflux. I recommended a no further intervention. Laryngopharyngeal reflux 09/12/2022 Assessment & Plan (09/12/2022 10:19 AM CDT): I think she is having a slow recovery of her voice most likely due to ongoing reflux disease. She does watch her diet very well and I recommended that she continue to do so. I also told to increase her omeprazole to twice a day for the next month. If she continues to improve she can go back on the Pepcid in the evening and eliminate the evening dose of the omeprazole. If she continues with problems I have asked her to return. 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 Gender Identity Female 09/30/2020 11:24 AM CDT Sexual Orientation Straight 09/30/2020 11 :24 AM CDT Last Filed Vital Signs Vital Sign Reading Time Taken Comments Blood Pressure 165/82 09/06/2020 7:30 AM CDT Pulse 64 09/06/2020 7:30 AM CDT Temperature 36.7 ??C (98.1 ??F) 10/05/2020 1:48 PM CD T Respiratory Rate 18 09/12/2022 9:54 AM CDT Oxygen Saturation 98% 09/06/2020 7:30 AM CDT Inhaled Oxygen Concentration - - Weight 113.4 kg (250 lb) 09/12/2022 9:54 AM CDT Height 167.6 cm (5' 6 ) 09/12/2022 9:54 AM CDT Body Mass Index 40.35 09/12/2022 9:54 AM CDT Plan of Treatment Not on file Insurance [facility]IC[facility] Address: [address] [address] [place] [address] [place] [address] [employer] [id number] [place] [address] Advance Directives For more information, please contact: [phone] Documents on File Type Date Recorded Patient Community [facility] Nurse Expl anation ADVANCE DIRECTIVE 09/27/2020 12:00 AM DARREN R OF [employer] Care Teams Jewelry Technician Relationship Specialty Start Date End Date Tracy Rodas MD [address] [place] [address] PCP - General Internal Medicine 07/15/20
--- OUTSIDE RECORDS SUMMARY | 2024-06-20 12:25 | XMS_ITS | Encounter Summary ---
Author Organization [facility] Address [address] [facility] [place] [address] Care Team Providers Care Almond Paste Mixer Name Role Phone Tracy Rodas MD Primary Care Provider [phone] Chinedu Villalobos MD Unavailable Encounter Details Date Type Department Care Team (Late st Contact Info) Description 04/03/2015 Therapy Visit [facility] [id number] [address] [place] [id number] [address] Social History Tobacco Use Types [...] Office Visit [facility] - Allergy [address] [place] [address], [place] [address] Christiano Grey MD [address] [place] [address] DIV OF ALLERGY/[place] [address] documented as of this encounter Visit Diagnoses Not on filedocumented in this encounter Care Teams Almond Paste Mixer Relationship Specialty Start Date End Date Tracy Rodas MD PCP - General Internal Medicine 04/07/13 [place] [address] [facility] [address] [place] [address] Orthopedic Surgery 04/07/13 documented as of this encounter
--- OUTSIDE RECORDS SUMMARY | 2024-06-20 12:25 | XMS_ITS | Patient Health Summary ---
Author Organization [facility] Address [address] [place] [address] Care Team Providers Care Restuarant Crew Worker Name Role Phone Tracy Rodas MD Primary Care Provider [phone] Chinedu Villalobos MD Unavailable [phone] Note from [facility] [place],non-owned Affiliates and Associated Physician Practices is amultiple site organization consisting of ambulatory clinics and hospital sitesin [place], [place], [place] and [place]. This disclosure is being madepursuant to the Care Everywhere program and may not contain all information available regarding this patient. Last updated 18.[facility] Allergies * Ambrosia Artemisiifolia, Ragweed(Shortness of Breath,Rhinitis) -High Criticality * animal dander [Other](Shortness of Breath) -High Criticality * Povidone Iodine(Other) * Celecoxib(rash) * Nickel(Urticaria) -Medium Criticality * Penicillins(Anaphylaxis,Urticaria) -High Criticality * Sulfa Drugs(Rash) -Medium Criticality * Tetracycline(GI Discomfort) -Low Criticality * Meloxicam(Other),Inactive Medications * Be aware that medications may not be up to date on this document. Alwaysverify current medications with the patient. * Cyanocobalamin (VITAMIN B-12 PO) Take 1,000 mcg by mouth once daily * Emollient (CERAVE) CREA by Apply externally route once daily * losartan (COZAAR) 100 MG tablet(Started 02/21/2016) Take 1 (one) tablet by mouth once daily 1 refill left * estradiol (ESTRACE) 0.1 MG/GM vaginal cream(Started 11/05/2015) Insert 0.5 g into the vagina Three times a week * vitamin D, ergocalciferol, (DRISDOL) 57805 units capsule(Started 09/06/2018) Take 1 (one) capsule by mouth every 14 days 1 refill left * nebivolol (Bystolic) 10 MG tablet Take 1 (one) tablet by mouth once daily * ciprofloxacin (Cipro) 250 MG tablet Take 1 (one) tablet by mouth 2 times daily * azelastine (Astelin) 0.1 % nasal spray(Started 10/19/2023) [place] 2 (two) sprays into each nostril 2 times daily 3 refills by 10/18/2024 * albuterol HFA (Proventil; Ventolin; Proair) 108 (90 Base) MCG/ACT inhaler (Started 10/19/2023) Inh[place] 2 (two) puffs by mouth every 4 hours as needed for Wheezing 5 refills by 10/18/2024 * mometasone (Nasonex) 50 MCG/ACT nasal spray(Started 10/19/2023) [place] 1 (one) spray into each nostril 2 times daily 3 refills by 10/18/2024 * albuterol (Proventil;Ventolin) (2.5 MG/3ML) 0.083% nebulizer solution(Started 10/19/2023) Inhale 2.5 (two and one-half) mg by mouth every 4 hours as needed for Shortness of Breath 4 refills by 10/18/2024 * budesonide-formoterol (Symbicort) 160-4.5 MCG/ACT inhaler(Started 10/19/2023) Inhale 2 (two) puffs by mouth every 12 hours 11 refills by 10/18/2024 * esomeprazole (NexIUM) 40 MG capsule(Started 10/19/2023) Take 1 (one) capsule by mouth daily before breakfast 3 refills by 10/18/2024 Active Problems Problem Noted Date Diagnosed Date Moderate persistent asthma without complication 05/31/2020 Allergic rhinitis 05/31/2020 [place] 05/31/2020 Status post bilateral knee replacements 05/27/19 19 Iliotibial band syndrome of right side 6 History of total right knee replacement 05/17/20 15 Pes anserine bursitis 05/17/2015 Essential hypertension 04/07/2013 Asthma 04/07/2013 Osteoarthrosis involving lower leg 04/07/2013 Gastroesophageal reflux disease 08/29/2012 Immunizations * Covid Pfizer primary Monovalent 5-11yr 0.2ml(Given 02/14/2021) * Covid Pfizer primary monovalent 12+ yr 0.3mL Purple cap(Given 01/25/2022, 08/06/2020, 07/14/2020) * INFLUENZA VACCINE(Given 02/20/2022, 02/14/2021, 02/19/2019, 02/20/2018) * PNEUMOCOCCAL PCV7 CONJ, PEDS(Given 01/20/2020) Social History Tobacco Use Types Packs/Day Years [...] Mass Index 42.61 10/19/2023 11:26 AM CDT Medical Devices Implanted Type Area Electronic Gluing Machine Operator Device Identifier Shelf Expiration Date Model / Serial / Lot Graham Bone [place] Hv Implanted:Qty: 1 on 03/15/2015 by Chinedu Villalobos MD at [facility] Right: Knee [employer] 10/18/2016 [id number] / / [id number] Titanium Femoral Implant 67.5mm Right Implanted:Qty: 1 on 03/15/2015 by Chinedu Villalobos MD at [facility] Right: Knee [employer] 10/18/2024 [id number] / / [id number] Butn Pat Arcom Wire Polyeth Xsm 28 X 8 Implanted:Qty: 1 on 03/15/2015 by Chinedu Villalobos MD at [facility] Right: Knee [employer] 01/21/[id number] / / [id number] Stem Fem Maxim I-Beam Prim 40mm Implanted:Qty: 1 on 03/15/2015 by Chinedu Villalobos MD at [facility] Right: Knee [employer] 02/17/2025 [id number] / / [id number] Ty Tibial Prim Intlok 71mm Implanted:Qty: 1 on 03/15/2015 by Chinedu Villalobos MD at [facility] Right: Knee [employer] 10/14/2024 [id number] / / [id number] Brdg Tib Gayatri Stbl Implanted:Qty: 1 on 03/15/2015 by Chinedu Villalobos MD at [facility] Right: Knee [employer] 12/25/2019 [id number] / / [id number] Cmpnt Ptlr 28mm 1 Pg Wire Ascnt Arcm Kn Implanted:Qty: 1 on 05/24/2017 by Chinedu Villalobos MD at [facility] Left: Knee Deric [employer] 04/23/[id number] / / [id number] Metal Alternative Cr Femoral 65mm Implanted:Qty: 1 on 05/24/2017 by Chinedu Villalobos MD at [facility] Left: Knee [employer] 01/22/2027 [id number] / / [id number] Brng [id number] Vngrd Arcm Kn Ant Stab Implanted:Qty: 1 on 05/24/2017 by Chinedu Villalobos MD at [facility] Left: Knee Deric [employer] 04/23/2022 [id number] / / [id number] Cmnt Bone Cblt 40gm Hvisc Strl Implanted:Qty: 1 on 05/24/2017 by Chinedu Villalobos MD at [facility] Left: Knee [employer] 09/21/2018 [id number] / / [id number] Stem Tib 40mm As Mx Kn Prm I Beam Implanted:Qty: 1 on 05/24/2017 by Chinedu Villalobos MD at [facility] Left: Knee Deric [employer] 11/21/2026 [id number] / / [id number] Tray Tib 71mm As Mx Kn Intlk Ti Cr Prm Implanted:Qty: 1 on 05/24/2017 by Chinedu Villalobos MD at [facility] Left: Knee [employer]eric [employer] 03/24/2027 [id number] / / [id number] Procedures * XR KNEE BILAT 3VW(Performed 05/03/2021) Performed for Status post bilateral knee replacements * PFT(Performed 11/05/2018) * XR KNEE BILAT 3VW(Performed 05/27/2018) Performed for Status post bilateral knee replacements * XR KNEE LEFT 3VW(Performed 07/05/2017) Performed for Osteoarthrosis involving lower leg * LAB RESULTS ORDER(Performed 05/29/2017) * CARDIAC EKG ORDER(Performed 05/29/2017) * HGB HCT PANEL(Performed 05/26/2017) * HGB HCT PANEL(Performed 05/25/2017) * NEURAXIAL BLOCK(Performed 05/24/2017) * ARTHROPLASTY TOTAL KNEE(Performed 05/24/2017) * XR KNEE RIGHT 3VW(Performed 03/13/2016) Performed for Primary osteoarthritis of right knee * XR KNEE LEFT 3VW(Performed 09/13/2015) Performed for Arthritis of left knee * XR KNEE RIGHT 3VW(Performed 04/26/2015) Performed for Primary osteoarthritis of right knee * HGB HCT PANEL(Performed 03/17/2015) * HGB HCT PANEL(Performed 03/16/2015) * ARTHROPLASTY TOTAL KNEE(Performed 03/15/2015) Performed for Osteoarthrosis, unspecified whether generalized or localized, lower leg * NEURAXIAL BLOCK(Performed 03/15/2015) * CBC W AUTO DIFFERENTIAL(Performed 02/19/2015) Performed for Preoperative examination * COMPREHENSIVE METABOLIC PANEL(Performed 02/19/2015) Performed for Preoperative examination * CULTURE MSSA/MRSA(Performed 02/19/2015) Performed for Preoperative examination * EKG 12-LEAD(Performed 02/19/2015) Performed for Preoperative examination * CBC W AUTO DIFFERENTIAL(Performed 08/29/2012) Results * XR KNEE BILAT 3VW (05/03/2021 2:10 PM STENOTYPIST) Only the most recent of2 resultswithin the time period is included. Anatomical Region Laterality Modality Lower Extremity Computed Radiogr aphy Narrative 05/03/2021 2:12 PM STENOTYPIST Janice Krishnan, RT(R) ? 05/11/2021 ??5:10 PM See progress notes for results Sarah Ram PA-C DIAGNOSTIC IM AGING ORDERABLES * PFT (11/05/2018 2:59 PM CDT) Narrative 11/05/2018 2:59 PM CDT Ordered by an unspecified provider. Scanned Document SCANNING ONLY * XR KNEE 3 VW LEFT (07/05/2017 4:10 PM STENOTYPIST) Only the most recent of2 resultswithin the time period is included. Anatomical Region Laterality Modality Lower Extremity Computed Radiogr aphy Narrative 07/06/2017 9:00 AM STENOTYPIST Virgen Betancourt, RT(R) ? 07/06/2017 ??9:00 AM See Chart For Xray Report Sarah Ram PA-C DIAGNOSTIC IM AGING ORDERABLES * LAB RESULTS ORDER (05/29/2017 6:03 PM STENOTYPIST) Narrative 05/29/2017 6:03 PM STENOTYPIST Ordered by an unspecified provider. Scanned Document LAB - THERAPEUTIC DR UG MONITORING ORDERABLES * CARDIAC EKG ORDER (05/29/2017 6:03 PM STENOTYPIST) Narrative 05/29/2017 6:03 PM STENOTYPIST Ordered by an unspecified provider. Scanned Document CARDIAC SERVICES ORD ERABLES * (ABNORMAL) HGB HCT PANEL (05/26/2017 5:13 AM STENOTYPIST) Only the most recent of4 resultswithin the time period is included. Hemoglobin 10.7(L) 12.0 - 15.6 gm/dL 05/26/2017 5:48 AM STENOTYPIST [facility] Hematocrit 32.2(L) 35.9 - 45.5 % 05/26/2017 5:48 AM STENOTYPIST [facility] Blood BLOOD SPECIMEN / Unknown Venipuncture / Unknown 05/26/2017 5:13 AM STENOTYPIST 05/26/2017 5:33 AM STENOTYPIST Chinedu Villalobos MD LAB - HEMATOLOGY ORD ERABLES [facility] [address] [place] [address] * XR KNEE 3 VW RIGHT (03/13/2016 2:27 PM CDT) Only the most recent of2 resultswithin the time period is included. Anatomical Region Laterality Modality Lower Extremity Radiographic Rose ging Narrative 03/13/2016 4:28 PM CDT Virgen Betancourt, RT(R) ? 03/13/2016 ??4:28 PM See Chart For Xray Report Chinedu Villalobos MD DIAGNOSTIC IMAGING O RDERABLES * NEURAXIAL BLOCK (03/15/2015 9:46 AM CDT) Narrative Juaquin Mayorga APRN-BALLAST INSPECTOR - 03/15/2015 9:46 AM CDT Juaquin Mayorga APRN-CRNA ? 03/15/2015 ??9:46 AM NEURAXIAL BLOCK Patient Location: ??OR Pre Procedure Indication: ??at patient's request and surgical anesthesia Anticoagulation /Antithrombosis Status Confirmed: Yes Preanesthetic Checklist: ??patient identified, IV checked, site marked, risks and benefits discussed, surgical consent verified, monitors and equipment checked, pre-op evaluation done, informed consent obtained and questions answered / anesthesia plan accepted Monitors: ??Pulse Ox Patient Condition: ??sedated, meaningful contact maintained throughout procedure Patient Position: ??sitting Procedure Block Performed: ??spinal Prep: ??Chloraprep Sterile Field: ??sterile gloves, sterile field established, cap/hat and mask Approach: ??midline Spinal Needle Type: ??pencil-point Needle Gauge: ??25 G Needle Length: ??3.5 in Placement Site: ??L3-4 Number of Attempts: ??1 Degree of Difficulty: ??none Block Performed by: ??kk Juaquin Mayorga TELEPHONE OPERATOR RECEPTIONIST-BALLAST INSPECTOR GENERAL ANESTH ESIA ORDERABLES * CULTURE MSSA/MRSA (02/19/2015 11:39 AM CDT) Culture Negative for MRSA/MSSA WILFREDO 02/20/2015 1:59 PM CDT [facility] MICROBIOLOGY Microbiology SPECIMEN FROM NASAL FOSSAE / Unknown 02/19/2015 11:39 AM CDT 02/19/2015 11:48 AM CDT Chinedu Villalobos MD LAB - MICROBIOLOGY O RDERABLES [facility] MICROBIOLOG[facility] [address] [place] [phone] * CBC W AUTO DIFFERENTIAL (02/19/2015 11:39 AM CDT) Only the most recent of2 resultswithin the time period is included. WBC 9.6 4.4 - 10.7 x10^9/L 02/19/2015 11:52 AM CDT [facility] WBC Corrected x10^9/L 02/19/2015 11:52 AM CDT [facility] RBC 4.80 3.80 - 5.20 x10^12/L 02/19/2015 11:52 AM CDT [facility] Hemoglobin 13.0 12.0 - 15.6 gm/dL 02/19/2015 11:52 AM CDT [facility] Hematocrit 38.9 35.9 - 45.5 % 02/19/2015 11:52 AM CDT [facility] MCV 81.0 80.7 - 98.3 fl 02/19/2015 11:52 AM CDT [facility] MCH 27.1 26.7 - 34.0 pg 02/19/2015 11:52 AM CDT [facility] MCHC 33.4 30.8 - 35.9 gm/dL 02/19/2015 11:52 AM CDT [facility] Platelet Count 281 153 - 416 x10^9/L 02/19/2015 11:52 AM CDT [facility] RDW-CV 13.7 12.1 - 14.9 % 02/19/2015 11:52 AM CDT [facility] MPV 10.1 9.4 - 12.9 fl 02/19/2015 11:52 AM CDT [facility] Neutrophils % 61.8 44.0 - 73.0 % 02/19/2015 11:52 AM CDT [facility] Lymphocytes % 28.0 20.0 - 43.0 % 02/19/2015 11:52 AM CDT [facility] Monocytes % 8.1 5.0 - 13.0 % 02/19/2015 11:52 AM CDT [facility] Eosinophils % 1.7 0.0 - 6.0 % 02/19/2015 11:52 AM CDT [facility] Basophils % 0.3 0.0 - 2.0 % 02/19/2015 11:52 AM CDT [facility] Immature Granulocytes 0.1 0 - 1 % 02/19/2015 11:52 AM CDT [facility] Neutrophil Absolute 5.93 2.01 - 7.14 x10^9/L 02/19/2015 11:52 AM CDT [facility] Lymphocytes Absolute 2.69 1.07 - 3.94 x10^9/L 02/19/2015 11:52 AM CDT [facility] Monocytes Absolute 0.78 0.26 - 1.07 x10^9/L 02/19/2015 11:52 AM CDT [facility] Eosinophils Absolute 0.16 0 - 0.47 x10^9/L 02/19/2015 11:52 AM CDT [facility] Basophils Absolute 0.03 0 - 0.08 x10^9/L 02/19/2015 11:52 AM CDT [facility] Immature Granulocytes Absolute 0.01 0.00 - 0.06 x10^9/L 02/19/2015 11:52 AM CDT [facility] nRBC Auto 0 /100 WBC 02/19/2015 11:52 AM CDT [facility] Blood BLOOD SPECIMEN / Unknown 02/19/2015 11:39 AM CDT 02/19/2015 11:48 AM CDT Chinedu Villalobos MD LAB - HEMATOLOGY ORD ERABLES [facility] [address] [place] [address] * (ABNORMAL) COMPREHENSIVE METABOLIC PANEL (02/19/2015 11:39 AM CDT) Glucose 99 74 - 106 mg/dL 02/19/2015 12:10 PM CDT [facility] Sodium 138 136 - 145 mmol/L 02/19/2015 12:10 PM CDT [facility] Potassium 3.4(L) 3.5 - 5.1 mmol/L 02/19/2015 12:10 PM CDT [facility] Chloride 103 98 - 107 mmol/L 02/19/2015 12:10 PM CDT [facility] CO2 26 22 - 31 mmol/L 02/19/2015 12:10 PM CDT [facility] Calcium 9.5 8.5 - 10.1 mg/dL 02/19/2015 12:10 PM CDT [facility] Anion Gap 9 5 - 20 mmol/L 02/19/2015 12:10 PM CDT [facility] BUN 17 7 - 21 mg/dL 02/19/2015 12:10 PM CDT [facility] Creatinine 1.10 0.50 - 1.30 mg/dL 02/19/2015 12:10 PM CDT [facility] Alkaline Phosphatase 80 38 - 126 U/L 02/19/2015 12:10 PM CDT [facility] ALT 33 12 - 78 U/L 02/19/2015 12:10 PM CDT [facility] AST 17 5 - 40 U/L 02/19/2015 12:10 PM CDT [facility] Protein Total 7.5 6.4 - 8.2 gm/dL 02/19/2015 12:10 PM CDT [facility] Albumin 4.0 3.4 - 5.0 gm/dL 02/19/2015 12:10 PM CDT [facility] Bilirubin Total 0.6 0.2 - 1.0 mg/dL 02/19/2015 12:10 PM CDT [facility] eGFR by MDRD 51(L) >60 mL/min/1.7 3m2 02/19/2015 12:10 PM CDT [facility] eGFR by MDRD >60 >60 mL/min/1.7 3m2 02/19/2015 12:10 PM CDT [facility] Blood BLOOD SPECIMEN / Unknown 02/19/2015 11:39 AM CDT 02/19/2015 11:48 AM CDT Chinedu Villalobos MD LAB - CHEMISTRY ANGIE DOS SANTOS Performing Organization Address City/[facility] Co de Phone Number [facility] [address] [place] [address] * EKG 12-LEAD (02/19/2015 11:26 AM CDT) Ventricular Rate 73 BPM [facility] Atrial Rate 73 BPM [facility] P-R Interval 196 ms [facility] QRS Duration ms 86 ms [facility] Q-T Interval ms 386 ms [facility] QTC Calculation (Bezet) 425 ms [facility] Calculated P [place] 38 degrees [facility] Calculated R [place] -11 degrees [facility] Calculated T [place] 4 degrees [facility] Interpretation EKG Normal sinus rhythm Inferior infarct , age undetermined Possible Anterior infarct , age undetermined Abnormal ECG No previous ECGs available Confirmed by BALBIR EDDY MD ([id number]) on 02/20/2015 11:31:07 PM [facility] 02/19/2015 11:2 6 AM CDT 02/20/2015 11:31 PM CDT Chinedu Villalobos MD ECG ORDERABLES Performing Organization Address City/[facility] Co de Phone Number [facility] Care Teams Restuarant Crew Worker Relationship Specialty Start Date End Date Tracy Rodas MD PCP - General Internal Medicine 04/07/13 [place] [address] [facility] [address] [place] [address] Orthopedic Surgery 04/07/13
--- OUTSIDE RECORDS SUMMARY | 2024-06-20 12:25 | XMS_ITS | Clinical Summary ---
Author Organization [place] [address] [address] Address [address] [place], [place] [address] [address] Care Team Providers Care Psychological Operations Officer Name Role Phone Tracy Rodas MD Primary Care Provider [phone] Allergies Active Allergy Reactions Criticality Noted Date [...] SARS-CoV-2 Monovalent Vaccination (12+ Yrs) PURPLE 07/14/2020 Surgical History Surgery Date Site/Laterality Comments HYSTERECTOMY REPLACEMENT TOTAL KNEE SECTION SINUS SURGERY Medical History Medical History Date Comments Allergic rhinitis Asthma Anxiety Hypertension GERD (gastroesophageal reflux disease) Sinusitis Hoarseness Laryngitis Family History Medical History Relation Name Comments Diabetes Father Hypertension Father Hypertension Mother Relation Name Status Comments Father Mother Social History Tobacco Use Types Packs/Day Years Used Date Smoking Tobacco: Never Smokeless Tobacco: Never Personal Safety Answer Date Recorded Getting School Help Needed Not on file 05/20 Comments Unknown Sex and Gender Information Value Date Recorded Sex Assigned at Not on file Legal Sex Female 12:41 AM EXHIBITS MANAGER Gender Identity Female 09/30/2020 11:24 AM CDT Sexual Orientation Straight 09/30/2020 11 :24 AM CDT Obstetrics History Last Filed Vital Signs Vital Sign Reading [...] 09/12/2022 9:54 AM CDT Plan of Treatment Health Maintenance Due Date Last Done Comments Breast Cancer Screening-Mammogram 1955 Colon Cancer Screening-Colonoscopy 1955 Depression Screening 1957 Fall Risk Assessment 1955 Hepatitis C Screening 1957 Osteoporosis Screening-Bone Density Scan 1955 Hepatitis B Screening 08/29/1975 Well Visit 65+ 2022 Covid-19 Vaccine (4 - 2023-2 5 season) 2024 01/25/2022, 08/06/2020, 07/14/2020 Pneumococcal vaccine 65+ (3 of 3 - PPSV23 or PCV20) 01/27/2025 01/28/2020, 01/20/2020, 02/23/2014 DTaP/Tdap/Td Vaccine (2 - Td or Tdap) 08/22/2028 08/22/2018 Zoster Vaccine Completed 10/23/2018, 08/22/2018 Influenza Vaccine Completed 02/22/2024, , 02/14/2021, Additional [place] [address] MEDICARE [facility] MED[facility] Address: [address] [address] [employer] [place] [id number] Advance Directives For more information, please contact: [phone] Documents on File Type Date Recorded Patient Lineworker Expl anation ADVANCE DIRECTIVE 09/27/2020 12:00 AM DARREN R OF SENIOR STORAGE ADMINISTRATOR FINANCIAL/MEDICAL Care Teams Psychological Operations Officer Relationship Specialty Start Date End Date Tracy Rodas MD [address] [place] [address] PCP - General Internal Medicine 07/15/20
--- OUTSIDE RECORDS SUMMARY | 2024-06-20 12:25 | XMS_ITS | Encounter Summary ---
Author Organization [facility] Address [address] [facility] [place] [address] Care Team Providers Care Underwater Hunter Name Role Phone Tracy Rodas MD Primary Care Provider Chinedu Villalobos MD Unavailable [phone] Encounter Details Date Type Department Care Team (Late st Contact Info) Description 07/22/2020 Telephone [facility] [address] [place] [address] Livan Eckert MD [address] [facility] [address] [place] [address] Social History Tobacco Use Types Packs/Day Years Used Date Smoking Tobacco: Never Smokeless Tobacco: Never Alcohol Use Standard Drinks/Week Comments [...] person have difficulty concentrating/remembering/making decisions? No 05/24/2017 documented as of this encounter Miscellaneous Notes * Telephone Encounter - Delores Alexander - 07/22/2020 2:24 PM CST Current Provider name: Dr. Julio Cesar Eckert (Matilda( Reason for call: Ms. Delores Melchor is calling in to schedule her 6 mnth appt. She's called in before and apparently schedulers were looking at avails for PHILIPP. Her last 2 appts were VID w/ Matilda. Philipp's calendar is not there. My notes say he should have avails ,September, October. Ms. Melchor6 mnth appt will be November. She wants to come in but there is no template to make sure her PFT is done. WHat's Roselynpratima' Status going to be. Patient Call Back number: [phone] IC TANK CLEANER documented in this encounter Plan of Treatment Upcoming Encounters Date Type Department Care Team (Late st Contact Info) Description 10/17/2024 12:00 PM CDT Office Visit [facility] - Allergy [address] [place] [address], [place] [id number] Christiano Grey MD [address] [place] [address] DIV OF ALLERGY/[place] [address] documented as of this encounter Visit Diagnoses Not on filedocumented in this encounter Care Teams Underwater Hunter Relationship Specialty Start Date End Date Tracy Rodas MD PCP - General Internal Medicine 04/07/13 [place] [id number] [address] Orthopedic Surgery 04/07/13 documented as of this encounter
--- OUTSIDE RECORDS SUMMARY | 2024-06-20 12:25 | XMS_ITS | Clinical Summary ---
Author Organization [facility] Address [address] [place] [address]. [place] [address] [place] [address] Care Team Providers Care Gas Mask Assembler Name Role Phone Unavailable Primary Care Provider Unavailabl e Social History Tobacco Use Types Packs/Day Years Used Date Smoking Tobacco: Never Assessed Comments Unknown Sex and Gender Information Value Date Recorded Sex Assigned at Not on file Legal Sex Female 7:17 PM CDT Gender Identity Not on file Sexual Orientation Not on file Plan of Treatment Health Maintenance Due Date Last Done Comments Colorectal Cancer Screening Colonoscopy (10 Years) 1957 Hepatitis C 08/29/1975 DTaP, Tdap and Td Vaccines ( 1 - Tdap) 1976 Mammogram Screening 1997 Zoster Vaccines (1 of 2) 08/29/2007 Dexa Scan (General) 2022 Pneumococcal Vaccine: 65+ Ye ars (1 of 1 - PCV) 2022 COVID-19 Vaccine ( - 2023-2 5 season) 2024 Influenza Adult (#1) 2024 RSV Immunization or 60+ Years (1 - 1-dose 75+ series) 2032 Meningococcal B Vaccine Aged Out No l onger eligible based on patient's age to complete this topic Meningococcal Vaccine Aged Out No ran lidia eligible based on patient's age to complete this topic RSV Immunizations Under 20 Months Aged Out No longer eligible based on patient's age to complete this topic
== END 2024-06-20 12:22 | disposition home or self-care (01) ==
PROVIDERS: PCP Internal Medicine; Visit Provider Internal Medicine
DX: R22.2 Localized swelling, mass and lump, trunk (principal)
CPT/HCPCS: 76705

== ENCOUNTER 2024-07-10 09:45 | Outpatient (CLI) | payer MEDICARE, SELFPAY ==
--- OUTSIDE RECORDS SUMMARY | 2024-07-10 10:02 | XMS_ITS | Clinical Summary ---
Author Organization [facility] Address [address] [place] [id number] Care Team Providers Care Certification And Selection Specialist Name Role Phone Unavailable Primary Care Provider [...] of 1 - PCV) 2022 COVID-19 Vaccine (2023-2 5 season) 2024 Influenza Adult (#1) 2024 [...]
--- OUTSIDE RECORDS SUMMARY | 2024-07-10 10:02 | XMS_ITS | Continuity of Care Document ---
Author Organization [employer] [facility] Address [address] [place] [address] Phone Care Team Providers Care Woodworking Bench Carpenter Name Role Phone Unavailable Unavailable Unavailable Allergies, Adverse Reactions, Alerts Substance Reaction Status Criticality Sulfa (Sulfonamide Antibiotics) Active No Information Penicillins Active No Information celecoxib Active No Information Medications Medication Instructions Dosage Effective Dates (start - stop) Status Comments Flovent HFA 110 mcg/actuation aerosol inhaler inhale 1 puff by inhalation route 2 times every day - Active Nasonex 50 mcg/actuation [place] spray 2 spray by intranasal route every [...] Copied on Encounter Offic/outpt E&m New Low-mod [facility], [address], [place], [place], [id number], [place] tel:[phone] [facility] asthma (chief complaint) Mild intermittent asthma with acute exacerbation 9 No Information Family History Family Member Type Diagnosis Age At Onset No Information Payers Payer name Insurance type Covered democrat ID Neal manning(s) [facility] [id number] Social History Type Description Quantity Date Captured [...] Of Treatment Date Type Action Status Goal Health Promotion Plan. Due o n due Goal Lipid panel. Due on 019 due Goal Mammogram. Due on 9 due Goal Colonoscopy. Due on due Goal Pap/HPV testing. Due on due Goal Depression Screening. Due on due Goal Zoster vaccine. Due on due Goal Flu-Quad 3 yrs and older. Du e on due Goal Tdap. Due on due Goal FIT Occult Blood, Fecal, [place]. Due on due Goal Td vaccine. Due on 19 due Goal SBIRT. Due on du e History Of Present Illness Encounter Date Complaint [...] Date assessment Mild intermittent asthma with ac sw[place]om[place] exacerbation Mental Status Date Cognitive Assessment Orientation - [place] ed to time, place, person, situation. Patient Care Teams Name Effective Dates (start - stop) Status Members No Information
--- OUTSIDE RECORDS SUMMARY | 2024-07-10 10:02 | XMS_ITS | Encounter Summary ---
Author Organization [facility] Address [address] [place] [address] Care Team Providers Care Clinical Tech Name Role Phone Tracy Rodas MD Primary Care Provider [phone] Chinedu Villalobos MD Unavailable Encounter Details Date Type Department Care Team (Late st Contact Info) Description 04/03/2015 Therapy Visit [facility] Orthopedics [address] [address] [place] [address] [address] Social History Tobacco Use Types [...] Office Visit [facility] [address] [place] [address], [place] [address] Christiano Grey MD [address] [place] [address] DIV OF ALLERGY/[place] [address] documented as of this encounter Visit Diagnoses Not on filedocumented in this encounter Care Teams Clinical Tech Relationship Specialty Start Date End Date Tracy Rodas MD PCP - General Internal Medicine 04/07/13 [place] [address] [facility] [address] [place] [address] Orthopedic Surgery 04/07/13 documented as of this encounter
--- OUTSIDE RECORDS SUMMARY | 2024-07-10 10:02 | XMS_ITS | Encounter Summary ---
Author Organization [facility] Address [address] [facility] [place] [address] Care Team Providers Care Numerical Control Programmer Name Role Phone Tracy Rodas MD Primary Care Provider [phone] Chinedu Villalobos MD Unavailable Encounter Details Date Type Department Care Team (Late st Contact Info) Description 06/15/[address] [facility] Orthopedics [address] [address] [place] [address] [address] Social History Tobacco Use Types [...] Office Visit [facility] [address] [place] [address], [place] [address] Christiano Grey MD [address] [place] [address] DIV OF ALLERGY/[place] [address] documented as of this encounter Visit Diagnoses Not on filedocumented in this encounter Care Teams Numerical Control Programmer Relationship Specialty Start Date End Date Tracy Rodas MD PCP - General Internal Medicine 04/07/13 [place] [address] [facility] [address] [place] [address] Orthopedic Surgery 04/07/13 documented as of this encounter
--- OUTSIDE RECORDS SUMMARY | 2024-07-10 10:02 | XMS_ITS | Referral Summary ---
Author Organization [facility] Address [address] [facility] [place] [address] Care Team Providers Care Maintenance Mechanic Supervisor Name Role Phone Tracy Rodas MD Primary Care Provider [phone] Chinedu Villalobos MD Unavailable [phone] [facility],non-owned Affiliates and Associated Physician Practices is amultiple site organization consisting of ambulatory clinics and hospital sitesin [place], [place], [place] and [place]. This disclosure is being madepursuant to the Care Everywhere program and may not contain all information available regarding this patient. Last updated 18.[facility] Encounters Date Type Department Care Team Description 07/06/2024 Refill [facility] [address] [facility] [place] [address] Carol Freedman MD Refill Request 06/24/2024 Refill [facility] [address] [facility], [place] [address] Carol Freedman MD Refill Request from Last 3 Months Allergies Active Allergy Reactions Criticality Noted Date [...] week 11/05/2015 Active vitamin D, ergocalciferol, (DRISDOL) 97263 units capsule Take 1 (one) capsule by mouth every 14 days 1 09/06/2018 Active nebivolol (Bystolic) 10 MG tablet Take 1 (one) tablet by mouth once daily Active ciprofloxacin (Cipro) 250 MG tablet Take 1 (one) tablet by mouth 2 times daily Active albuterol HFA (Proventil; Ventolin; Proair) 108 (90 Base) MCG/ACT inhalerIndication s:Moderate persistent asthma without complication (HCC) Inhale 2 (two) puffs by mouth every 4 hours as needed for Wheezing 18 g 5 10/19/2023 Active albuterol (Proventil;Ventol in) (2.5 MG/3ML) 0.083% nebulizer solutionIndicatio ns:Moderate persistent asthma without complication (HCC) Inhale 2.5 (two and one-half) mg by mouth every 4 hours as needed for Shortness of Breath 75 mL 4 10/19/2023 Active budesonide-formot yovani (Symbicort) 160-4.5 MCG/ACT inhalerIndication s:Moderate persistent asthma without complication (HCC) Inhale 2 (two) puffs by mouth every 12 hours 30.6 g 11 10/19/2023 Active esomeprazole (NexIUM) 40 MG capsuleIndication s:Gastroesophagea l reflux disease, unspecified whether esophagitis present Take 1 (one) capsule by mouth daily before breakfast 90 capsule 3 10/19/2023 Active mometasone (Nasonex) 50 MCG/ACT nasal sprayIndications: Seasonal allergic rhinitis due to pollen INSTILL 1 SPRAY INTO EACH NOSTRIL TWICE A DAY 17 g 3 06/24/2024 Active Azelastine HCl 137 MCG/SPRAY SOLNIndications:S easonal allergic rhinitis due to pollen SPRAY 2 (TWO) SPRAYS INTO EACH NOSTRIL 2 TIMES DAILY 30 mL 5 07/07/2024 Active azelastine (Astelin) 0.1 % nasal sprayIndications: Seasonal allergic rhinitis due to pollen [place] 2 (two) sprays into each nostril 2 times daily 90 mL 3 10/19/2023 5 Discontinued mometasone (Nasonex) 50 MCG/ACT nasal sprayIndications: Seasonal allergic rhinitis due to pollen [place] 1 (one) spray into each nostril 2 times daily 51 g 3 10/19/2023 5 Discontinued Active Problems Problem Noted Date Diagnosed Date [...] 57 10/19/2023 11:26 AM CDT Temperature 37 C (98.6 F) 10/19/2023 11:26 AM CDT Respiratory Rate 18 [...] Office Visit [facility] [address] [place] [address], [place] [address] Christiano Grey MD [address] [place] [address] DIV OF ALLERGY/[place] [address] Medical Devices Implanted Type Area Asset Protection Greeter Device Identifier Shelf Expiration Date Model / Serial / Lot Graham Bone [place] Hv Implanted:Qty: 1 on 03/15/2015 by Chinedu Villalobos MD at [facility] Right: Knee [employer] 10/18/2016 [id number] / / [id number] Titanium Femoral Implant 67.5mm Right Implanted:Qty: 1 on 03/15/2015 by Chinedu Villalobos MD at [facility] Right: Knee [employer] 10/18/2024 [id number] / / [id number] Butn Pat Arcom Wire Polyeth Xsm 28 X 8 Implanted:Qty: 1 on 03/15/2015 by Chinedu Villalobos MD at [facility] Right: Knee [employer] 01/21/[id number] / / [id number] Stem Fem Maxim I-Beam Prim 40mm Implanted:Qty: 1 on 03/15/2015 by Chinedu Villalobos MD at [facility] Right: Knee [employer] 02/17/2025 [id number] / / [id number] Ty Tibial Prim Intlok 71mm Implanted:Qty: 1 on 03/15/2015 by Chinedu Villalobos MD at [facility] Right: Knee [employer] 10/14/2024 [id number] / / [id number] Brdg Tib Gayatri Stbl Implanted:Qty: 1 on 03/15/2015 by Chinedu Villalobos MD at [facility] Right: Knee [employer] 12/25/2019 [id number] / / [id number] Cmpnt Ptlr 28mm 1 Pg Wire Ascnt Arcm Kn Implanted:Qty: 1 on 05/24/2017 by Chinedu Villalobos MD at [facility] Left: Knee Deric [employer] 04/23/[id number] / / [id number] Metal Alternative Cr Femoral 65mm Implanted:Qty: 1 on 05/24/2017 by Chinedu Villalobos MD at [facility] Left: Knee [employer] 01/22/2027 [id number] / / [id number] Brng [id number] Vngrd Arcm Kn Ant Stab Implanted:Qty: 1 on 05/24/2017 by Chinedu Villalobos MD at [facility] Left: Knee [employer] 04/23/2022 [id number] / / [id number] Cmnt Bone Cblt 40gm Hvisc Strl Implanted:Qty: 1 on 05/24/2017 by Chinedu Villalobos MD at [facility] Left: Knee [employer] 09/21/2018 [id number] / / [id number] Stem Tib 40mm As Mx Kn Prm I Beam Implanted:Qty: 1 on 05/24/2017 by Chinedu Villalobos MD at [facility] Left: Knee [employer] 11/21/2026 [id number] / / [id number] Tray Tib 71mm As Mx Kn Intlk Ti Cr Prm Implanted:Qty: 1 on 05/24/2017 by Chinedu Villalobos MD at [facility] Left: Knee [employer] 03/24/2027 [id number] / / [id number] Procedures Procedure Name Priority Date/Time Associated Diagnosis [...] - 107 mmol/L 02/19/2015 12:10 PM CDT [facility] CO2 26 22 - 31 mmol/L 02/19/2015 12:10 PM CDT [facility] Calcium 9.5 8.5 - 10.1 mg/dL 02/19/2015 12:10 PM CDT [facility] Anion Gap 9 5 - 20 mmol/L 02/19/2015 12:10 PM CDT [facility] BUN 17 7 - 21 mg/dL 02/19/2015 12:10 PM CDT [facility] Creatinine 1.10 0.50 - 1.30 mg/dL 02/19/2015 12:10 PM CDT [facility] Alkaline Phosphatase 80 38 - 126 U/L 02/19/2015 12:10 PM CDT [facility] ALT 33 12 - 78 U/L 02/19/2015 12:10 PM CDT [facility] AST 17 5 - 40 U/L 02/19/2015 12:10 PM CDT [facility] Protein Total 7.5 6.4 - 8.2 gm/dL 02/19/2015 12:10 PM CDT [facility] Albumin 4.0 3.4 - 5.0 gm/dL 02/19/2015 12:10 PM CDT [facility] Bilirubin Total 0.6 0.2 - 1.0 mg/dL 02/19/2015 12:10 PM CDT [facility] eGFR by MDRD 51(L) >60 mL/min/1.7 3m2 02/19/2015 12:10 PM CDT [facility] eGFR by MDRD >60 >60 mL/min/1.7 3m2 02/19/2015 12:10 PM CDT [facility] Blood BLOOD SPECIMEN / Unknown 02/19/2015 11:39 AM CDT 02/19/2015 11:48 AM CDT Chinedu Villalobos MD LAB - CHEMISTRY ANGIE DOS SANTOS [facility] Organization Address City/State/ZIP Co de Phone Number [facility] [address] [place] [phone] from Last 3 Months or Most Recently Relevant to Health Maintenance Administered Medications Advance Directives Documents on File Type Date Recorded Patient Stripper Shovel Operator Expl anation Adv Directive/Living Will/POA 03/22/2015 3:11 PM * Full Code (Latest Code Status on File) Date Activated Date Inactivated Comments 05/24/2017 10:30 AM 05/26/2017 4:09 PM * Full Code Date Activated Date Inactivated Comments 03/15/2015 12:14 PM 03/18/2015 1:10 PM Care Teams Maintenance Mechanic Supervisor Relationship Specialty Start Date End Date Tracy Rodas MD PCP - General Internal Medicine 04/07/13 [place] [address] [address] Orthopedic Surgery 04/07/13
--- OUTSIDE RECORDS SUMMARY | 2024-07-10 10:02 | XMS_ITS | Referral Summary ---
Author Organization [place] [address] [place] Address [address] [place] [address] Care Team Providers Care Office Helper Name Role Phone Tracy Rodas MD Primary Care Provider [phone] Allergies Active Allergy Reactions Criticality Noted Date [...] return. Chronic infection of sinus 07/15/2010 Immunizations Immunization Administration Dates Next Due Pfizer SARS-CoV-2 Monovalent Vaccination (12+ Yrs) PURPLE 07/14/2020 Social History Tobacco Use Types Packs/Day Years Used Date Smoking Tobacco: Never Smokeless Tobacco: Never Personal Safety Answer Date Recorded Getting School Help Needed Not on file 05/20 Comments Unknown Sex and Gender Information Value Date Recorded Sex Assigned at Not on file Legal Sex Female 12:41 AM WOOD CHOPPER Gender Identity Female 09/30/2020 11:24 AM CDT Sexual Orientation Straight 09/30/2020 11 :24 AM CDT Last Filed Vital Signs Vital Sign Reading Time Taken Comments Blood Pressure 165/82 09/06/2020 7:30 AM CDT Pulse 64 09/06/2020 7:30 AM CDT Temperature 36.7 C (98.1 F) 10/05/2020 1:48 PM CDT Respiratory Rate 18 09/12/2022 9:54 AM CDT Oxygen Saturation 98% 09/06/2020 7:30 AM CDT Inhaled Oxygen Concentration - - Weight 113.4 kg (250 lb) 09/12/2022 9:54 AM CDT Height 167.6 cm (5' 6 ) 09/12/2022 9:54 AM CDT Body Mass Index 40.35 09/12/2022 9:54 AM CDT Plan of Treatment Not on file Insurance MEDICARE SOLUTIONS [employer] SIG [id number] [place] [address] Advance Directives For more information, please contact: [phone] Documents on File Type Date Recorded Patient Traffic Signal Supervisor Maintenance Expl anation ADVANCE DIRECTIVE 09/27/2020 12:00 AM DARREN Newman OF [employer]CE[employer] FINANCIAL/MEDICAL Care Teams Office Helper Relationship Specialty Start Date End Date Tracy Rodas MD [address] [place] [address] PCP - General Internal Medicine 07/15/20
--- OUTSIDE RECORDS SUMMARY | 2024-07-10 10:02 | XMS_ITS | Encounter Summary ---
Author Organization [facility] Address [address] [facility] [place] [address] Care Team Providers Care Hadoop Engineer Name Role Phone Tracy Rodas MD Primary Care Provider [phone] Chinedu Villalobos MD Unavailable [phone] Encounter Details Date Type Department Care Team (Late st Contact Info) Description 07/22/2020 Telephone [facility] [address] [place] [address] Livan Eckert MD [address] [facility] [address] [place] [address] Social History Tobacco Use Types [...] going to be. Patient Call Back number: [phone] PILER documented in this encounter Plan of Treatment Upcoming Encounters Date Type Department Care Team (Late st Contact Info) Description 10/17/2024 12:00 PM CDT Office Visit [facility] [address] [place] [address], [place] [id number] Christiano Grey MD [address] [place] [address] DIV [place]ERGY/[place] [address] documented as of this encounter Visit Diagnoses Not on filedocumented in this encounter Care Teams Hadoop Engineer Relationship Specialty Start Date End Date Tracy Rodas MD PCP - General Internal Medicine 04/07/13 [place] [address] [address] Orthopedic Surgery 04/07/13 documented as of this encounter
--- OUTSIDE RECORDS SUMMARY | 2024-07-10 10:02 | XMS_ITS | Clinical Summary ---
Author Organization [facility] Address [address] [place] [address] Care Team Providers Care Lens Shaper Grinder Name Role Phone Tracy Rodas MD Primary Care Provider [phone] Chinedu Villalobos MD Unavailable [phone] Source Comments [facility],non-owned Affiliates and Associated Physician Practices is amultiple site organization consisting of ambulatory clinics and hospital sitesin [place], [place], [place] and [place]. This disclosure is being madepursuant to the Care Everywhere program and may not contain all information available regarding this patient. Last updated 18.[facility] Allergies Active Allergy Reactions Criticality [...] week 11/05/2015 Active vitamin D, ergocalciferol, (DRISDOL) 12328 units capsule Take 1 (one) capsule by [...] sprayIndications: Seasonal allergic rhinitis due to pollen [place] 2 (two) sprays into each nostril 2 times daily 90 mL 3 10/19/2023 5 Discontinued mometasone (Nasonex) 50 MCG/ACT nasal sprayIndications: Seasonal allergic rhinitis due to pollen [place] 1 (one) spray into each nostril 2 [...] 2015 IMO Updt Gastroesophageal reflux disease 08/29/2012 Encounters Date Type Department Care Team Description 07/06/2024 Refill [facility] [address] [place] [address] Carol Freedman MD Refill Request 06/24/2024 Refill [facility] [address] [place] [address] Carol Freedman MD Refill Request from Last 3 Months Immunizations Name Administration Dates Next Due Covid Pfizer primary Monoval ent 5-11yr 0.2ml 02/14/2021 Covid Pfizer primary monoval ent 12+ yr 0.3mL Purple cap 01/25/2022,08/06/2020,07/14/2020 INFLUENZA VACCINE 02/20/2022, 1,02/19/2019,2017 PNEUMOCOCCAL PCV7 CONJ, PEDS 01/20/2020 Social History [...] Office Visit [facility] [address] [place] [address], [place] [address] Christiano Grey MD [address] [place] [address] OF [place]ERGY[place] [address] Health Maintenance Due Date Last Done Comments [...] Additional history exists INFLUENZA VACCINE (#1) 2024 , 02/14/2021, 02/19/2019, Additional history exists DEPRESSION SCREENING 05/21/2024 10/19/2023, 10/20/19 23 MEDICARE AWV CALENDAR YEAR 2024 HEPATITIS B VACCINE Aged [...] this topic Medical Devices Implanted Type Area Virtual Customer Assistant Device Identifier Shelf Expiration Date Model / Serial / Lot Graham Bone [place] Hv Implanted:Qty: 1 on 03/15/2015 by Chinedu Villalobos MD at [facility] Right: Knee [employer] 10/18/2016 [id number] / / [id number] Titanium Femoral Implant 67.5mm Right Implanted:Qty: 1 on 03/15/2015 by Chinedu Villalobos MD at [facility] Right: Knee [employer] 10/18/2024 [id number] / / [id number] Butn Pat Arcom Wire Polyeth Xsm 28 X 8 Implanted:Qty: 1 on 03/15/2015 by Chinedu Villalobos MD at [facility] Right: Knee [employer] 01/21/2020 [id number] / / [id number] Stem Fem Maxim I-Beam Prim 40mm Implanted:Qty: 1 on 03/15/2015 by Chinedu Villalobos MD at [facility] Right: Knee [employer] 02/17/2025 [id number] / / [id number] Ty Tibial Prim Intlok 71mm Implanted:Qty: 1 on 03/15/2015 by Chinedu Villalobos MD at [facility] Right: Knee [employer] 10/14/2024 [id number] / / [id number] Brdg Tib Gayatri Stbl Implanted:Qty: 1 on 03/15/2015 by Chinedu Villalobos MD at [facility] Right: Knee [employer] 12/25/2019 [id number] / / [id number] Cmpnt Ptlr 28mm 1 Pg Wire Ascnt Arcm Kn Implanted:Qty: 1 on 05/24/2017 by Chinedu Villalobos MD at [facility] Left: Knee Deric [employer] 04/23/2022 [id number] / / [id number] Metal Alternative Cr Femoral 65mm Implanted:Qty: 1 on 05/24/2017 by Chinedu Villalobos MD at [facility] Left: Knee [employer] 01/22/2027 [id number] / / [id number] Brng [id number] Vngrd Arcm Kn Ant Stab Implanted:Qty: 1 on 05/24/2017 by Chinedu Villalobos MD at [facility] Left: Knee [employer] 04/23/2022 [id number] / / [id number] Cmnt Bone Cblt 40gm Hvisc Strl Implanted:Qty: 1 on 05/24/2017 by Chinedu Villalobos MD at [facility] Left: Knee [employer] 09/21/2018 [id number] / / [id number] Stem Tib 40mm As Mx Kn Prm I Beam Implanted:Qty: 1 on 05/24/2017 by Chinedu Villalobos MD at [facility] Left: Knee [employer] 11/21/2026 [id number] / / [id number] Tray Tib 71mm As Mx Kn Intlk Ti Cr Prm Implanted:Qty: 1 on 05/24/2017 by Chinedu Villalobos MD at [facility] Left: Knee [employer] 03/24/2027 [id number] / / [id number] Procedures Procedure Name Priority Date/Time Associated Diagnosis [...] - 107 mmol/L 02/19/2015 12:10 PM CDT [facility] CO2 26 22 - 31 mmol/L 02/19/2015 12:10 PM CDT [facility] Calcium 9.5 8.5 - 10.1 mg/dL 02/19/2015 12:10 PM CDT [facility] Anion Gap 9 5 - 20 mmol/L 02/19/2015 12:10 PM CDT [facility] BUN 17 7 - 21 mg/dL 02/19/2015 12:10 PM CDT [facility] Creatinine 1.10 0.50 - 1.30 mg/dL 02/19/2015 12:10 PM CDT [facility] Alkaline Phosphatase 80 38 - 126 U/L 02/19/2015 12:10 PM CDT [facility] ALT 33 12 - 78 U/L 02/19/2015 12:10 PM CDT [facility] AST 17 5 - 40 U/L 02/19/2015 12:10 PM CDT [facility] Protein Total 7.5 6.4 - 8.2 gm/dL 02/19/2015 12:10 PM CDT [facility] Albumin 4.0 3.4 - 5.0 gm/dL 02/19/2015 12:10 PM CDT [facility] Bilirubin Total 0.6 0.2 - 1.0 mg/dL 02/19/2015 12:10 PM CDT [facility] eGFR by MDRD 51(L) >60 mL/min/1.7 3m2 02/19/2015 12:10 PM CDT [facility] eGFR by MDRD >60 >60 mL/min/1.7 3m2 02/19/2015 12:10 PM CDT [facility] Blood BLOOD SPECIMEN / Unknown 02/19/2015 11:39 AM CDT 02/19/2015 11:48 AM CDT Chinedu Villalobos MD LAB - CHEMISTRY ANGIE DOS SANTOS [facility] [address] [place] [address] from Last 3 Months or Most Recently Relevant to Health Maintenance Advance Directives Documents on File Type Date Recorded Patient Electric Wheelchair Repairer Expl anation Adv Directive/Living Will/POA 03/22/2015 3:11 PM * Full Code (Latest Code Status on File) Date Activated Date Inactivated Comments 05/24/2017 10:30 AM 05/26/2017 4:09 PM * Full Code Date Activated Date Inactivated Comments 03/15/2015 12:14 PM 03/18/2015 1:10 PM Care Teams Lens Shaper Grinder Relationship Specialty Start Date End Date Tracy Rodas MD PCP - General Internal Medicine 04/07/13 [place] [address] [place] [address] Orthopedic Surgery 04/07/13
--- OUTSIDE RECORDS SUMMARY | 2024-07-10 10:02 | XMS_ITS | Patient Health Summary ---
Author Organization [facility] Address [address] [place] [address] Care Team Providers Care Track Repairer Name Role Phone Tracy Rodas MD Primary Care Provider [phone] Chinedu Villalobos MD Unavailable [phone] Note from [facility],non-owned Affiliates and Associated Physician Practices is amultiple site organization consisting of ambulatory clinics and hospital sitesin [place], [place], [place]. This disclosure is being madepursuant to the Care Everywhere program and may not contain all information available regarding this patient. Last updated 18.[facility] Allergies * Ambrosia Artemisiifolia, Ragweed(Shortness [...] a week * vitamin D, ergocalciferol, (DRISDOL) 60041 units capsule(Started 09/06/2018) Take 1 (one) capsule by mouth every 14 days 1 refill left * nebivolol (Bystolic) 10 MG tablet Take 1 (one) tablet by mouth once daily * ciprofloxacin (Cipro) 250 MG tablet Take 1 (one) tablet by mouth 2 times daily * albuterol HFA (Proventil; Ventolin; Proair) 108 (90 Base) MCG/ACT inhaler (Started 10/19/2023) Inhale 2 (two) puffs by mouth every 4 hours as needed for Wheezing 5 refills by 10/18/2024 * albuterol (Proventil;Ventolin) (2.5 [...] daily before breakfast 3 refills by 10/18/2024 * mometasone (Nasonex) 50 MCG/ACT nasal spray(Started 06/24/2024) INSTILL 1 SPRAY INTO EACH NOSTRIL TWICE A DAY 3 refills by 06/24/2025 * Azelastine HCl 137 MCG/SPRAY SOLN(Started 07/07/2024) SPRAY 2 (TWO) SPRAYS INTO EACH NOSTRIL 2 TIMES DAILY 5 refills by 07/07/2025 Ended Medications* azelastine (Astelin) 0.1 % nasal spray(Started 10/19/2023) (Discontinued) Moss 2 (two) sprays into each nostril 2 times daily 3 refills by 10/18/2024 * mometasone (Nasonex) 50 MCG/ACT nasal spray(Started 10/19/2023)(Discontinued) Moss 1 (one) spray into each nostril 2 times daily 3 refills by 10/18/2024 Active Problems Problem [...] AM CDT Medical Devices Implanted Type Area Scooping Machine Tender Device Identifier Shelf Expiration Date Model / Serial / Lot Graham Bone Surprise Hv Implanted:Qty: 1 on 03/15/2015 by Chinedu Villalobos MD at [facility] Right: Knee [employer] 10/18/2016 [id number] / / [id number] Titanium Femoral Implant 67.5mm Right Implanted:Qty: 1 on 03/15/2015 by Chinedu Villalobos MD at [facility] Right: Knee [employer] 10/18/2024 [id number] / / [id number] Butn Pat Arcom Wire Polyeth Xsm 28 X 8 Implanted:Qty: 1 on 03/15/2015 by Chinedu Villalobos MD at [facility] Right: Knee [employer] 01/21/2020 [id number] / / [id number] Stem Fem Maxim I-Beam Prim 40mm Implanted:Qty: 1 on 03/15/2015 by Chinedu Villalobos MD at [facility] Right: Knee [employer] 02/17/2025 [id number] / / [id number] Ty Tibial Prim Intlok 71mm Implanted:Qty: 1 on 03/15/2015 by Chinedu Villalobos MD at [facility] Right: Knee [employer] 10/14/2024 [id number] / / [id number] Brdg Tib Gayatri Stbl Implanted:Qty: 1 on 03/15/2015 by Chinedu Villalobos MD at [facility] Right: Knee [employer] 12/25/2019 [id number] / / [id number] Cmpnt Ptlr 28mm 1 Pg Wire Ascnt Arcm Kn Implanted:Qty: 1 on 05/24/2017 by Chinedu Villalobos MD at [facility] Left: Knee Deric [employer] 04/23/2022 [id number] / / [id number] Metal Alternative Cr Femoral 65mm Implanted:Qty: 1 on 05/24/2017 by Chinedu Villalobos MD at [facility] Left: Knee [employer] 01/22/2027 [id number] / / [id number] Brng [id number] Vngrd Arcm Kn Ant Stab Implanted:Qty: 1 on 05/24/2017 by Chinedu Villalobos MD at [facility] Left: Knee Deric [employer] 04/23/2022 [id number] / / [id number] Cmnt Bone Cblt 40gm Hvisc Strl Implanted:Qty: 1 on 05/24/2017 by Chinedu Villalobos MD at [facility] Left: Knee [employer] 09/21/2018 [id number] / / [id number] Stem Tib 40mm As Mx Kn Prm I Beam Implanted:Qty: 1 on 05/24/2017 by Chinedu Villalobos MD at [facility] Left: Knee Deric [employer] 11/21/2026 [id number] / / [id number] Tray Tib 71mm As Mx Kn Intlk Ti Cr Prm Implanted:Qty: 1 on 05/24/2017 by Chinedu Villalobos MD at [facility] Left: Knee [employer]eric [employer] 03/24/2027 [id number] / / [id number] Procedures * XR KNEE BILAT 3VW(Performed 05/03/2021) [...] XR KNEE BILAT 3VW (05/03/2021 2:10 PM PUBLIC AFFAIRS DIRECTOR) Only the most recent of2 resultswithin the time period is included. Anatomical Region Laterality Modality Lower Extremity Computed Radiogr aphy Narrative 05/03/2021 2:12 PM PUBLIC AFFAIRS DIRECTOR Janice Krishnan RT(R) 05/11/2021 5:10 PM See progress notes for results Sarah Ram PA-C DIAGNOSTIC IM AGING ORDERABLES * PFT (11/05/2018 2:59 PM CDT) Narrative 11/05/2018 2:59 PM CDT Ordered by an unspecified provider. Scanned Document SCANNING ONLY * XR KNEE 3 VW LEFT (07/05/2017 4:10 PM PUBLIC AFFAIRS DIRECTOR) Only the most recent of2 resultswithin the time period is included. Anatomical Region Laterality Modality Lower Extremity Computed Radiogr aphy Narrative 07/06/2017 9:00 AM PUBLIC AFFAIRS DIRECTOR Virgen Betancourt RT(R) 07/06/2017 9:00 AM See Chart For Xray Report Sarah Ram PA-C DIAGNOSTIC IM AGING ORDERABLES * LAB RESULTS ORDER (05/29/2017 6:03 PM PUBLIC AFFAIRS DIRECTOR) Narrative 05/29/2017 6:03 PM PUBLIC AFFAIRS DIRECTOR Ordered by an unspecified provider. Scanned Document LAB - THERAPEUTIC DR SMITHA MONITORING ORDERABLES * CARDIAC EKG ORDER (05/29/2017 6:03 PM PUBLIC AFFAIRS DIRECTOR) Narrative 05/29/2017 6:03 PM PUBLIC AFFAIRS DIRECTOR Ordered by an unspecified provider. Scanned Document CARDIAC SERVICES ORD ERABLES * (ABNORMAL) HGB HCT PANEL (05/26/2017 5:13 AM PUBLIC AFFAIRS DIRECTOR) Only the most recent of4 resultswithin the time period is included. [facility] Hemoglobin 10.7(L) 12.0 - 15.6 gm/dL 05/26/2017 5:48 AM PUBLIC AFFAIRS DIRECTOR [facility] Hematocrit 32.2(L) 35.9 - 45.5 % 05/26/2017 5:48 AM PUBLIC AFFAIRS DIRECTOR [facility] Blood BLOOD SPECIMEN / Unknown Venipuncture / Unknown 05/26/2017 5:13 AM PUBLIC AFFAIRS DIRECTOR 05/26/2017 5:33 AM PUBLIC AFFAIRS DIRECTOR Chinedu Villalobos MD LAB - HEMATOLOGY ORD ERABLES Performing Organization Address City/State/[facility] Co de Phone Number [facility] [address] [place] [address] * XR KNEE 3 VW RIGHT (03/13/2016 2:27 PM CDT) Only the most recent of2 resultswithin the time period is included. Anatomical Region Laterality Modality Lower Extremity Radiographic Rose ging Narrative 03/13/2016 4:28 PM CDT Virgen Betancourt, RT(R) 03/13/2016 4:28 PM See Chart For Xray Report Chinedu Villalobos MD DIAGNOSTIC IMAGING O RDERABLES * NEURAXIAL BLOCK (03/15/2015 9:46 AM CDT) Narrative Juaquin Mayorga APRN-CRNA - 03/15/2015 9:46 AM CDT Juaquin Mayorga APRN-CRNA 03/15/2015 9:46 AM NEURAXIAL BLOCK Patient Location: OR Pre Procedure Indication: at patient's request and surgical anesthesia Anticoagulation /Antithrombosis Status Confirmed: Yes Preanesthetic Checklist: patient identified, IV checked, site marked, risks and benefits discussed, surgical consent verified, monitors and equipment checked, pre-op evaluation done, informed consent obtained and questions answered / anesthesia plan accepted Monitors: Pulse Ox Patient Condition: sedated, meaningful contact maintained throughout procedure Patient Position: sitting Procedure Block Performed: spinal Prep: Chloraprep Sterile Field: sterile gloves, sterile field established, cap/hat and mask Approach: midline Spinal Needle Type: pencil-point Needle Gauge: 25 G Needle Length: 3.5 in Placement Site: L3-4 Number of Attempts: 1 Degree of Difficulty: none Block Performed by: kk Juaquin Mayorga DEFECTIVE CIGARETTE SLITTER-FORESTRY BIOLOGY SPECIALIST GENERAL ANESTH ESIA ORDERABLES * CULTURE MSSA/MRSA (02/19/2015 11:39 AM CDT) Culture Negative for MRSA/MSSA WILFREDO 02/20/2015 1:59 PM CDT [facility] Microbiology SPECIMEN FROM NASAL FOSSAE / Unknown 02/19/2015 11:39 AM CDT 02/19/2015 11:48 AM CDT Chinedu Villalobos MD LAB - MICROBIOLOGY O RDERABLES [facility] [address] [place] [address], [facility] [phone] * CBC W AUTO DIFFERENTIAL (02/19/2015 11:39 AM CDT) Only the most recent of2 resultswithin the time period is included. WBC 9.6 4.4 - 10.7 x10^9/L 02/19/2015 11:52 AM CDT [facility] WBC Corrected x10^9/L 02/19/2015 11:52 AM CDT [facility] RBC 4.80 3.80 - 5.20 x10^12/L 02/19/2015 11:52 AM CDT [facility] Hemoglobin 13.0 12.0 - 15.6 gm/dL 02/19/2015 11:52 AM CDT [facility] Hematocrit 38.9 35.9 - 45.5 % 02/19/2015 11:52 AM CDT [facility] MCV 81.0 80.7 - 98.3 fl 02/19/2015 11:52 AM CDT [facility] MCH 27.1 26.7 - 34.0 pg 02/19/2015 11:52 AM CDT [facility] MCHC 33.4 30.8 - 35.9 gm/dL 02/19/2015 11:52 AM CDT [facility] Platelet Count 281 153 - 416 x10^9/L 02/19/2015 11:52 AM CDT [facility] RDW-CV 13.7 12.1 - 14.9 % 02/19/2015 11:52 AM CDT [facility] MPV 10.1 9.4 - 12.9 fl 02/19/2015 11:52 AM CDT [facility] Neutrophils % 61.8 44.0 - 73.0 % 02/19/2015 11:52 AM CDT [facility] Lymphocytes % 28.0 20.0 - 43.0 % 02/19/2015 11:52 AM T [facility] Monocytes % 8.1 5.0 - 13.0 % 02/19/2015 11:52 AM T [facility] Eosinophils % 1.7 0.0 - 6.0 % 02/19/2015 11:52 AM T [facility] Basophils % 0.3 0.0 - 2.0 % 02/19/2015 11:52 AM T [facility] Immature Granulocytes 0.1 0 - 1 % 02/19/2015 11:52 AM CDT [facility] Neutrophil Absolute 5.93 2.01 - 7.14 x10^9/L 02/19/2015 11:52 AM T [facility] Lymphocytes Absolute 2.69 1.07 - 3.94 x10^9/L 02/19/2015 11:52 AM T [facility] Monocytes Absolute 0.78 0.26 - 1.07 x10^9/L 02/19/2015 11:52 AM CDT [facility] Eosinophils Absolute 0.16 0 - 0.47 x10^9/L 02/19/2015 11:52 AM CDT [facility] Basophils Absolute 0.03 0 - 0.08 x10^9/L 02/19/2015 11:52 AM T [facility] Immature Granulocytes Absolute 0.01 0.00 - 0.06 x10^9/L 02/19/2015 11:52 AM CDT [facility] nRBC Auto 0 /100 WBC 02/19/2015 11:52 AM T [facility] Blood BLOOD SPECIMEN / Unknown 02/19/2015 11:39 AM CDT 02/19/2015 11:48 AM CDT Chinedu Villalobos MD LAB - HEMATOLOGY ORD ERABLES [facility] [address] [id number] * (ABNORMAL) COMPREHENSIVE METABOLIC PANEL (02/19/2015 11:39 AM CDT) Glucose 99 74 - 106 mg/dL 02/19/2015 12:10 PM CDT [facility] Sodium 138 136 - 145 mmol/L 02/19/2015 12:10 PM CDT [facility] Potassium 3.4(L) 3.5 - 5.1 mmol/L 02/19/2015 12:10 PM CDT [facility] Chloride 103 98 - 107 mmol/L 02/19/2015 12:10 PM CDT [facility] CO2 26 22 - 31 mmol/L 02/19/2015 12:10 PM CDT [facility] Calcium 9.5 8.5 - 10.1 mg/dL 02/19/2015 12:10 PM CDT [facility] Anion Gap 9 5 - 20 mmol/L 02/19/2015 12:10 PM CDT [facility] BUN 17 7 - 21 mg/dL 02/19/2015 12:10 PM CDT [facility] Creatinine 1.10 0.50 - 1.30 mg/dL 02/19/2015 12:10 PM CDT [facility] Alkaline Phosphatase 80 38 - 126 U/L 02/19/2015 12:10 PM CDT [facility] ALT 33 12 - 78 U/L 02/19/2015 12:10 PM CDT [facility] AST 17 5 - 40 U/L 02/19/2015 12:10 PM CDT [facility] Protein Total 7.5 6.4 - 8.2 gm/dL 02/19/2015 12:10 PM CDT [facility] Albumin 4.0 3.4 - 5.0 gm/dL 02/19/2015 12:10 PM CDT [facility] Bilirubin Total 0.6 0.2 - 1.0 mg/dL 02/19/2015 12:10 PM CDT [facility] eGFR by MDRD 51(L) >60 mL/min/1.7 3m2 02/19/2015 12:10 PM CDT [facility] eGFR by MDRD >60 >60 mL/min/1.7 3m2 02/19/2015 12:10 PM CDT [facility] Blood BLOOD SPECIMEN / Unknown 02/19/2015 11:39 AM CDT 02/19/2015 11:48 AM CDT Chinedu Villalobos MD LAB - CHEMISTRY ANGIE DOS SANTOS Performing Organization Address [facility]/ZIP Co de Phone Number [facility] [address] [place] [address] * EKG 12-LEAD (02/19/2015 11:26 AM CDT) Ventricular Rate 73 BPM [facility] Atrial Rate 73 BPM [facility] P-R Interval 196 ms [facility] QRS Duration ms 86 ms [facility] Q-T Interval ms 386 ms [facility] QTC Calculation (Bezet) 425 ms [facility] Calculated P [place] 38 degrees [facility] Calculated R [place] -11 degrees [facility] Calculated T [place] 4 degrees [facility] Interpretation EKG Normal sinus rhythm Inferior infarct , age undetermined Possible Anterior infarct , age undetermined Abnormal ECG No previous ECGs available Confirmed by BALBIR EDDY MD ([id number]) on 02/20/2015 11:31:07 PM [facility] 02/19/2015 11:2 6 AM CDT 02/20/2015 11:31 PM CDT Chinedu Villalobos MD ECG ORDERABLES Performing Organization Address [facility]/ZIP Co de Phone Number [facility] Care Teams Track Repairer Relationship Specialty Start Date End Date Tracy Rodas MD PCP - General Internal Medicine 04/07/13 [place] [address] [place] [address] Orthopedic Surgery 04/07/13
--- OUTSIDE RECORDS SUMMARY | 2024-07-10 10:02 | XMS_ITS | Clinical Summary ---
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 Gender Identity Female 09/30/2020 11:24 AM CDT [...] Pneumococcal vaccine 65+ (3 of 3 - PCV20 or PCV21) 01/27/2025 01/28/2020, 01/20/2020, 02/23/2014 DTaP/Tdap/Td Vaccine (2 - Td or Tdap) 08/22/2028 08/22/2018 Zoster Vaccine Completed 10/23/2018, 08/22/2018 Influenza Vaccine Completed 02/22/2024, , 02/14/2021, Additional history exists [place] [address] MEDICARE [facility] MEDIC[facility] Address: [facility] [address] [place] [address] [place] [address] [employer] SIG [id number] Advance Directives For more information, please contact: [phone] Documents on File Type Date Recorded Patient Apprentice Embalmer Expl anation ADVANCE DIRECTIVE 09/27/2020 12:00 AM DARREN R OF JAMB CUTTER FINANCIAL/MEDICAL Care Teams Exhaust Emissions Inspector Relationship Specialty Start Date End Date Tracy Rodas MD [address] [place] [address] PCP - General Internal Medicine 07/15/20
[2024-07-10 11:17] LABS: Anion Gap 7 mmol/L (4-12); Blood Urea Nitrogen 20 mg/dL (7-18); Calcium 8.8 mg/dL (8.5-10.1); Carbon Dioxide 27 mmol/L (21-32); Chloride 101 mmol/L (98-108); Estimated Glomerular Filt Rate 43; Glucose 87 mg/dL (70-99); Osmolality Calculated 281 mOsm/kg (285-295); Potassium 4.9 mmol/L (3.5-5.1); Sodium 135 mmol/L (136-145)
== END 2024-07-10 09:46 | disposition home or self-care (01) ==
LOC: CHSLAB 09:47
PROVIDERS: PCP Internal Medicine; Visit Provider Internal Medicine
DX: N18.2 Chronic kidney disease, stage 2 (mild) (principal)
CPT/HCPCS: 36415; 80048

== ENCOUNTER 2024-07-21 07:25 | Outpatient (NON) | payer MEDICARE, SELFPAY ==
--- OUTSIDE RECORDS SUMMARY | 2024-07-22 07:29 | XMS_ITS | Referral Summary ---
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 Gender Identity Female 09/30/2020 11:24 AM CDT [...] Not on file Insurance MEDICARE [facility] MEDIC[facility] Address: [address] [address] [place] [address] [employer] SIG [id number] [place] [address] Advance Directives For more information, please contact: [phone] Documents on File Type Date Recorded Patient Supervising Law Enforcement Analyst Expl anation ADVANCE DIRECTIVE 09/27/2020 12:00 AM DARREN Newman OF OIL AND GAS RECRUITER FINANCIAL/MEDICAL Care Teams Data Integrity Consultant Relationship Specialty Start Date End Date Tracy Rodas MD [address] [place] [address] PCP - General Internal Medicine 07/15/20
--- OUTSIDE RECORDS SUMMARY | 2024-07-22 07:29 | XMS_ITS | Encounter Summary ---
Author Organization [facility] Address [address] [facility] [place] [address] Care Team Providers Care Director Mobile Media Solutions Name Role Phone Tracy Rodas MD Primary Care Provider Chinedu Villalobos MD Unavailable [phone] Encounter Details Date Type Department Care Team (Late st Contact Info) Description 07/22/2020 Telephone [facility] [address] [place] [address] Livan Eckert MD [address] [place] [address] Social History Tobacco Use Types [...] going to be. Patient Call Back number: [phone] [place] documented in this encounter Plan of Treatment Upcoming Encounters Date Type Department Care Team (Late st Contact Info) Description 10/17/2024 12:00 PM CDT Office Visit [facility] - Allergy [address] [place] [address], [place] [id number] Christiano Grey MD [address] [place] [address] DIV OF ALLERGY/[place] [address] documented as of this encounter Visit Diagnoses Not on filedocumented in this encounter Care Teams Director [employer] Media [employer] Relationship Specialty Start Date End Date Tracy Rodas MD PCP - General Internal Medicine 04/07/13 [place] [address] [address] Orthopedic Surgery 04/07/13 documented as of this encounter
--- OUTSIDE RECORDS SUMMARY | 2024-07-22 07:29 | XMS_ITS | Clinical Summary ---
Author Organization [place] [address] [place] [address] Care Team Providers Care Cardiac Technologist Name Role Phone Tracy Rodas MD Primary Care Provider [phone] Allergies Active Allergy Reactions Criticality Noted Date [...] on file Legal Sex Female 12:41 AM CONTINUOUS MINER Gender Identity Female 09/30/2020 11:24 AM CDT [...] , 02/14/2021, Additional history exists [place] [address] [place] [address] [employer] SIG [id number] Advance Directives For more information, please contact: [phone] Documents on File Type Date Recorded Patient It Administrative Assistant Expl anation ADVANCE DIRECTIVE 09/27/2020 12:00 AM DARREN R OF ASSEMBLY MANAGER FINANCIAL/MEDICAL Care Teams Cardiac Technologist Relationship Specialty Start Date End Date Tracy Rodas MD [address] [place] [address] PCP - General Internal Medicine 07/15/20
--- OUTSIDE RECORDS SUMMARY | 2024-07-22 07:29 | XMS_ITS | Encounter Summary ---
Author Organization [facility] Address [address] [facility] [place] [address] Care Team Providers Care Resolution Expert Name Role Phone Tracy Rodas MD Primary Care Provider [phone] Chinedu Villalobos MD Unavailable Encounter Details Date Type Department Care Team (Late st Contact Info) Description 04/03/2015 Therapy Visit [facility] Orthopedics [address] [address] [place] [address] [address] Social History Tobacco Use [...] Office Visit [facility] - Allergy [address] [place] [address], [place] [address] Christiano Grey MD [address] [place] [address] DIV OF ALLERGY/[place] [address] documented as of this encounter Visit Diagnoses Not on filedocumented in this encounter Care Teams Resolution Expert Relationship Specialty Start Date End Date Tracy Rodas MD PCP - General Internal Medicine 04/07/13 [place] [address] [facility] [address] [place] [address] Orthopedic Surgery 04/07/13 documented as of this encounter
--- OUTSIDE RECORDS SUMMARY | 2024-07-22 07:29 | XMS_ITS | Encounter Summary ---
Author Organization [facility] Address [address] [facility] [place] [address] Care Team Providers Care Guidance And Control System Engineer Name Role Phone Tracy Rodas MD Primary Care Provider [phone] Chinedu Villalobos MD Unavailable [phone] Encounter Details Date Type Department Care Team (Late st Contact Info) Description 06/15/2015 Therapy Visit [facility] Orthopedics [address] [address] [place] [address] [address] Social History Tobacco Use Types [...] Office Visit [facility] - Allergy [address] [place] [address], [place] [address] Christiano Grey MD [address] [place] [address] DIV OF ALLERGY/[place] [address] documented as of this encounter Visit Diagnoses Not on filedocumented in this encounter Care Teams Guidance And Control System Engineer Relationship Specialty Start Date End Date Tracy Rodas MD PCP - General Internal Medicine 04/07/13 [place] [address] [facility] [address] [place] [address] Orthopedic Surgery 04/07/13 documented as of this encounter
--- OUTSIDE RECORDS SUMMARY | 2024-07-22 07:29 | XMS_ITS | Continuity of Care Document ---
Author Organization [employer] [facility] Address [address] [facility] [address] [place] [address] Phone Care Team Providers Care Hot Plate Plywood Press Operator Name Role Phone Unavailable Unavailable Unavailable Allergies, [...] 100 MG - Active Nasonex 50 mcg/actuation Walker spray 2 spray by intranasal route every day in each nostril - Active Flovent HFA 110 mcg/actuation aerosol inhaler inhale 1 puff by inhalation route 2 times every day - Active cefdinir 300 mg capsule take 1 capsule by oral route every 12 hours 300 MG - No Longer Active prednisone 20 mg tablet take 1 tablet by oral route 3 times every day for 1 day, then 2 daily for 3 days, then 1 daily for 3 days - No Longer Active azithromycin 250 mg tablet take 2 [...] Copied on Encounter Offic/outpt E&m New Low-mod [facility], [address], [place], [place], [id number], [place] tel:[phone] [facility] asthma (chief complaint) Mild intermittent asthma with acute exacerbation 9 No Information Family History Family Member Type Diagnosis Age At Onset No Information Payers Payer name Insurance type Covered green party ID Neal manning(s) [facility] [id number] Social History Type Description Quantity Date Captured [...] Of Treatment Date Type Action Status Goal Td vaccine. Due on 19 due Goal FIT Occult Blood, Fecal, IA. Due on due Goal Tdap. Due on due Goal Flu-Quad 3 yrs and older. Rika andrade on due Goal Zoster vaccine. Due on due Goal Depression Screening. Due on due Goal Pap/HPV testing. Due on due Goal Colonoscopy. Due on 019 due Goal Mammogram. Due on 9 due Goal Lipid panel. Due on 019 due Goal Health Promotion Plan. Due o n due Goal SBIRT. Due on rika andrade History Of Present Illness Encounter Date Complaint [...] Mental Status Date Cognitive Assessment Orientation - Burt ed to time, place, person, situation. Patient Care Teams Name Effective Dates (start - stop) Status Members No Information
--- OUTSIDE RECORDS SUMMARY | 2024-07-22 07:30 | XMS_ITS | Patient Health Summary ---
Author Organization [facility] Address [address] [facility] [place] [address] Care Team Providers Care District Sales Manager Name Role Phone Tracy Rodas MD Primary Care Provider [phone] Chinedu Villalobos MD Unavailable [phone] Note from [facility],non-owned Affiliates and Associated Physician Practices is amultiple site organization consisting of ambulatory clinics and hospital sitesin [place], [place], [place] and [place]. This disclosure is being madepursuant to the Care Everywhere program and may not contain all information available regarding this patient. Last updated 18.[facility] Allergies * Ambrosia Artemisiifolia, Ragweed(Shortness of Breath,Rhinitis) [...] a week * vitamin D, ergocalciferol, (DRISDOL) 55762 units capsule(Started 09/06/2018) Take 1 (one) capsule [...] (Astelin) 0.1 % nasal spray(Started 10/19/2023) (Discontinued) [place]ully 2 (two) sprays into each nostril 2 times daily 3 refills by 10/18/2024 * mometasone (Nasonex) 50 MCG/ACT nasal spray(Started 10/19/2023)(Discontinued) [place] 1 (one) spray into each nostril 2 [...] AM CDT Medical Devices Implanted Type Area Unix Engineer Device Identifier Shelf Expiration Date Model / Serial / Lot Graham Bone [place] Hv Implanted:Qty: 1 on 03/15/2015 by Chinedu Villalobos MD at [facility] Right: Knee [employer] 10/18/2016 [id number] / / [id number] Titanium Femoral Implant 67.5mm Right Implanted:Qty: 1 on 03/15/2015 by Chinedu Villalobos MD at [facility] Right: Knee [employer] 10/18/2024 [id number] / / [id number] Butn Pat Arcom Wire Polyeth Xsm 28 X 8 Implanted:Qty: 1 on 03/15/2015 by Chinedu Villalobos MD at [facility] Right: Knee [employer] 01/21/2020 [id number] / / [id number] Stem Fem Maxim I-Beam Prim 40mm Implanted:Qty: 1 on 03/15/2015 by Chinedu Villalobos MD at [facility] Right: Knee [employer] 02/17/2025 [id number] / / [id number] Ty Tibial Prim Intlok 71mm Implanted:Qty: 1 on 03/15/2015 by Chinedu Villalobos MD at [facility] Right: Knee [employer] 10/14/2024 [id number] / / [id number] Brdg Tib Gayatri Stbl Implanted:Qty: 1 on 03/15/2015 by Chinedu Villalobos MD at [facility] Right: Knee [employer] 12/25/2019 [id number] / / [id number] Cmpnt Ptlr 28mm 1 Pg Wire Ascnt Arcm Kn Implanted:Qty: 1 on 05/24/2017 by Chinedu Villalobos MD at [facility] Left: Knee Deric [employer] 04/23/2022 [id number] / / [id number] Metal Alternative Cr Femoral 65mm Implanted:Qty: 1 on 05/24/2017 by Chinedu Villalobos MD at [facility] Left: Knee [employer] 01/22/2027 [id number] / / [id number] Brng 73ckj57ir Vngrd Arcm Kn Ant Stab Implanted:Qty: 1 on 05/24/2017 by Chinedu Villalobos MD at [facility] Left: Knee [employer] 04/23/2022 [id number] / / [id number] Cmnt Bone Cblt 40gm Hvisc Strl Implanted:Qty: 1 on 05/24/2017 by Chinedu Villalobos MD at [facility] Left: Knee [employer] 09/21/2018 600-15-000 / / [id number] Stem Tib 40mm As Mx Kn Prm I Beam Implanted:Qty: 1 on 05/24/2017 by Chinedu Villalobos MD at [facility] Left: Knee [employer] 11/21/2026 [id number] / / [id number] Tray Tib 71mm As Mx Kn Intlk Ti Cr Prm Implanted:Qty: 1 on 05/24/2017 by Chinedu Villalobos MD at [facility] Left: Knee [employer] 03/24/2027 [id number] / / [id number] Procedures * XR KNEE BILAT 3VW(Performed 05/03/2021) [...] XR KNEE BILAT 3VW (05/03/2021 2:10 PM DIGITAL PRESS OPERATOR) Only the most recent of2 resultswithin the time period is included. Anatomical Region Laterality Modality Lower Extremity Computed Radiogr aphy Narrative 05/03/2021 2:12 PM DIGITAL PRESS OPERATOR Janice Krishnan RT(R) 05/11/2021 5:10 PM See progress notes for results Sarah Ram PA-C DIAGNOSTIC IM AGING ORDERABLES * PFT (11/05/2018 2:59 PM CDT) Narrative 11/05/2018 2:59 PM CDT Ordered by an unspecified provider. Scanned Document SCANNING ONLY * XR KNEE 3 VW LEFT (07/05/2017 4:10 PM DIGITAL PRESS OPERATOR) Only the most recent of2 resultswithin the time period is included. Anatomical Region Laterality Modality Lower Extremity Computed Radiogr aphy Narrative 07/06/2017 9:00 AM DIGITAL PRESS OPERATOR Virgen Betancourt RT(R) 07/06/2017 9:00 AM See Chart For Xray Report Sarah Ram PA-C DIAGNOSTIC IM AGING ORDERABLES * LAB RESULTS ORDER (05/29/2017 6:03 PM DIGITAL PRESS OPERATOR) Narrative 05/29/2017 6:03 PM DIGITAL PRESS OPERATOR Ordered by an unspecified provider. Scanned Document LAB - THERAPEUTIC DR SMITHA MONITORING ORDERABLES * CARDIAC EKG ORDER (05/29/2017 6:03 PM DIGITAL PRESS OPERATOR) Narrative 05/29/2017 6:03 PM DIGITAL PRESS OPERATOR Ordered by an unspecified provider. Scanned Document CARDIAC SERVICES ORD ERABLES * (ABNORMAL) HGB HCT PANEL (05/26/2017 5:13 AM DIGITAL PRESS OPERATOR) Only the most recent of4 resultswithin the time period is included. [facility] Hemoglobin 10.7(L) 12.0 - 15.6 gm/dL 05/26/2017 5:48 AM DIGITAL PRESS OPERATOR [facility] Hematocrit 32.2(L) 35.9 - 45.5 % 05/26/2017 5:48 AM DIGITAL PRESS OPERATOR [facility] Blood BLOOD SPECIMEN / Unknown Venipuncture / Unknown 05/26/2017 5:13 AM DIGITAL PRESS OPERATOR 05/26/2017 5:33 AM DIGITAL PRESS OPERATOR Chinedu Villalobos MD LAB - HEMATOLOGY ORD ERABLES Performing Organization Address City/State/[facility] Co de Phone Number [facility] [address] [place] [address] * XR KNEE 3 VW RIGHT (03/13/2016 [...] none Block Performed by: kk Juaquin Mayorga MANAGER OF PLANNING-IMPREGNATOR AND DRIER HELPER GENERAL ANESTH ESIA ORDERABLES * CULTURE MSSA/MRSA (02/19/2015 11:39 AM CDT) Culture Negative for MRSA/MSSA WILFREDO 02/20/2015 1:59 PM CDT [facility] MICROBIOLOGY Microbiology SPECIMEN FROM NASAL FOSSAE / Unknown 02/19/2015 11:39 AM CDT 02/19/2015 11:48 AM CDT Chinedu Villalobos MD LAB - MICROBIOLOGY O RDERABLES [facility] MICROBIOLOGY [address] [place] [address], [facility] [phone] * CBC W AUTO DIFFERENTIAL (02/19/2015 11:39 [...] - 34.0 pg 02/19/2015 11:52 AM CDT [facility] MCHC 33.4 30.8 - 35.9 gm/dL 02/19/2015 11:52 AM CDT [facility] Platelet Count 281 153 - 416 x10^9/L 02/19/2015 11:52 AM CDT [facility] RDW-CV 13.7 12.1 - 14.9 % 02/19/2015 11:52 AM CDT [facility] MPV 10.1 9.4 - 12.9 fl 02/19/2015 11:52 AM CDT [facility] Neutrophils % 61.8 44.0 - 73.0 % 02/19/2015 11:52 AM CDT [facility] Lymphocytes % 28.0 20.0 - 43.0 % 02/19/2015 11:52 AM T [facility] Monocytes % 8.1 5.0 - 13.0 % 02/19/2015 11:52 AM T [facility] Eosinophils % 1.7 0.0 - 6.0 % 02/19/2015 11:52 AM T [facility] Basophils % 0.3 0.0 - 2.0 % 02/19/2015 11:52 AM T [facility] Immature Granulocytes 0.1 0 - 1 % 02/19/2015 11:52 AM CDT [facility] Neutrophil Absolute 5.93 2.01 - 7.14 x10^9/L 02/19/2015 11:52 AM T [facility] Lymphocytes Absolute 2.69 1.07 - 3.94 x10^9/L 02/19/2015 11:52 AM T [facility] Monocytes Absolute 0.78 0.26 - 1.07 x10^9/L 02/19/2015 11:52 AM CDT [facility] Eosinophils Absolute 0.16 0 - 0.47 x10^9/L 02/19/2015 11:52 AM CDT [facility] Basophils Absolute 0.03 0 - 0.08 x10^9/L 02/19/2015 11:52 AM T [facility] Immature Granulocytes Absolute 0.01 0.00 - 0.06 x10^9/L 02/19/2015 11:52 AM CDT [facility] nRBC Auto 0 /100 WBC 02/19/2015 11:52 AM T [facility] Blood BLOOD SPECIMEN / Unknown 02/19/2015 11:39 AM CDT 02/19/2015 11:48 AM CDT Chinedu Villalobos MD LAB - HEMATOLOGY ORD ERABLES [facility] [address] [place] [id number] * (ABNORMAL) COMPREHENSIVE METABOLIC PANEL (02/19/2015 11:39 AM CDT) Glucose 99 74 - 106 mg/dL 02/19/2015 12:10 PM CDT [facility] Sodium 138 136 - 145 mmol/L 02/19/2015 12:10 PM CDT [facility] Potassium 3.4(L) 3.5 - 5.1 mmol/L 02/19/2015 12:10 PM CDT [facility] Chloride 103 98 - 107 mmol/L 02/19/2015 12:10 PM CDT [facility] CO2 26 22 - 31 mmol/L 02/19/2015 12:10 PM CDT [facility] Calcium 9.5 8.5 - 10.1 mg/dL 02/19/2015 12:10 PM CDT [facility] Anion Gap 9 5 - 20 mmol/L 02/19/2015 12:10 PM CDT [facility] BUN 17 7 - 21 mg/dL 02/19/2015 12:10 PM CDT [facility] Creatinine 1.10 0.50 - 1.30 mg/dL 02/19/2015 12:10 PM CDT [facility] Alkaline Phosphatase 80 38 - 126 U/L 02/19/2015 12:10 PM CDT [facility] ALT 33 12 - 78 U/L 02/19/2015 12:10 PM CDT [facility] AST 17 5 - 40 U/L 02/19/2015 12:10 PM CDT [facility] Protein Total 7.5 6.4 - 8.2 gm/dL 02/19/2015 12:10 PM CDT [facility] Albumin 4.0 3.4 - 5.0 gm/dL 02/19/2015 12:10 PM CDT [facility] Bilirubin Total 0.6 0.2 - 1.0 mg/dL 02/19/2015 12:10 PM CDT [facility] eGFR by MDRD 51(L) >60 mL/min/1.7 3m2 02/19/2015 12:10 PM CDT [facility] eGFR by MDRD >60 >60 mL/min/1.7 3m2 02/19/2015 12:10 PM CDT [facility] Blood BLOOD SPECIMEN / Unknown 02/19/2015 11:39 AM CDT 02/19/2015 11:48 AM CDT Chinedu Villalobos MD LAB - CHEMISTRY ANGIE DOS SANTOS Performing Organization Address [facility]/ZIP Co de Phone Number [facility] [address] [place] [address] * EKG 12-LEAD (02/19/2015 11:26 AM CDT) Ventricular Rate 73 BPM [facility] Atrial Rate 73 BPM [facility] P-R Interval 196 ms [facility] QRS Duration ms 86 ms [facility] Q-T Interval ms 386 ms [facility] QTC Calculation (Bezet) 425 ms [facility] Calculated P [place]inck[place] 38 degrees [facility] Calculated R [place] -11 degrees [facility] Calculated T [place] 4 degrees [facility] Interpretation EKG Normal sinus rhythm Inferior infarct , age undetermined Possible Anterior infarct , age undetermined Abnormal ECG No previous ECGs available Confirmed by BALBIR EDDY MD ([id number]) on 02/20/2015 11:31:07 PM [facility] 02/19/2015 11:2 6 AM CDT 02/20/2015 11:31 PM CDT Chinedu Villalobos MD ECG ORDERABLES Performing Organization Address [facility]/ZIP Co de Phone Number [facility] Care Teams District Sales Manager Relationship Specialty Start Date End Date Tracy Rodas MD PCP - General Internal Medicine 04/07/13 [place] [address] [facility] [address] [place] [address] Orthopedic Surgery 04/07/13
--- OUTSIDE RECORDS SUMMARY | 2024-07-22 07:30 | XMS_ITS | Clinical Summary ---
Author Organization [facility] Address [address] [place] [address] Care Team Providers Care Printer Slotter Operator Name Role Phone Unavailable Primary Care Provider [...]
--- OUTSIDE RECORDS SUMMARY | 2024-07-22 07:30 | XMS_ITS | Referral Summary ---
Author Organization [facility] Address [address] [facility] [place] [address] Care Team Providers Care Steel Sash Erector Name Role Phone Tracy Rodas MD Primary Care Provider [phone] Chinedu Villalobos MD Unavailable [phone] Source Comments [facility],non-owned Affiliates and Associated Physician Practices is amultiple site organization consisting of ambulatory clinics and hospital sitesin [place], [place], [place] and [place]. This disclosure is being madepursuant to the Care Everywhere program and may not contain all information available regarding this patient. Last updated 18.[facility] Encounters Date Type Department Care Team Description 07/06/2024 Refill [facility] - Allergy [address] [facility] [place] [address] Carol Freedman MD Refill Request 06/24/2024 Refill [facility] - [facility]ergy [address] [facility], [place] [address] Carol Freedman MD Refill Request from Last [...] week 11/05/2015 Active vitamin D, ergocalciferol, (DRISDOL) 40898 units capsule Take 1 (one) capsule by [...] sprayIndications: Seasonal allergic rhinitis due to pollen [place] 2 (two) sprays into each nostril 2 times daily 90 mL 3 10/19/2023 5 Discontinued mometasone (Nasonex) 50 MCG/ACT nasal sprayIndications: Seasonal allergic rhinitis due to pollen [place] 1 (one) spray into each nostril 2 [...] Visit [facility] - Allergy [address] [place] [address], [place] [address] Christiano Grey MD [address] [place] [address] DIV OF ALLERGY/[place] [address] Medical Devices Implanted Type Area Industrial Boilermaker Device Identifier Shelf Expiration Date Model / Serial / Lot Graham Bone [place] Hv Implanted:Qty: 1 on 03/15/2015 by Chinedu Villalobos MD at [facility] Right: Knee [employer] 10/18/2016 [id number] / / [id number] Titanium Femoral Implant 67.5mm Right Implanted:Qty: 1 on 03/15/2015 by Chinedu Villalobos MD at [facility] Right: Knee [employer] 10/18/2024 [id number] / / [id number] Butn Pat Arcom Wire Polyeth Xsm 28 X 8 Implanted:Qty: 1 on 03/15/2015 by Chinedu Villalobos MD at [facility] Right: Knee [employer] 01/21/2020380567 / / [id number] Stem Fem Maxim I-Beam Prim 40mm Implanted:Qty: 1 on 03/15/2015 by Chinedu Villalobos MD at [facility] Right: Knee [employer] 02/17/2025 [id number] / / [id number] Ty Tibial Prim Intlok 71mm Implanted:Qty: 1 on 03/15/2015 by Chinedu Villalobos MD at [facility] Right: Knee [employer] 10/14/2024 [id number] / / [id number] Brdg Tib Gayatri Stbl Implanted:Qty: 1 on 03/15/2015 by Chinedu Villalobos MD at [facility] Right: Knee [employer] 12/25/2019 [id number] / / [id number] Cmpnt Ptlr 28mm 1 Pg Wire Ascnt Arcm Kn Implanted:Qty: 1 on 05/24/2017 by Chinedu Villalobos MD at [facility] Left: Knee [employer] 04/23/2022016236 / / [id number] Metal Alternative Cr Femoral 65mm Implanted:Qty: 1 on 05/24/2017 by Chinedu Villalobos MD at [facility] Left: Knee [employer] 01/22/2027 [id number] / / [id number] Brng 60tgq40uv Vngrd Arcm Kn Ant Stab Implanted:Qty: 1 on 05/24/2017 by Chinedu Villalobos MD at [facility] Left: Knee [employer] 04/23/2022 [id number] / / [id number] Cmnt Bone Cblt 40gm Hvisc Strl Implanted:Qty: 1 on 05/24/2017 by Chinedu Villalobos MD at [facility] Left: Knee [employer] 09/21/2018 600-15-000 / / [id number] Stem Tib 40mm As Mx Kn Prm I Beam Implanted:Qty: 1 on 05/24/2017 by Chinedu Villalobos MD at [facility] Left: Knee [employer] 11/21/2026 [id number] / / [id number] Tray Tib 71mm As Mx Kn Intlk Ti Cr Prm Implanted:Qty: 1 on 05/24/2017 by Chinedu Villalobos MD at [facility] Left: Knee [employer] 03/24/2027 [id number] / / [id number] Procedures Procedure Name Priority Date/Time Associated Diagnosis [...] MD LAB - CHEMISTRY ANGIE DOS SANTOS [facility] Organization Address City/State/ZIP Co de Phone Number [facility] [address] [place] [phone] from Last 3 Months or Most Recently Relevant to Health Maintenance Administered Medications Advance Directives Documents on File Type Date Recorded Patient Pickle Sorter Expl anation Adv Directive/Living Will/POA 03/22/2015 3:11 PM * Full Code (Latest Code Status on File) Date Activated Date Inactivated Comments 05/24/2017 10:30 AM 05/26/2017 4:09 PM * Full Code Date Activated Date Inactivated Comments 03/15/2015 12:14 PM 03/18/2015 1:10 PM Care Teams Steel Sash Erector Relationship Specialty Start Date End Date Tracy Rodas MD PCP - General Internal Medicine 04/07/13 [place] [address] [address] Orthopedic Surgery 04/07/13
--- OUTSIDE RECORDS SUMMARY | 2024-07-22 07:30 | XMS_ITS | Clinical Summary ---
Author Organization [facility] Address [address] [facility] [place] [address] Care Team Providers Care Sweater Operator Name Role Phone Tracy Rodas MD Primary Care Provider [phone] Chinedu Villalobos MD Unavailable Source Comments [facility],non-owned Affiliates and Associated Physician Practices is amultiple site organization consisting of ambulatory clinics and hospital sitesin [place], [place], [place] and [place]. This disclosure is being madepursuant to the Care Everywhere program and may not contain all information available regarding this patient. Last updated 18.[facility] Allergies Active Allergy Reactions Criticality Noted [...] week 11/05/2015 Active vitamin D, ergocalciferol, (DRISDOL) 84007 units capsule Take 1 (one) capsule by [...] sprayIndications: Seasonal allergic rhinitis due to pollen [place] 2 (two) sprays into each nostril 2 times daily 90 mL 3 10/19/2023 5 Discontinued mometasone (Nasonex) 50 MCG/ACT nasal sprayIndications: Seasonal allergic rhinitis due to pollen [place] 1 (one) spray into each nostril 2 [...] 07/06/2024 Refill [facility] [address] [place] [phone] Carol Freedman MD Refill Request 06/24/2024 Refill [facility] [address] [place] [phone] Carol Freedman MD Refill Request from Last [...] Office Visit [facility] [address] [place] [address], [place] [address] Christiano Grey MD [address] [place] [address] OF ALLERGY/[place] [address] Health Maintenance Due Date Last Done Comments [...] this topic Medical Devices Implanted Type Area Speech Correction Assistant Device Identifier Shelf Expiration Date Model / Serial / Lot Graham Bone [place] Hv Implanted:Qty: 1 on 03/15/2015 by Chinedu Villalobos MD at [facility] Right: [employer] 10/18/2016 [id number] / / [id number] Titanium Femoral Implant 67.5mm Right Implanted:Qty: 1 on 03/15/2015 by Chinedu Villalobos MD at [facility] Right: [employer] 10/18/2024 [id number] / / [id number] Butn Pat Arcom Wire Polyeth Xsm 28 X 8 Implanted:Qty: 1 on 03/15/2015 by Chinedu Villalobos MD at [facility] Right: [employer] 01/21/2020 [id number] / / [id number] Stem Fem Maxim I-Beam Prim 40mm Implanted:Qty: 1 on 03/15/2015 by Chinedu Villalobos MD at [facility] Right: [employer] 02/17/2025 [id number] / / [id number] Ty Tibial Prim Intlok 71mm Implanted:Qty: 1 on 03/15/2015 by Chinedu Villalobos MD at [facility] Right: [employer] 10/14/2024 [id number] / / [id number] Brdg Tib Gayatri Stbl Implanted:Qty: 1 on 03/15/2015 by Chinedu Villalobos MD at [facility] Right: [employer] 12/25/2019 [id number] / / [id number] Cmpnt Ptlr 28mm 1 Pg Wire Ascnt Arcm Kn Implanted:Qty: 1 on 05/24/2017 by Chinedu Villalobos MD at [facility] Left: Knee [employer] 04/23/2022 [id number] / / [id number] Metal Alternative Cr Femoral 65mm Implanted:Qty: 1 on 05/24/2017 by Chinedu Villalobos MD at [facility] Left: [employer]nee [employer] 01/22/2027 [id number] / / [id number] Brng [id number] Vngrd Arcm Kn Ant Stab Implanted:Qty: 1 on 05/24/2017 by Chinedu Villalobos MD at [facility] Left: Knee [employer] 04/23/2022 [id number] / / [id number] Cmnt Bone Cblt 40gm Hvisc Strl Implanted:Qty: 1 on 05/24/2017 by Chinedu Villalobos MD at [facility] Left: Knee [employer] 09/21/2018 [id number] / / [id number] Stem Tib 40mm As Mx Kn Prm I Beam Implanted:Qty: 1 on 05/24/2017 by Chinedu Villalobos MD at [facility] Left: Knee [employer] 11/21/2026 [id number] / / [id number] Tray Tib 71mm As Mx Kn Intlk Ti Cr Prm Implanted:Qty: 1 on 05/24/2017 by Chinedu Villalobos MD at [facility] Left: Knee [employer] 03/24/2027 [id number] / / [id number] Procedures Procedure Name Priority Date/Time Associated Diagnosis [...] - 1.30 mg/dL 02/19/2015 12:10 PM CDT [facility] Alkaline Phosphatase 80 38 - 126 [...] - CHEMISTRY [facility] [address] [place] [address] from Last 3 Months or Most Recently Relevant to Health Maintenance Advance Directives Documents on File Type Date Recorded Patient Fagot Maker Expl anation Adv Directive/Living Will/POA 03/22/2015 3:11 PM * Full Code (Latest Code Status on File) Date Activated Date Inactivated Comments 05/24/2017 10:30 AM 05/26/2017 4:09 PM * Full Code Date Activated Date Inactivated Comments 03/15/2015 12:14 PM 03/18/2015 1:10 PM Care Teams Sweater Operator Relationship Specialty Start Date End Date Tracy Rodas MD PCP - General Internal Medicine 04/07/13 [place] [address] [place] [id number] Orthopedic Surgery 04/07/13
== END 2024-07-21 07:26 | disposition home or self-care (01) ==
LOC: ANHLAB 07-22 07:27
PROVIDERS: PCP Internal Medicine; Visit Provider Surgery
DX: D17.1 Benign lipomatous neoplasm of skin and subcutaneous tissue of trunk (principal); D17.22 Benign lipomatous neoplasm of skin and subcutaneous tissue of left arm
CPT/HCPCS: 88304

== ENCOUNTER 2024-07-21 08:04 | Day surgery (SDC) | payer MEDICARE, SELFPAY ==
[2024-07-11 09:06] VITALS: BMI 41.6
[2024-07-11 12:07] VITALS: BMI 40.4
--- NOTE | 2024-07-21 09:14 | WPDHPUPDATE1 ---
History and Physical Update Update Date/Time: 07/21/24 09:14 History and Physical has been reviewed, including an updated exam of the patient. There are NO changes in the patient's condition. Risks, benefits, and alternatives have been discussed and questions answered. Patient agrees to proceed with procedure.
[2024-07-21 09:36] VITALS: BP 173/77; PULSE 68; RESP 18; TEMP 36.5; O2SAT 100
[2024-07-21 09:53] VITALS: BP 143/73; PULSE 70; RESP 22; O2SAT 100
[2024-07-21 10:03] VITALS: BP 149/69; PULSE 73; RESP 17; O2SAT 97
[2024-07-21 10:13] VITALS: BP 141/65; PULSE 68; RESP 14; O2SAT 96
[2024-07-21 10:23] VITALS: BP 144/64; PULSE 72; RESP 20; O2SAT 98
[2024-07-21] MEDS: LIDO 1%/EPINEPHRINE 1:100,000 10 ML VIAL 30 ML INFILTRATE (10:30)
[2024-07-21] MEDS: BACITRACIN ZINC OINTMENT 0.9 GRAM PACKET 1 PACKET TOPICAL (10:32)
--- NOTE | 2024-07-21 10:37 | W.PM.PROC2 ---
Procedure Note - Detailed Date of Procedure 07/21/24 Pre-op Diagnosis Left Shoulder and Back Mass Post-op Diagnosis Same Procedure Performed 1. Excision of 5.5 cm left shoulder mass 2. Excision of 4 cm lower back mass Surgeon Bimal Murray, DO Anesthesia Local (1% lidocaine with epinephrine) Indications This is a 68-year-old woman who presented with a lower midback mass and left shoulder mass that had been present for years. She states that both have gradually increased in size over time are causing her some discomfort. 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 Discussions were made with the patient about treatment options and decision was made to proceed with excision left shoulder mass and lower midback mass. 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 No other abnormalities were noted. Masses were completely excised and sent to the lab for pathology. Description of Procedure Procedure as well as risks, benefits, and alternatives were discussed with the patient. Written consent was obtained and placed in chart prior to procedure. Patient was brought back to surgical suite. Time-out was done to confirm patient and procedure. She was placed in right lateral decubitus position on the operating table. Her back and shoulder area were prepped and draped in sterile fashion using chlorhexidine prep. 1% lidocaine with epinephrine was infiltrated locally around each mass. A 4 cm incision was made directly over the left shoulder mass using a 15 blade scalpel. Electrocautery was used for hemostasis and for dissection through the subcutaneous tissue. The mass was identified and carefully dissected free from the surrounding subcutaneous attachments using electrocautery. The mass was completely excised intact and sent to the lab for pathology. The mass measured 5.5 cm x 4 cm. The wound bed was then inspected. Hemostasis was achieved with electrocautery. The skin edges were then reapproximated using 3-0 nylon simple interrupted sutures. I then moved my attention over to the lower back mass. A 4 cm vertical incision was made directly over the mass using a 15 blade scalpel. Electrocautery was used for hemostasis and for dissection through subcutaneous attachments. The mass was identified carefully dissected free from the surrounding subcutaneous attachments using electrocautery. It was excised completely and sent to the lab for pathology. Mass measured 4.5 cm x 3 cm. The wound bed was then inspected. Hemostasis was achieved with electrocautery. No other abnormalities were noted. The skin edges were then reapproximated using 3-0 nylon simple interrupted sutures. Bacitracin ointment was then applied over each of the incisions followed by 4 x 4 gauze and tape. The patient was then transferred to recovery. Estimated Blood Loss 5 Pathology Yes (Left shoulder mass and lower back mass) Complications No immediate complications Condition Stable Disposition Same day [facility] Billing Surgery - Charge Forward: Surgery Billing
[2024-07-21 10:45] VITALS: BP 151/63; PULSE 64; RESP 15; O2SAT 100
== END 2024-07-21 11:05 | disposition home or self-care (01) ==
PROVIDERS: PCP Internal Medicine; Visit Provider Surgery
PROC: (CPT 24071; principal; 2024-07-21 10:00)
PROC: (CPT 24071; 2024-07-21 10:00)
DX: R22.30 Localized swelling, mass and lump, unspecified upper limb (principal); R22.2 Localized swelling, mass and lump, trunk
CPT/HCPCS: 24071; 21931

== ENCOUNTER 2024-10-15 08:46 | Outpatient (CLI) | payer MEDICARE, SELFPAY ==
--- OUTSIDE RECORDS SUMMARY | 2024-10-15 08:51 | XMS_ITS | Clinical Summary ---
Author Organization [facility] Address [address] [facility] [place] [address] Care Team Providers Care Broom Maker Name Role Phone Tracy Rodas MD Primary Care Provider [phone] Chinedu Villalobos MD Unavailable [phone] Source Comments [facility],non-owned Affiliates and Associated Physician Practices is amultiple site organization consisting of ambulatory clinics and hospital sitesin [place], [place], [place] and [place]. This disclosure is being madepursuant to the Care Everywhere program and may not contain all information available regarding this patient. Last updated 18.[facility] Allergies Active Allergy Reactions Criticality Noted [...] document. Alwaysverify current medications with the patient. Cyanocobalamin (VITAMIN B-12 PO) Take 1,000 mcg by mouth once daily Active Emollient (CERAVE) CREA by Apply externally route once daily Active losartan (COZAAR) 100 MG tablet Take 1 (one) tablet by mouth once daily 1 6 Active estradiol (ESTRACE) 0.1 MG/GM vaginal cream Insert 0.5 g into the vagina Three times a week 6 Active vitamin D, ergocalciferol, (DRISDOL) 99831 units capsule Take 1 (one) capsule by mouth every 14 days 1 9 Active nebivolol (Bystolic) 10 MG tablet Take 1 (one) tablet by mouth once daily Active ciprofloxacin (Cipro) 250 MG tablet Take 1 (one) tablet by mouth 2 times daily Active albuterol HFA (Proventil; Ventolin; Proair) 108 (90 Base) MCG/ACT inhalerIndication s:Moderate persistent asthma without complication (HCC) Inhale 2 (two) puffs by mouth every 4 hours as needed for Wheezing 18 g 5 4 Active albuterol (Proventil;Ventol in) (2.5 MG/3ML) 0.083% nebulizer solutionIndicatio ns:Moderate persistent asthma without complication (HCC) Inhale 2.5 (two and one-half) mg by mouth every 4 hours as needed for Shortness of Breath 75 mL 4 4 Active budesonide-formot yovani (Symbicort) 160-4.5 MCG/ACT inhalerIndication s:Moderate persistent asthma without complication (HCC) Inhale 2 (two) puffs by mouth every 12 hours 30.6 g 11 4 Active esomeprazole (NexIUM) 40 MG capsuleIndication s:Gastroesophagea l reflux disease, unspecified whether esophagitis present Take 1 (one) capsule by mouth daily before breakfast 90 capsule 3 4 Active mometasone (Nasonex) 50 MCG/ACT nasal sprayIndications: Seasonal allergic rhinitis due to pollen INSTILL 1 SPRAY INTO EACH NOSTRIL TWICE A DAY 17 g 3 5 Active Azelastine HCl 137 MCG/SPRAY SOLNIndications:S easonal allergic rhinitis due to pollen SPRAY 2 (TWO) SPRAYS INTO EACH NOSTRIL 2 TIMES DAILY 30 mL 5 5 Active Active Problems Problem Noted Date Diagnosed [...] IMO Updt Gastroesophageal reflux disease 08/29/2012 Immunizations Immunization Administration Dates Next Due Covid Pfizer primary [...] Recorded Patient Health Questionnaire-2 Score 0 10/19/2023 Comments No Sex and Gender Information Value Date Recorded Sex Assigned at Not on file Legal Sex Female 1:48 PM CDT Gender Identity Not on file [...] 11:26 AM CDT Height 167.6 cm (5' 6) 10/19/2023 11:26 AM CDT Body Mass Index 42.61 10/19/2023 11:26 AM CDT Plan of Treatment Upcoming Encounters Date Type Department Care Team (Late st Contact Info) Description 10/16/2024 10:30 AM CDT Office Visit [facility] [address] [place] [address], [place] [address] Chritsiano Grey MD [address] [place] [address] OF ALLERGY/[place] [address] Health Maintenance Due Date Last Done Comments [...] 2024 01/25/2022, 02/14/2021, 08/06/2020, Additional history exists DEPRESSION SCREENING 05/21/2024 10/19/2023, 10/20/19 23 MEDICARE AWV CALENDAR YEAR 2024 INFLUENZA VACCINE (Season Ended) 2025 02/20/2022, 02/14/2021, 02/19/2019, Additional history exists HEPATITIS B VACCINE Aged Out No longe r eligible based on patient's age to complete this topic HIB VACCINE Aged Out No longer eligi ble based on patient's age to complete this topic HPV VACCINE Aged Out No longer eligi ble based on patient's age to complete this topic MENINGOCOCCAL (Group B) VACCINE SHARED DECISION-MAKING Aged Out No longer eligible based on patient's age to complete this topic MENINGOCOCCAL GROUPS A/C/Y/W VACCINE Aged Out No longer eligible based on patient's age to complete this topic Medical Devices Implanted Type Area Ventilating Equipment Installer Device Identifier Shelf Expiration Date Model / Serial / Lot Graham Bone [place] Hv Implanted:Qty: 1 on 03/15/2015 by Chinedu Villalobos MD at [facility] Right: Knee [employer] 10/18/2016 [id number] / / [id number] Titanium Femoral Implant 67.5mm Right Implanted:Qty: 1 on 03/15/2015 by Chinedu Villalobos MD at [facility] Right: [employer] 10/18/2024 [id number] / / [id number] Butn Pat Arcom Wire Polyeth Xsm 28 X 8 Implanted:Qty: 1 on 03/15/2015 by Chinedu Villalobos MD at [facility] Right: [employer] 01/21/2020 [id number] / / [id number] Stem Fem Maxim I-Beam Prim 40mm Implanted:Qty: 1 on 03/15/2015 by Chinedu Villalobos MD at [facility] Right: [employer] 02/17/2025 [id number] / / [id number] Ty Tibial Prim Intlok 71mm Implanted:Qty: 1 on 03/15/2015 by Chinedu Villalobos MD at [facility] Right: [employer] 10/14/2024 [id number] / / [id number] Brdg Tib Gayatri Stbl Implanted:Qty: 1 on 03/15/2015 by Chinedu Villalobos MD at [facility] Right: [employer] 12/25/2019 [id number] / / [id number] Cmpnt Ptlr 28mm 1 Pg Wire Ascnt Arcm Kn Implanted:Qty: 1 on 05/24/2017 by Chinedu Villalobos MD at [facility] Left: Knee D[employer] 04/23/2022 [id number] / / [id number] Metal Alternative Cr Femoral 65mm Implanted:Qty: 1 on 05/24/2017 by Chinedu Villalobos MD at [facility] Left: [employer]nee [employer] 01/22/2027 [id number] / / [id number] Brng [id number] Vngrd Arcm Kn Ant Stab Implanted:Qty: 1 on 05/24/2017 by Chinedu Villalobos MD at [facility] Left: Knee [employer] 04/23/2022 [id number] / / [id number] Cmnt Bone Cblt 40gm Hvisc Strl Implanted:Qty: 1 on 05/24/2017 by Chinedu Villalobos MD at [facility] Left: Knee [employer] 09/21/2018 [id number] / / [id number] Stem Tib 40mm As Mx Kn Prm I Beam Implanted:Qty: 1 on 05/24/2017 by Chinedu Villalobos MD at [facility] Left: Knee [employer] 11/21/2026 [id number] / / [id number] Tray Tib 71mm As Mx Kn Intlk Ti Cr Prm Implanted:Qty: 1 on 05/24/2017 by Chinedu Villalobos MD at [facility] Left: Knee [employer] 03/24/2027 [id number] / / [id number] Procedures Procedure Name Priority Date/Time Associated Diagnosis [...] - 5.1 mmol/L 02/19/2015 12:10 PM CDT [facility] Chloride 103 98 - 107 mmol/L 02/19/2015 12:10 PM CDT [facility] CO2 26 22 - 31 mmol/L 02/19/2015 12:10 PM CDT [facility] Calcium 9.5 8.5 - 10.1 mg/dL 02/19/2015 12:10 PM CDT [facility] Anion Gap 9 5 - 20 mmol/L 02/19/2015 12:10 PM CDT [facility] BUN 17 7 - 21 mg/dL 02/19/2015 12:10 PM CDT [facility] Creatinine 1.10 0.50 - 1.30 mg/dL 02/19/2015 12:10 PM CDT [facility] Alkaline Phosphatase 80 38 - 126 U/L 02/19/2015 12:10 PM CDT [facility] ALT 33 12 - 78 U/L 02/19/2015 12:10 PM CDT [facility] AST 17 5 - 40 U/L 02/19/2015 12:10 PM CDT [facility] Protein Total 7.5 6.4 - 8.2 gm/dL 02/19/2015 12:10 PM CDT [facility] Albumin 4.0 3.4 - 5.0 gm/dL 02/19/2015 12:10 PM CDT [facility] Bilirubin Total 0.6 0.2 - 1.0 mg/dL 02/19/2015 12:10 PM CDT [facility] eGFR by MDRD 51(L) >60 mL/min/1.7 3m2 02/19/2015 12:10 PM CDT [facility] eGFR by MDRD >60 >60 mL/min/1.7 3m2 02/19/2015 12:10 PM CDT [facility] Blood BLOOD SPECIMEN / Unknown 02/19/2015 11:39 AM CDT 02/19/2015 11:48 AM CDT us Chinedu Villalobos MD LAB - CHEMISTRY ORDERABLES Fi nal Result [facility] [address] [place] [address] from Last 3 Months or Most Recently Relevant to Health Maintenance Insurance [place] [address] [facility] MANAGED [place]IC[place] [address] Advance Directives Documents on File Type Date Recorded Patient Vegetable Buncher Expl anation Adv Directive/Living Will/POA 03/22/2015 3:11 PM * Full Code (Latest Code Status on File) Date Activated Date Inactivated Comments 05/24/2017 10:30 AM 05/26/2017 4:09 PM * Full Code Date Activated Date Inactivated Comments 03/15/2015 12:14 PM 03/18/2015 1:10 PM Care Teams Broom Maker Relationship Specialty Start Date End Date Tracy Rodas MD PCP - General Internal Medicine 04/07/13 [place] [address] [address] Orthopedic Surgery 04/07/13
--- OUTSIDE RECORDS SUMMARY | 2024-10-15 08:51 | XMS_ITS | Encounter Summary ---
Author Organization [facility] Address [address] [facility] [place] [address] Care Team Providers Care Wastewater Manager Name Role Phone Tracy Rodas MD Primary Care Provider Chinedu Villalobos MD Unavailable [phone] Encounter Details Date Type Department Care Team (Late st Contact Info) Description 07/22/2020 Telephone [facility] [address] [place] [address] Livan Eckert MD [address] [facility] [address] [place] [address] Social History Tobacco Use Types Packs/Day Years Used Date Smoking Tobacco: Never Smokeless Tobacco: Never Alcohol Use Standard Drinks/Week Comments Yes 0 (1 standard drink = 0.6 oz pur e alcohol) social Comments No Sex and Gender Information Value Date Recorded Sex Assigned at Not on file Legal Sex Female 1:48 PM CDT Gender Identity Not on file Sexual Orientation Not on file documented as of this encounter Functional Status * Is person deaf or have serious hearing difficulty? Answer Date of Assessment Author No 05/24/2017 10:30 AM Elisha Cruz RN * Is person blind or have serious difficulty seeing? Answer Date of Assessment Author No 05/24/2017 10:30 AM Elisha Cruz RN * Does person have serious difficulty walking/climbing stairs? Answer Date of Assessment Author No 05/24/2017 10:30 AM Elisha Cruz RN * Does person have difficulty dressing/bathing? Answer Date of Assessment Author No 05/24/2017 10:30 AM Elisha Cruz RN * Does person have difficulty doing errands alone? Answer Date of Assessment Author No 05/24/2017 10:30 AM Elisha Cruz RN documented as of this encounter Mental Status * Does person have difficulty concentrating/remembering/making decisions? Answer Entry Date Author No 05/24/2017 10:30 AM Elisha Cruz RN documented in this encounter Miscellaneous Notes * Telephone Encounter - Catherine Delores - 07/22/2020 2:24 PM CST Current Provider name: Dr. Julio Cesar Eckert (Matilda( Reason for call: Ms. Delores Melchor is calling in to schedule her 6 mnth appt. She's called in before and apparently schedulers were looking at avails for BABAR. Her last 2 appts were VID w/ Matilda. Babar's calendar is not there. My notes say he should have avails ,September, October. Ms. Melchor6 mnth appt will be November. She wants to come in but there is no template to make sure her PFT is done. WHat's Duc' Status going to be. Patient Call Back number: [phone] DRIVER documented in this encounter Plan of Treatment Upcoming Encounters Date Type Department Care Team (Late st Contact Info) Description 10/16/2024 10:30 AM CDT Office Visit [facility] [address] [place] [address], [place] [address] Christiano Grey MD [address] [place] [address] OF [place]ERGY/[place] [address] documented as of this encounter Visit Diagnoses Not on filedocumented in this encounter Care Teams Wastewater Manager Relationship Specialty Start Date End Date Tracy Rodas MD PCP - General Internal Medicine 04/07/13 [place] [address] [address] Orthopedic Surgery 04/07/13 documented as of this encounter
--- OUTSIDE RECORDS SUMMARY | 2024-10-15 08:51 | XMS_ITS | Encounter Summary ---
Author Organization [facility] Address [address] [place] [address] Care Team Providers Care Weaver [employer] Name Role Phone Tracy Rodas MD Primary Care Provider [phone] Chinedu Villalobos MD Unavailable [phone] Encounter Details Date Type Department Care Team (Late st Contact Info) Description 04/03/2015 Therapy Visit [facility] [address] [address] [place] [address] [address] Social History Tobacco Use Types [...] difficulty? Answer Date of Assessment Author No 03/15/2015 12:30 PM NEVAT Mai Fernandez RN * Is person blind or have serious difficulty seeing? Answer Date of Assessment Author No 03/15/2015 12:30 PM NEVAT Mai Fernandez RN * Does person have serious difficulty walking/climbing stairs? Answer Date of Assessment Author No 03/15/2015 12:30 PM CDT Mai Fernandez RN * Does person have difficulty dressing/bathing? Answer Date of Assessment Author No 03/15/2015 12:30 PM CDT Mai Fernandez RN * Does person have difficulty doing errands alone? Answer Date of Assessment Author No 03/15/2015 7:42 AM CDT Nicky Molina RN documented as of this encounter Mental Status * Does person have difficulty concentrating/remembering/making decisions? Answer Entry Date Author No 03/15/2015 12:30 PM CDT Mai Fernandez RN documented in this encounter Plan of Treatment Upcoming Encounters Date Type Department Care Team (Late st Contact Info) Description 10/16/2024 10:30 AM CDT Office Visit [facility] [address] [place] [address], [place] [address] Christiano Grey MD [address] [place] [address] DIV OF ALLERGY/[place] [address] documented as of this encounter Visit Diagnoses Not on filedocumented in this encounter Care Teams [employer] Relationship Specialty Start Date End Date Tracy Rodas MD PCP - General Internal Medicine 04/07/13 [place] [address] [address] Orthopedic Surgery 04/07/13 documented as of this encounter
--- OUTSIDE RECORDS SUMMARY | 2024-10-15 08:51 | XMS_ITS | Referral Summary ---
Author Organization [facility] [address] [place] [address] Care Team Providers Care Management Aide Name Role Phone Tracy Rodas MD Primary Care Provider [phone] Allergies Active Allergy Reactions Criticality Noted Date [...] on file Legal Sex Female 12:41 AM LUMBER CARRIER Gender Identity Female 09/30/2020 11:24 AM CDT [...] 9:54 AM CDT Height 167.6 cm (5' 6) 09/12/2022 9:54 AM CDT Body Mass Index 40.35 09/12/2022 9:54 AM CDT Plan of Treatment Not on file Insurance [facility] MEDICARE ADVANTAGE [facility]IC[facility] Address: [address] [address] [place] [address] [employer] SIG [id number] [place] [address] Advance Directives For more information, please contact: [phone] Documents on File Type Date Recorded Patient Biometrics Technician Expl anation ADVANCE DIRECTIVE 09/27/2020 12:00 AM DARREN Newman OF RV SERVICER FINANCIAL/MEDICAL Care Teams Management Aide Relationship Specialty Start Date End Date Tracy Rodas MD [address] [place] [address] PCP - General Internal Medicine 07/15/20
--- OUTSIDE RECORDS SUMMARY | 2024-10-15 08:51 | XMS_ITS | Clinical Summary ---
Author Organization [facility] [address] [place] Address [address] [place] [address] Care Team Providers Care Irrigationist Designer Name Role Phone Tracy Rodas MD Primary Care Provider [phone] Allergies Active Allergy Reactions Criticality Noted Date [...] on file Legal Sex Female 12:41 AM TERMINAL PRESS OPERATOR Gender Identity Female 09/30/2020 11:24 AM CDT [...] 02/22/2024, , 02/14/2021, Additional [place] [address] [facility] [place] [address] [employer] [place] [id number] Advance Directives For more information, please contact: [phone] Documents on File Type Date Recorded Patient Fire Supervisor Expl anation ADVANCE DIRECTIVE 09/27/2020 12:00 AM DARREN R OF CHAIN SALES REPRESENTATIVE FINANCIAL/MEDICAL Care Teams Irrigationist Designer Relationship Specialty Start Date End Date Tracy Rodas MD [address] [place] [address] PCP - General Internal Medicine 07/15/20
--- OUTSIDE RECORDS SUMMARY | 2024-10-15 08:51 | XMS_ITS | Continuity of Care Document ---
Author Organization [facility] Address [address] [facility] [address] [place] [address] Phone Care Team Providers Care Geek Squad Manager Name Role Phone Unavailable Unavailable Unavailable Allergies, Adverse Reactions, Alerts Substance Reaction Status Criticality Sulfa (Sulfonamide Antibiotics) Active No Information Penicillins Active No Information celecoxib Active No Information Medications Medication Instructions Dosage Effective Dates (start - stop) Status Comments Flovent HFA 110 mcg/actuation aerosol inhaler inhale 1 puff by inhalation route 2 times every day - Active Nasonex 50 mcg/actuation [place] spray 2 spray by intranasal route every [...] Providers Copied on Encounter Offic/outpt E&m [facility], [address], [place], [place], [id number], [place] tel:[phone] [facility] asthma (chief complaint) Mild intermittent asthma with acute exacerbation 9 No Information Family History Family Member Type Diagnosis Age At Onset No Information Payers Payer name Insurance type Covered libertarian ID Neal manning(s) [facility] [id number] Social History Type Description Quantity Date Captured [...] Longer Active Instructions Date Instruction Additional Infor aruna No Information Assessments Type Assessment Date assessment Mild intermittent asthma with ac tawnya exacerbation Mental Status Date Cognitive Assessment Orientation - [place] ed to time, place, person, situation. Patient Care Teams Name Effective Dates (start - stop) Status Members No Information
--- OUTSIDE RECORDS SUMMARY | 2024-10-15 08:51 | XMS_ITS | Encounter Summary ---
Author Organization [facility] Address [address] [facility] [place] [address] Care Team Providers Care Nurses' Association Executive Director Name Role Phone Tracy Rodas MD Primary Care Provider [phone] Chinedu Villalobos MD Unavailable Encounter Details Date Type Department Care Team (Late st Contact Info) Description 06/15/[address] [facility] Orthopedics [address] [address] [place] [address] [address] Social History Tobacco Use Types [...] Office Visit [facility] - Allergy [address] [place] [address], [place] [address] Christiano Grey MD [address] [place] [address] DIV OF ALLERGY/[place] [address] documented as of this encounter Visit Diagnoses Not on filedocumented in this encounter Care Teams Nurses' Association Executive Director Relationship Specialty Start Date End Date Tracy Rodas MD PCP - General Internal Medicine 04/07/13 [place] [address] [address] Orthopedic Surgery 04/07/13 documented as of this encounter
[2024-10-15 10:13] LABS: Anion Gap 5 mmol/L (4-12); Blood Urea Nitrogen 21 mg/dL (7-17); Carbon Dioxide 26 mmol/L (22-30); Chloride 103 mmol/L (98-107); Estimated Glomerular Filt Rate 44; Glucose 90 mg/dL (65-110); Osmolality Calculated 281 mOsm/kg (285-295); Potassium 4.5 mmol/L (3.4-5.0); Sodium 134 mmol/L (137-145)
== END 2024-10-15 08:47 | disposition home or self-care (01) ==
LOC: CHSTREATRM 08:48 → CHSLAB 08:51
PROVIDERS: PCP Internal Medicine; Visit Provider Internal Medicine
DX: E86.0 Dehydration (principal)
CPT/HCPCS: 36415; 80048

== ENCOUNTER 2024-12-09 11:12 | Emergency (ER) | payer MEDICARE, SELFPAY ==
[2024-12-09 11:12] VITALS: BP 181/106; PULSE 75; RESP 20; TEMP 36.6; O2SAT 95
--- OUTSIDE RECORDS SUMMARY | 2024-12-09 11:18 | XMS_ITS | Encounter Summary ---
Author Organization [facility] Address [address] [facility] [place] [address] Care Team Providers Care Mattress Filling Machine Tender Name Role Phone Tracy Rodas MD Primary Care Provider [phone] Chinedu Villalobos MD Unavailable [phone] Encounter Details Date Type Department Care Team (Late st Contact Info) Description 04/03/2015 Therapy Visit [facility] Orthopedics [address] [address] [place] [address] [address] Social History Tobacco Use Types [...] of Assessment Author No 03/15/2015 7:42 AM NEVAT Nicky Molina RN documented as of this encounter Mental Status * Does person have difficulty concentrating/remembering/making decisions? Answer Entry Date Author No 03/15/2015 12:30 PM NEVAT Mai Fernandez RN documented in this encounter Plan of Treatment Upcoming Encounters Date Type Department Care Team (Late st Contact Info) Description 04/15/2025 1:30 PM SUPERVISOR ADVICE Office Visit [facility]ergy [address] [place] [address], [place] [address] Christiano Grey MD [address] [place] [address] DIV OF [place]ERGY/[place] [address] documented as of this encounter Visit Diagnoses Not on filedocumented in this encounter Care Teams Mattress Filling Machine Tender Relationship Specialty Start Date End Date Tracy Rodas MD PCP - General Internal Medicine 04/07/13 [place] [address] [facility] [address] [place] [address] Orthopedic Surgery 04/07/13 documented as of this encounter
--- OUTSIDE RECORDS SUMMARY | 2024-12-09 11:18 | XMS_ITS | Referral Summary ---
Author Organization [place] [address] [place] Address [address] [place] [address] Care Team Providers Care Career Services Coordinator Name Role Phone Tracy Rodas MD Primary Care Provider [phone] Allergies Active Allergy Reactions Criticality Noted Date [...] on file Legal Sex Female 12:41 AM CLASSROOM COORDINATOR Gender Identity Female 09/30/2020 11:24 AM CDT [...] Plan of Treatment Not on file Insurance [facility] MEDICARE ADVANTAGE [employer] SIG [id number] [place] [address] Advance Directives For more information, please contact: [phone] Documents on File Type Date Recorded Patient Pharmacy Clerk Expl anation ADVANCE DIRECTIVE 09/27/2020 12:00 AM DARREN Newman OF SURFACE PLATE FINISHER FINANCIAL/MEDICAL Care Teams Career Services Coordinator Relationship Specialty Start Date End Date Tracy Rodas MD [address] [place] [address] PCP - General Internal Medicine 07/15/20
--- OUTSIDE RECORDS SUMMARY | 2024-12-09 11:18 | XMS_ITS | Clinical Summary ---
Author Organization [facility] Address [address] [facility] [place] [address] Care Team Providers Care Casting Tester Name Role Phone Tracy Rodas MD Primary Care Provider [phone] Chinedu Villalobos MD Unavailable [phone] Source Comments [facility],non-owned Affiliates and Associated Physician Practices is amultiple site organization consisting of ambulatory clinics and hospital sitesin [place], [place], [place] and [place]. This disclosure is being madepursuant to the Care Everywhere program and may not contain all information available regarding this patient. Last updated 18.[facility] Allergies Active Allergy Reactions Criticality Noted [...] week 6 Active vitamin D, ergocalciferol, (DRISDOL) 74356 units capsule Take 1 (one) capsule by mouth every 14 days 1 9 Active nebivolol (Bystolic) 10 MG tablet Take 1 (one) tablet by mouth once daily Active ciprofloxacin (Cipro) 250 MG tablet Take 1 (one) tablet by mouth 2 times daily Active budesonide-formot yovani (Symbicort) 160-4.5 MCG/ACT inhalerIndication [...] sprayIndications: Seasonal allergic rhinitis due to pollen [place] 1 (one) spray into each nostril 2 times daily 51 g 3 5 Active Azelastine HCl 137 MCG/SPRAY SOLNIndications:S easonal allergic rhinitis due to pollen [place] 2 sprays into each nostril 2 times daily 90 mL 3 5 Active omeprazole (PriLOSEC) 20 MG capsule Take 2 (two) capsules by mouth daily before breakfast 2 20 mg tablets every morning 180 capsule 3 5 Active albuterol HFA (Proventil; Ventolin; Proair) 108 (90 Base) MCG/ACT inhalerIndication s:Moderate persistent asthma without complication (HCC) Inhale 2 (two) puffs by mouth every 6 hours as needed for Wheezing, Cough or Shortness of Breath 54 g 3 5 Active triamcinolone acetonide (Kenalog) 0.1 % ointment Apply to affected area 2 times daily 90 g 2 5 Active albuterol (Proventil;Ventol in) (2.5 MG/3ML) 0.083% nebulizer solutionIndicatio ns:Moderate persistent asthma without complication (HCC) Inhale 2.5 (two and one-half) mg by mouth every 6 hours as needed for Shortness of Breath 75 mL 3 5 Active Active Problems Problem Noted Date [...] Encounters Date Type Department Care Team Description 12/08/2024 Lab Requisition [facility] [address] [facility], [place] [address] Victoria Rendon DO 10/16/2024 10:30 AM CDT Office Visit [facility] [address] [facility], [place] [address] Christiano Grey MD Moderate persistent asthma without complication (HCC) (Primary Dx); Seasonal allergic rhinitis due to pollen; Vocal cord dysfunction; Gastroesophageal reflux disease, unspecified whether esophagitis present; Atopic dermatitis, unspecified type 10/16/2024 Travel from Last 3 Months Immunizations Immunization Administration Dates Next Due Covid [...] Sign Reading Time Taken Comments Blood Pressure 161/80 10/16/2024 10:21 AM CDT Pulse 57 10/16/2024 10:21 AM CDT Temperature 36.5 C (97.7 F) 10/16/2024 10:21 AM CDT Respiratory Rate 20 10/16/2024 10:21 AM CDT Oxygen Saturation 97% 10/16/2024 10:21 AM CDT Inhaled Oxygen Concentration - - Weight 117 kg (258 lb) 10/16/2024 10:21 AM CDT Height 167.6 cm (5' 6) 10/16/2024 10:21 AM CDT Body Mass Index 41.64 10/16/2024 10:21 AM CDT Plan of Treatment Upcoming Encounters Date Type Department Care Team (Late st Contact Info) Description 04/15/2025 1:30 PM MANUFACTURING HELPER Office Visit [facility] [address] [place] [address], [place] [address] Christiano Grey MD [address] [place] [address] OF [place]ERGY/[place] [address] Health Maintenance Due Date Last Done Comments [...] MEDICARE AWV CALENDAR YEAR 2024 INFLUENZA VACCINE (#1) 2025 , 02/14/2021, 02/19/2019, Additional history exists HEPATITIS B [...] this topic Medical Devices Implanted Type Area Field Specialist Device Identifier Shelf Expiration Date Model / Serial / Lot Graham Bone [place] Hv Implanted:Qty: 1 on 03/15/2015 by Chinedu Villalobos MD at [facility] Right: Knee [employer] 10/18/2016 [id number] / / [id number] Titanium Femoral Implant 67.5mm Right Implanted:Qty: 1 on 03/15/2015 by Chinedu Villalobos MD at [facility] Right: Knee [employer] 10/18/2024 [id number] / / [id number] Butn Pat Arcom Wire Polyeth Xsm 28 X 8 Implanted:Qty: 1 on 03/15/2015 by Chinedu Villalobos MD at [facility] Right: Knee [employer] 01/21/[id number] / / [id number] Stem Fem Maxim I-Beam Prim 40mm Implanted:Qty: 1 on 03/15/2015 by Chinedu Villalobos MD at [facility] Right: Knee [employer] 02/17/2025 [id number] / / [id number] Ty Tibial Prim Intlok 71mm Implanted:Qty: 1 on 03/15/2015 by Chinedu Villalobos MD at [facility] Right: Knee [employer] 10/14/2024 [id number] / / [id number] Brdg Tib Gayatri Stbl Implanted:Qty: 1 on 03/15/2015 by Chinedu Villalobos MD at [facility] Right: Knee [employer] 12/25/2019 [id number] / / [id number] Cmpnt Ptlr 28mm 1 Pg Wire Ascnt Arcm Kn Implanted:Qty: 1 on 05/24/2017 by Chinedu Villalobos MD at [facility] Left: Knee Deric [employer] 04/23/[id number] / / [id number] Metal Alternative Cr Femoral 65mm Implanted:Qty: 1 on 05/24/2017 by Chinedu Villalobos MD at [facility] Left: Knee [employer] 01/22/2027 [id number] / / [id number] Brng 92ldw95zl Vngrd Arcm Kn Ant Stab Implanted:Qty: 1 on 05/24/2017 by Chinedu Villalobos MD at [facility] Left: Knee Deric [employer] 04/23/2022 [id number] / / [id number] Cmnt Bone Cblt 40gm Hvisc Strl Implanted:Qty: 1 on 05/24/2017 by Chinedu Villalobos MD at [facility] Left: Knee [facility] 09/21/2018 [id number] / / [id number] Stem Tib 40mm As Mx Kn Prm I Beam Implanted:Qty: 1 on 05/24/2017 by Chinedu Villalobos MD at [facility] Left: Knee Deric [employer] 11/21/2026 [id number] / / [id number] Tray Tib 71mm As Mx Kn Intlk Ti Cr Prm Implanted:Qty: 1 on 05/24/2017 by Chinedu Villalobos MD at [facility] Left: Knee Deric [employer] 03/24/2027 [id number] / / [id number] Procedures Procedure Name Priority Date/Time Associated Diagnosis [...] - 1.30 mg/dL 02/19/2015 12:10 PM CDT [facility] Alkaline Phosphatase 80 38 - 126 [...] CDT Chinedu Villalobos MD LAB - CHEMISTRY ORDERABLES Fi nal Result [facility] [address] [place] [address] from Last 3 Months or Most Recently Relevant to Health Maintenance [place] [address] [employer] [place] [address] Advance Directives Documents on File Type Date Recorded Patient Tiger Machine Operator Expl anation Adv Directive/Living Will/POA 03/22/2015 3:11 PM * Full Code (Latest Code Status on File) Date Activated Date Inactivated Comments 05/24/2017 10:30 AM 05/26/2017 4:09 PM * Full Code Date Activated Date Inactivated Comments 03/15/2015 12:14 PM 03/18/2015 1:10 PM Care Teams Casting Tester Relationship Specialty Start Date End Date Tracy Rodas MD PCP - General Internal Medicine 04/07/13 [place] [address] [address] Orthopedic Surgery 04/07/13
--- OUTSIDE RECORDS SUMMARY | 2024-12-09 11:18 | XMS_ITS | Encounter Summary ---
Author Organization [facility] Address [address] [facility] [place] [address] Care Team Providers Care Asphalt Spreader Operator Name Role Phone Tracy Rodas MD Primary Care Provider [phone] Chinedu Villalobos MD Unavailable [phone] Encounter Details Date Type Department Care Team (Late st Contact Info) Description 12/08/2024 Lab Requisition [facility] [address] [facility], [place] [address] Victoria Rendon DO [address] [facility] 3 [place] [address] Social History Tobacco Use Types Packs/Day Years [...] Elisha Cruz RN documented in this encounter Plan of Treatment Upcoming Encounters Date Type Department Care Team (Late st Contact Info) Description 04/15/2025 1:30 PM KNOT TYING OPERATOR Office Visit [facility] [address] [place] [address], [place] [address] Christiano Grey MD [address] [place] [address] OF ALLERGY/[place] [address] Scheduled Orders Name Type Priority Associated Diagnoses Orde r Schedule DERMATOPATHOLOGY Pathology Cytology Routine Ordered: 12/08/2024 documented as of this encounter Visit Diagnoses Not on filedocumented in this encounter Care Teams Asphalt Spreader Operator Relationship Specialty Start Date End Date Tracy Rodas MD PCP - General Internal Medicine 04/07/13 [place] [address] [address] Orthopedic Surgery 04/07/13 documented as of this encounter
--- OUTSIDE RECORDS SUMMARY | 2024-12-09 11:18 | XMS_ITS | Clinical Summary ---
Author Organization [facility] Address [address] [place] [address] Care Team Providers Care Welding Teacher Name Role Phone Unavailable Primary Care Provider [...] 1 - Tdap) 1976 Mammogram Screening 1997 Pneumococcal Vaccine: 50+ Ye ars (1 of 1 - PCV) 08/29/2007 Zoster Vaccines (1 of 2) 08/29/2007 Dexa Scan (General) 2022 COVID-19 Vaccine ( - 2023-2 5 season) 2024 RSV Immunization or 60+ Years (1 [...]
--- OUTSIDE RECORDS SUMMARY | 2024-12-09 11:18 | XMS_ITS | Encounter Summary ---
Author Organization [facility] Address [address] [facility] [place] [address] Care Team Providers Care Route Delivery Supervisor Name Role Phone Tracy Rodas MD Primary Care Provider [phone] Chinedu Villalobos MD Unavailable Encounter Details Date Type Department Care Team (Late st Contact Info) Description 06/15/2015 Therapy Visit [facility] Orthopedics [address] [address] [place] [address] [address] Social History Tobacco Use Types [...] st Contact Info) Description 04/15/2025 1:30 PM RELIEF MASTER Office Visit [facility] Allergy [address] [place] [address], [place] [address] Christiano Grey MD [address] [place] [address] DIV [place]ERGY/[place] [address] documented as of this encounter Visit Diagnoses Not on filedocumented in this encounter Care Teams Route Delivery Supervisor Relationship Specialty Start Date End Date Tracy Rodas MD PCP - General Internal Medicine 04/07/13 [place] [address] [facility] [address] [place] [address] Orthopedic Surgery 04/07/13 documented as of this encounter
--- OUTSIDE RECORDS SUMMARY | 2024-12-09 11:18 | XMS_ITS | Encounter Summary ---
Author Organization [facility] Address [address] [facility] [place] [address] Care Team Providers Care Marine Fire Fighter Name Role Phone Tracy Rodas MD Primary Care Provider [phone] Chinedu Villalobos MD Unavailable [phone] Encounter Details Date Type Department Care Team (Late st Contact Info) Description 07/22/2020 Telephone [facility] [address] [place] [address] Livan Eckert MD [address] [facility] [address] [place] [address] Social History Tobacco Use Types [...] going to be. Patient Call Back number: [phone] R OPERATOR documented in this encounter Plan of Treatment Upcoming Encounters Date Type Department Care Team (Late st Contact Info) Description 04/15/2025 1:30 PM MITER OPERATOR Office Visit [facility] [address] [place] [address], [place] [address] Christiano Grey MD [address] [place] [address] OF ALLERGY/[place] [address] documented as of this encounter Visit Diagnoses Not on filedocumented in this encounter Care Teams Marine Fire Fighter Relationship Specialty Start Date End Date Tracy Rodas MD PCP - General Internal Medicine 04/07/13 [place] [address] [place] [address] Orthopedic Surgery 04/07/13 documented as of this encounter
--- OUTSIDE RECORDS SUMMARY | 2024-12-09 11:18 | XMS_ITS | Clinical Summary ---
Author Organization [place] [address] [place] [address] [place] [address] Care Team Providers Care Operations Advisor Name Role Phone Tracy Rodas MD Primary Care Provider [phone] Allergies Active Allergy Reactions Criticality Noted Date [...] on file Legal Sex Female 12:41 AM SERVICE CENTER MANAGER Gender Identity Female 09/30/2020 11:24 AM [...] 02/14/2021, Additional [place] [address] [facility] [place] [address] AET[employer] SIG [id number] Advance Directives For more information, please contact: [phone] Documents on File Type Date Recorded Patient Seo Assistant Expl anation ADVANCE DIRECTIVE 09/27/2020 12:00 AM DARREN R OF TASSEL MAKING MACHINE OPERATOR FINANCIAL/MEDICAL Care Teams Operations Advisor Relationship Specialty Start Date End Date Tracy Rodas MD [address] [place] [address] PCP - General Internal Medicine 07/15/20
--- OUTSIDE RECORDS SUMMARY | 2024-12-09 11:59 | XMS_ITS | Encounter Summary ---
Author Organization [facility] Address [address] [facility] [place] [place] [address] Care Team Providers Care Gig Tender Name Role Phone Tracy Rodas MD Primary Care Provider [phone] Chinedu Villalobos MD Unavailable [phone] Encounter Details Date Type Department Care Team (Late st Contact Info) Description 04/03/2015 Therapy Visit [facility] Orthopedics [address] [address] [place] [address] [address] Social History Tobacco Use Types [...] st Contact Info) Description 04/15/2025 1:30 PM SENIOR DIRECTOR OF GLOBAL COMMERCIAL TECHNOLOGY SOLUTIONS Office Visit [facility] [address] [place] [address], [place] [address] Christiano Grey MD [address] [place] [address] DIV OF ALLERGY/[place] [address] documented as of this encounter Visit Diagnoses Not on filedocumented in this encounter Care Teams Gig Tender Relationship Specialty Start Date End Date Tracy Rodas MD PCP - General Internal Medicine 04/07/13 [place] [address] [facility] [address] [place] [address] Orthopedic Surgery 04/07/13 documented as of this encounter
--- OUTSIDE RECORDS SUMMARY | 2024-12-09 11:59 | XMS_ITS | Clinical Summary ---
Author Organization [place] [address] [place] Address [address] [place] [address] Care Team Providers Care Director Case Name Role Phone Tracy Rodas MD Primary Care Provider [phone] Allergies Active Allergy Reactions Criticality Noted Date [...] on file Legal Sex Female 12:41 AM EVP HEAD OF [employer] EXPERIENCE STRATEGY Gender Identity Female 09/30/2020 11:24 AM CDT [...] 02/14/2021, Additional [place] [address] [facility] MEDICARE ADVANTAGE [facility] MEDICARE Address: [facility] [address] [place] [address] [place] [address] [employer] SIG [id number] Advance Directives For more information, please contact: [phone] Documents on File Type Date Recorded Patient Technology Project Manager Expl anation ADVANCE DIRECTIVE 09/27/2020 12:00 AM DARREN R OF SALES AND MANAGEMENT TRAINEE FINANCIAL/MEDICAL Care Teams Director Case Relationship Specialty Start Date End Date Tracy Rodas MD [address] [place] [address] PCP - General Internal Medicine 07/15/20
--- OUTSIDE RECORDS SUMMARY | 2024-12-09 11:59 | XMS_ITS | Clinical Summary ---
Author Organization [facility] Address [address] [facility] [place] [address] Care Team Providers Care Fisher Mussel Name Role Phone Tracy Rodas MD Primary Care Provider [phone] Chinedu Villalobos MD Unavailable [phone] Source Comments [facility],non-owned Affiliates and Associated Physician Practices is amultiple site organization consisting of ambulatory clinics and hospital sitesin [place], [place], [place] and [place]. This disclosure is being madepursuant to the Care Everywhere program and may not contain all information available regarding this patient. Last updated 18.[facility] Allergies Active Allergy Reactions Criticality Noted Date [...] week 6 Active vitamin D, ergocalciferol, (DRISDOL) 40368 units capsule Take 1 (one) capsule by [...] sprayIndications: Seasonal allergic rhinitis due to pollen [place] 1 (one) spray into each nostril 2 times daily 51 g 3 5 Active Azelastine HCl 137 MCG/SPRAY SOLNIndications:S easonal allergic rhinitis due to pollen [place] 2 sprays into each nostril 2 times [...] [facility] [address], [place] [address] Victoria Rendon DO 10/16/2024 10:30 AM CDT Office Visit [facility] [address], [place] [address] Christiano Grey MD Moderate persistent asthma without [...] st Contact Info) Description 04/15/2025 1:30 PM RN TRAUMA Office Visit [facility] [address] [place] [address], [place] [address] Christiano Grey MD [address] [place] [address] OF ALLERGY/[place] [address] Health Maintenance Due Date Last Done Comments [...] this topic Medical Devices Implanted Type Area Corporate Director Of Pharmacy Device Identifier Shelf Expiration Date Model / Serial / Lot Graham Bone [place] Hv Implanted:Qty: 1 on 03/15/2015 by Chinedu Villalobos MD at [facility] Right: Knee [employer] 10/18/2016 [id number] / / [id number] Titanium Femoral Implant 67.5mm Right Implanted:Qty: 1 on 03/15/2015 by Chinedu Villalobos MD at [facility] Right: Knee [employer] 10/18/2024 [id number] / / [id number] Butn Pat Arcom Wire Polyeth Xsm 28 X 8 Implanted:Qty: 1 on 03/15/2015 by Chinedu Villalobos MD at [facility] Right: Knee [employer] 01/21/[id number] / / [id number] Stem Fem Maxim I-Beam Prim 40mm Implanted:Qty: 1 on 03/15/2015 by Chinedu Villalobos MD at [facility] Right: Knee [employer] 02/17/2025 [id number] / / [id number] Ty Tibial Prim Intlok 71mm Implanted:Qty: 1 on 03/15/2015 by Chinedu Villalobos MD at [facility] Right: Knee [employer] 10/14/2024 [id number] / / [id number] Brdg Tib Gayatri Stbl Implanted:Qty: 1 on 03/15/2015 by Chinedu Villalobos MD at [facility] Right: Knee [employer] 12/25/2019 [id number] / / [id number] Cmpnt Ptlr 28mm 1 Pg Wire Ascnt Arcm Kn Implanted:Qty: 1 on 05/24/2017 by Chinedu Villalobos MD at [facility] Left: Knee Deric [employer] 04/23/[id number] / / [id number] Metal Alternative Cr Femoral 65mm Implanted:Qty: 1 on 05/24/2017 by Chinedu Villalobos MD at [facility] Left: Knee [employer] 01/22/2027 [id number] / / [id number] Brng [id number] Vngrd Arcm Kn Ant Stab Implanted:Qty: 1 on 05/24/2017 by Chinedu Villalobos MD at [facility] Left: Knee Deric [employer] 04/23/2022 [id number] / / [id number] Cmnt Bone Cblt 40gm Hvisc Strl Implanted:Qty: 1 on 05/24/2017 by Chinedu Villalobos MD at [facility] Left: Knee [employer] 09/21/2018 [id number] / / [id number] Stem Tib 40mm As Mx Kn Prm I Beam Implanted:Qty: 1 on 05/24/2017 by Chinedu Villalobos MD at [facility] Left: Knee Deric [employer] 11/21/2026 [id number] / / [id number] Tray Tib 71mm As Mx Kn Intlk Ti Cr Prm Implanted:Qty: 1 on 05/24/2017 by Chinedu Villalobos MD at [facility] Left: Knee Deric [employer] 03/24/2027 [id number] / / [id number] Procedures Procedure Name Priority Date/Time Associated Diagnosis [...] 11:39 AM CDT 02/19/2015 11:48 AM CDT Cihnedu Villalobos MD LAB - CHEMISTRY ORDERABLES Fi nal Result [facility] [address] [place] [address] from Last 3 Months or Most Recently Relevant to Health Maintenance [place] [address] [employer] [place] [address] Advance Directives Documents on File Type Date Recorded Patient Ceramics Technician Expl anation Adv Directive/Living Will/POA 03/22/2015 3:11 PM * Full Code (Latest Code Status on File) Date Activated Date Inactivated Comments 05/24/2017 10:30 AM 05/26/2017 4:09 PM * Full Code Date Activated Date Inactivated Comments 03/15/2015 12:14 PM 03/18/2015 1:10 PM Care Teams Fisher Mussel Relationship Specialty Start Date End Date Tracy Rodas MD PCP - General Internal Medicine 04/07/13 [place] [address] [address] Orthopedic Surgery 04/07/13
--- OUTSIDE RECORDS SUMMARY | 2024-12-09 11:59 | XMS_ITS | Encounter Summary ---
Author Organization [facility] Address [address] [facility] [place] [address] Care Team Providers Care Academic Guidance Specialist Name Role Phone Tracy Rodas MD Primary Care Provider [phone] Chinedu Villalobos MD Unavailable Encounter Details Date Type Department Care Team (Late st Contact Info) Description 06/15/2015 Therapy Visit [facility] Orthopedics [address] [address] [place] [address] [address] Social History Tobacco Use Types [...] st Contact Info) Description 04/15/2025 1:30 PM INTERACTIVE MEDIA MARKETING DIRECTOR Office Visit [facility] [address] [place] [address], [place] [address] Christiano Grey MD [address] [place] [address] DIV OF ALLERGY/[place] [address] documented as of this encounter Visit Diagnoses Not on filedocumented in this encounter Care Teams Academic Guidance Specialist Relationship Specialty Start Date End Date Tracy Rodas MD PCP - General Internal Medicine 04/07/13 [place] [address] [facility] [address] [place] [address] Orthopedic Surgery 04/07/13 documented as of this encounter
--- OUTSIDE RECORDS SUMMARY | 2024-12-09 11:59 | XMS_ITS | Encounter Summary ---
Author Organization [facility] Address [address] [facility] [place] [address] Care Team Providers Care Bmet Name Role Phone Tracy Rodas MD Primary Care Provider Chineud Villalobos MD Unavailable [phone] Encounter Details Date Type Department Care Team (Late st Contact Info) Description 07/22/2020 Telephone [facility] [address] [place] [address] Livan Eckert MD [address] [facility] [address] [place] [address] Social History Tobacco Use Types [...] going to be. Patient Call Back number: [phone] RVISORY LIFEGUARD documented in this encounter Plan of Treatment Upcoming Encounters Date Type Department Care Team (Late st Contact Info) Description 04/15/2025 1:30 PM SUPERVISORY LIFEGUARD Office Visit [facility] [address] [place] [address], [place] [address] Christiano Grey MD [address] [place] [address] OF ALLERGY/[place] [address] documented as of this encounter Visit Diagnoses Not on filedocumented in this encounter Care Teams Bmet Relationship Specialty Start Date End Date Tracy Rodas MD PCP - General Internal Medicine 04/07/13 [place] [address] [place] [address] Orthopedic Surgery 04/07/13 documented as of this encounter
--- OUTSIDE RECORDS SUMMARY | 2024-12-09 11:59 | XMS_ITS | Encounter Summary ---
Author Organization [facility] Address [address] [facility] [place] [address] Care Team Providers Care Schedule Announcer Name Role Phone Tracy Rodas MD Primary Care Provider [phone] Chinedu Villalobos MD Unavailable [phone] Encounter Details Date Type Department Care Team (Late st Contact Info) Description 12/08/2024 Lab Requisition [facility] [address], [place] [address] Victoria Rendon DO [address] [facility] [address] [place] [address] Social History Tobacco Use Types Packs/Day Years [...] st Contact Info) Description 04/15/2025 1:30 PM BILINGUAL TRAINER Office Visit [facility] [address] [place] [address], [place] [address] Christiano Grey MD [address] [place] [address] OF ALLERGY/[place] [address] Scheduled Orders Name Type Priority Associated Diagnoses Orde r Schedule DERMATOPATHOLOGY Pathology Cytology Routine Ordered: 12/08/2024 documented as of this encounter Visit Diagnoses Not on filedocumented in this encounter Care Teams Schedule Announcer Relationship Specialty Start Date End Date Tracy Rodas MD PCP - General Internal Medicine 04/07/13 [place] [address] [address] Orthopedic Surgery 04/07/13 documented as of this encounter
--- OUTSIDE RECORDS SUMMARY | 2024-12-09 11:59 | XMS_ITS | Referral Summary ---
Author Organization [facility] [address] [place] Address [address] [place] [address] Care Team Providers Care Investment Banker Name Role Phone Tracy Rodas MD Primary Care Provider [phone] Allergies Active Allergy Reactions Criticality Noted Date [...] on file Legal Sex Female 12:41 AM VAMP WETTER Gender Identity Female 09/30/2020 11:24 AM CDT [...] Plan of Treatment Not on file Insurance [facility] MEDICARE ADVANTAGE [employer] SIG [id number] [place] [address] Advance Directives For more information, please contact: [phone] Documents on File Type Date Recorded Patient Coping Machine Operator Expl anation ADVANCE DIRECTIVE 09/27/2020 12:00 AM DARREN Newman OF OPERATIONS LABEL CLERK FINANCIAL/MEDICAL Care Teams Investment Banker Relationship Specialty Start Date End Date Tracy Rodas MD [address] [place] [address] PCP - General Internal Medicine 07/15/20
--- OUTSIDE RECORDS SUMMARY | 2024-12-09 11:59 | XMS_ITS | Clinical Summary ---
Author Organization [facility] Address [address] [place] [address] Care Team Providers Care Extruding Press Adjuster Name Role Phone Unavailable Primary Care Provider [...]
--- NOTE | 2024-12-09 12:26 | ED.GENADULT ---
HPI - General Adult General Chief complaint: Skin/Abscess/Foreign Body Stated complaint: possible allergic reaction Time Seen by Provider: 12/09/24 11:19 Source: patient Mode of arrival: ambulatory Limitations: no limitations History of Present Illness HPI narrative: 69-year-old with a history of hypertension, GERD , asthma here with a complains of possible wasp sting to left calf few hours ago patient states that she was walking and all of sudden felt something stung on her calf , pt states that walked back to house , took Benadryl and ice the area , started having throat irritation ,Denies any SOB or CP . Onset (ago): hour(s) Location: lower extremity (left calf) Severity: mild Quality: aching Relieving factors: none Exacerbating factors: none Associated symptoms: denies other symptoms Treatments prior to arrival: other (Benadryl) Related Data Home Medications ?Medication ?Instructions ?Recorded ?Confirmed ?Last Taken ?Type albuterol sulfate 90 mcg/actuation 2 puff inhalation QID PRN Wheezing 10/31/22 08/02/24 Unknown History aerosol inhaler (Ventolin HFA) azelastine 137 mcg (0.1 %) nasal 2 spray intranasal Q12H 10/31/22 08/02/24 07/21/24 History spray budesonide-formoterol HFA 160 2 puff inhalation Q12H 10/31/22 08/02/24 07/21/24 History mcg-4.5 mcg/actuation aerosol inhaler estradiol 0.01% (0.1 mg/gram) 0.5 g vaginal 3XW 10/31/22 08/02/24 Unknown History vaginal cream (Estrace) ipratropium 0.5 mg-albuterol 3 mg 3 ml inhalation PRN 10/31/22 08/02/24 Unknown History (2.5 mg base)/3 mL nebulization soln losartan 100 mg tablet 100 mg PO DAILY 10/31/22 08/02/24 07/20/24 History mometasone 50 mcg/actuation nasal 2 spray intranasal BID 10/31/22 08/02/24 07/21/24 History spray nebivolol 10 mg tablet (Bystolic) 10 mg PO DAILY 10/31/22 08/02/24 07/20/24 History albuterol sulfate 2.5 mg/3 mL 2.5 mg inhalation Q4H PRN 07/11/24 08/02/24 Unknown History (0.083 %) solution for nebulization shortness of breath or wheezing ergocalciferol (vitamin D2) 1,250 50,000 unit PO MONTHLY 07/11/24 08/02/24 Unknown History mcg (50,000 unit) capsule metronidazole 0.75 % topical cream 1 applic topical BID 07/11/24 08/02/24 Unknown History Allergies Allergy/AdvReac Type Severity Reaction Status Date / Time venom-wasp Allergy Severe Anaphylaxis Verified 12/09/24 11:22 celecoxib (From Celebrex) Allergy Hives Verified 12/09/24 11:22 nickel Allergy Rash Verified 12/09/24 11:22 Penicillins Allergy Anaphylaxis Verified 12/09/24 11:22 povidone-iodine (From Allergy Rash Verified 12/09/24 11:22 Betadine) Sulfa (Sulfonamide Allergy Hives Verified 12/09/24 11:22 Antibiotics) Review of Systems Review of Systems: All systems reviewed & are unremarkable except as noted in HPI and below Constitutional: Constitutional: Reports no additional constitutional complaints Eyes: Eyes: Reports no additional eye complaints ENT: Reports as per HPI Cardiovascular: Cardiovascular: Reports no additional cardiovascular complaints Respiratory: Respiratory: Reports no additional respiratory complaints Musculoskeletal: Musculoskeletal: Reports no additional musculoskeletal complaints [facility] Past Medical History Medical History Allergic rhinitis Asthma GERD (gastroesophageal reflux disease) Hypertension Surgical History Surgical History History of section H/O dilation and curettage History of total abdominal hysterectomy History of knee replacement Hx of cholecystectomy Family History Family History Other Depression Diabetes mellitus Heart disease Hypertension Social History Social History Smoking status: Never smoker Second hand tobacco smoke exposure: No Alcohol intake: unknown Alcohol use details: rarely Substance use: never Substance use type: does not use Do You Feel Safe in your Home?: Yes Lack of Transportation: No Lack of Food: Never True Current Housing: I Have Housing Concerned About Future Housing: No Difficulty Paying Gas/Electric Bills: No Difficulty Paying for Meds: No Currently Unemployed: No Education: Bachelor's Degree Difficulty w/ Childcare or Family Care: No Living arrangements: with family Spiritual care concerns: No Exam Narrative: GENERAL: Well-appearing, well-nourished, and in no acute distress. HEAD: Normocephalic, atraumatic. EYES: PERRLA and EOMI. ENT: Nares clear, no rhinorrhea or epistaxis. Mucous membranes moist. NECK: Supple. CHEST: Clear to auscultation. No respiratory distress. HEART: Regular rate and rhythm. No murmur heard. Normal peripheral pulses. EXTREMITIES: Normal range of motion. No edema.a small erythematous area behind the left calf. SKIN: Warm, dry, no rash. NEURO: No focal deficits. Alert and oriented x3. PSYCH: Normal mood and affect. Course Course Emergency Course: patient stated she is feeling slightly better. Has very minimal throat irritation. I did given IV Solu-Medrol and Benadryl. Advised her to prednisone for a few days. Vital Signs Vital signs: Vital Signs Temperature 36.6 C 12/09/24 11:12 Pulse Rate 12/09/24 11:12 Respiratory Rate 12/09/24 11:12 Blood Pressure 181/106 H 12/09/24 11:12 Pulse Oximetry 12/09/24 11:12 Oxygen Delivery Room Air 12/09/24 11:12 Temperature 36.6 C 12/09/24 11:12 Pulse Rate 75 12/09/24 11:12 Respiratory Rate 12/09/24 11:12 Blood Pressure 181/106 H 12/09/24 11:12 Pulse Oximetry 12/09/24 11:12 Oxygen Delivery Room Air 12/09/24 11:29 Medical Decision Making Vital Signs Vital Signs: Vital Signs Temperature 36.6 C 12/09/24 11:12 Pulse Rate 75 12/09/24 11:12 Respiratory Rate 12/09/24 11:12 Blood Pressure 181/106 H 12/09/24 11:12 Pulse Oximetry 12/09/24 11:12 Oxygen Delivery Room Air 12/09/24 11:12 Temperature 36.6 C 12/09/24 11:12 Pulse Rate 75 12/09/24 11:12 Respiratory Rate 12/09/24 11:12 Blood Pressure 181/106 H 12/09/24 11:12 Pulse Oximetry 95 12/09/24 11:12 Oxygen Delivery Room Air 12/09/24 11:29 Discharge Plan Discharge Clinical Impression: Insect bites, Allergic reaction to bee sting Patient Disposition: Home Condition: Stable Instructions: Insect Bite or Sting (ED), Allergies (ED) Patient Language: Ukrainian Prescriptions: New prednisone 20 mg tablet 20 mg PO BID Qty: 10 0RF No Action ipratropium-albuterol 0.5 mg-3 mg(2.5 mg base)/3 mL solution for nebulization 3 ml INHALATION PRN estradiol [Estrace] 0.01 % (0.1 mg/gram) Cream 0.5 g VAGINAL 3XW albuterol sulfate [Ventolin HFA] 90 mcg/actuation Hfa Aerosol Inhaler 2 puff INHALATION QID PRN (Reason: Wheezing) losartan 100 mg Tablet 100 mg PO DAILY budesonide-formoterol 160-4.5 mcg/actuation Hfa Aerosol Inhaler 2 puff INHALATION Q12H nebivolol [Bystolic] 10 mg Tablet 10 mg PO DAILY mometasone 50 mcg/actuation [place],Non-Aerosol 2 spray INTRANASAL BID Rx Instructions: administer into each nostril azelastine 137 mcg (0.1 %) Aerosol,[place] 2 spray INTRANASAL Q12H Rx Instructions: administer into each nostril (DME) ultrasound left lower leg See Rx Instructions .Route .MEDSUPPLY Qty: 1 0RF Rx Instructions: See orders as above albuterol sulfate 2.5 mg /3 mL (0.083 %) solution for nebulization 2.5 mg inhalation Q4H PRN (Reason: shortness of breath or wheezing) metronidazole 0.75 % cream 1 applic TOPICAL BID ergocalciferol (vitamin D2) 1,250 mcg (50,000 unit) capsule 50,000 unit PO MONTHLY Follow-up/Referrals: Tracy Rodas MD [Primary Care Provider] - Time of Disposition: 12:34
[2024-12-09 12:39] VITALS: BP 167/81; PULSE 58; RESP 18; O2SAT 100
[2024-12-09 12:41] VITALS: BP 167/76
== END 2024-12-09 12:46 | disposition home or self-care (01) ==
PROVIDERS: Emergency Provider Family Medicine; PCP Internal Medicine
DX: T63.441A Toxic effect of venom of bees, accidental (unintentional), initial encounter (principal); I10 Essential (primary) hypertension; J45.909 Unspecified asthma, uncomplicated
CPT/HCPCS: 96374; 96375; 99284; J1200; J2919

== ENCOUNTER 2024-12-17 10:44 | Outpatient (CLI) | payer MEDICARE, SELFPAY ==
[2024-12-17 11:05] LABS: Hematocrit 38.5 % (35.0-42.0); Hemoglobin 12.1 g/dL (11.7-13.8); Immature Granulocyte Percent A 0.5 % (0.0-0.0); Lymphocytes Absolute Auto 2.35 K/mm3 (1.10-4.50); Mean Corpuscular HGB Conc 31.4 g/dL (32-36); Mean Corpuscular Hemoglobin 25.3 pg (27.0-31.0); Mean Corpuscular Volume 80.4 fL (78.0-102.0); Nucleated Red Blood Cells Absolute Auto 0.00 K/mm3 (0.00-0.00); Nucleated Red Blood Cells Perc 0.0 % (0-0.0); Platelet Count Result 294 K/mm3 (150-420); Red Blood Count 4.79 M/mm3 (4.20-5.40); White Blood Count 9.3 K/mm3 (4.8-10.8)
[2024-12-17 11:06] LABS: Add Urine Microscopic? NO; Appearance Urine Clear (Clear); Glucose Urine UA Negative (Negative); Leukocyte Esterase Ur Negative (Negative); Nitrate Urine Negative (Negative); Specific Grav Ur <= 1.005 (1.010-1.020)
--- OUTSIDE RECORDS SUMMARY | 2024-12-17 11:14 | XMS_ITS | Encounter Summary ---
Author Organization [facility] Address [address] [place] [address] Care Team Providers Care Service Planner Name Role Phone Tracy Rodas MD Primary Care Provider Chinedu Villalobos MD Unavailable [phone] Encounter Details Date Type Department Care Team (Late st Contact Info) Description 07/22/2020 Telephone [facility] [address] [place] [address] Livan Eckert MD [address] [facility] [address] [place] [address] Social History Tobacco Use Types [...] going to be. Patient Call Back number: [phone] ING ENGINEER documented in this encounter Plan of Treatment Upcoming Encounters Date Type Department Care Team (Late st Contact Info) Description 04/15/2025 1:30 PM RIGGING ENGINEER Office Visit [facility] [address] [place] [address], [place] [address] Christiano Grey MD [address] [place] [address] OF ALLERGY/[place] [address] documented as of this encounter Visit Diagnoses Not on filedocumented in this encounter Care Teams Service Planner Relationship Specialty Start Date End Date Tracy Rodas MD PCP - General Internal Medicine 04/07/13 [place] [address] [place] [address] Orthopedic Surgery 04/07/13 documented as of this encounter
--- OUTSIDE RECORDS SUMMARY | 2024-12-17 11:14 | XMS_ITS | Encounter Summary ---
Author Organization [facility] Address [address] [facility] [place] [address] Care Team Providers Care Strainer Mill Operator Name Role Phone Tracy Rodas MD Primary Care Provider [phone] Chinedu Villalobos MD Unavailable [phone] Encounter Details Date Type Department Care Team (Late st Contact Info) Description 06/15/2015 Therapy Visit [facility] Orthopedics [address] [place] [address] [address] [place] [address] [address] Social History Tobacco Use Types [...] st Contact Info) Description 04/15/2025 1:30 PM ALGEBRAIST Office Visit [facility] [address] [place] [address], [place] [address] Christiano Grey MD [address] [place] [address] DIV OF ALLERGY/[place] [address] documented as of this encounter Visit Diagnoses Not on filedocumented in this encounter Care Teams Strainer Mill Operator Relationship Specialty Start Date End Date Tracy Rodas MD PCP - General Internal Medicine 04/07/13 [place] [address] [facility] [address] [place] [address] Orthopedic Surgery 04/07/13 documented as of this encounter
--- OUTSIDE RECORDS SUMMARY | 2024-12-17 11:14 | XMS_ITS | Encounter Summary ---
Author Organization [facility] Address [address] [facility] [place] [address] Care Team Providers Care Personalization Specialist Name Role Phone Tracy Rodas MD Primary Care Provider [phone] Chinedu Villalobos MD Unavailable [phone] Encounter Details Date Type Department Care Team (Late st Contact Info) Description 04/03/2015 Therapy Visit [facility] [address] [address] [place] [address] [address] Social History Tobacco Use Types [...] st Contact Info) Description 04/15/2025 1:30 PM BEEF SPLITTER Office Visit [facility] [address] [place] [address], [place] [address] Christiano Grey MD [address] [place] [address] DIV [place]ERGY/[place] [address] documented as of this encounter Visit Diagnoses Not on filedocumented in this encounter Care Teams Personalization Specialist Relationship Specialty Start Date End Date Tracy Rodas MD PCP - General Internal Medicine 04/07/13 [place] [address] [facility] [address] [place] [address] Orthopedic Surgery 04/07/13 documented as of this encounter
--- OUTSIDE RECORDS SUMMARY | 2024-12-17 11:14 | XMS_ITS | Clinical Summary ---
Author Organization [facility] Address [address] [facility] [place] [place] [address] Care Team Providers Care Cooler Operator Name Role Phone Tracy Rodas MD Primary Care Provider [phone] Chinedu Villalobos MD Unavailable [phone] Source Comments [facility],non-owned Affiliates and Associated Physician Practices is amultiple site organization consisting of ambulatory clinics and hospital sitesin [place], [place], [place] and [place]. This disclosure is being madepursuant to the Care Everywhere program and may not contain all information available regarding this patient. Last updated 18.[facility] Allergies Active Allergy Reactions Criticality Noted [...] week 6 Active vitamin D, ergocalciferol, (DRISDOL) 75632 units capsule Take 1 (one) capsule by [...] sprayIndications: Seasonal allergic rhinitis due to pollen Chandler 1 (one) spray into each nostril 2 times daily 51 g 3 5 Active Azelastine HCl 137 MCG/SPRAY SOLNIndications:S easonal allergic rhinitis due to pollen Chandler 2 sprays into each nostril 2 times [...] [facility] [address] [facility] [place] [place] [address] Victoria Rendon DO 10/16/2024 10:30 AM CDT Office Visit [facility] - Allergy [address] [facility] [place] [place] [address] Christiano Grey MD Moderate persistent asthma without [...] st Contact Info) Description 04/15/2025 1:30 PM WIRER Office Visit [facility] - Allergy [address] [place] [address], [place] [address] Christiano Grey MD [address] [place] [place] [address] OF ALLERGY/[place] [address] Health Maintenance Due Date Last Done Comments [...] this topic Medical Devices Implanted Type Area Card Seller Device Identifier Shelf Expiration Date Model / Serial / Lot Graham Bone [place]v Implanted:Qty: 1 on 03/15/2015 by Chinedu Villalobos MD at [facility] Right: Knee [employer] 10/18/2016 [id number] / / [id number] Titanium Femoral Implant 67.5mm Right Implanted:Qty: 1 on 03/15/2015 by Chinedu Villalobos MD at [facility] Right: Knee [employer] 10/18/2024 [id number] / / [id number] Butn Pat Arcom Wire Polyeth Xsm 28 X 8 Implanted:Qty: 1 on 03/15/2015 by Chinedu Villalobos MD at [facility] Right: Knee [employer] 01/21/[id number] / / [id number] Stem Fem Maxim I-Beam Prim 40mm Implanted:Qty: 1 on 03/15/2015 by Chinedu Villalobos MD at [facility] Right: Knee [employer] 02/17/2025 [id number] / / [id number] Ty Tibial Prim Intlok 71mm Implanted:Qty: 1 on 03/15/2015 by Chinedu Villalobos MD at [facility] Right: Knee [employer] 10/14/2024 [id number] / / [id number] Brdg Tib Gayatri Stbl Implanted:Qty: 1 on 03/15/2015 by Chinedu Villalobos MD at [facility] Right: Knee [employer] 12/25/2019 [id number] / / [id number] Cmpnt Ptlr 28mm 1 Pg Wire Ascnt Arcm Kn Implanted:Qty: 1 on 05/24/2017 by Chinedu Villalobos MD at [facility] Left: Knee Deric [employer] 04/23/[id number] / / [id number] Metal Alternative Cr Femoral 65mm Implanted:Qty: 1 on 05/24/2017 by Chinedu Villalobos MD at [facility] Left: Knee [employer] 01/22/2027 [id number] / / [id number] Brng [id number] Vngrd Arcm Kn Ant Stab Implanted:Qty: 1 on 05/24/2017 by Chinedu Villalobos MD at [facility] Left: Knee Deric [employer] 04/23/2022 [id number] / / [id number] Cmnt Bone Cblt 40gm Hvisc Strl Implanted:Qty: 1 on 05/24/2017 by Chinedu Villalobos MD at [facility] Left: Knee [employer] 09/21/2018 [id number] / / [id number] Stem Tib 40mm As Mx Kn Prm I Beam Implanted:Qty: 1 on 05/24/2017 by Chinedu Villalobos MD at [facility] Left: Knee [employer]eric [employer] 11/21/2026 [id number] / / [id number] Tray Tib 71mm As Mx Kn Intlk Ti Cr Prm Implanted:Qty: 1 on 05/24/2017 by Chinedu Villalobos MD at [facility] Left: Knee [employer] 03/24/2027 [id number] / / [id number] Procedures Procedure Name Priority Date/Time Associated Diagnosis Comments DERMATOPATHOLOGY Routine 12/08/2024 3:05 PM CDT COMPREHENSIVE METABOLIC PANEL Routine 02/19/2015 11:39 AM CDT Preoperative examination from Last 3 Months or Most Recently Relevant to Health Maintenance Results * DERMATOPATHOLOGY (12/08/2024 3:05 PM CDT) Case Report Dermatopathology Report Case: [id number] Authorizing Provider: Victoria Rendon DO Collected: 12/08/2024 03:05 PM Ordering Location: [facility] - Received: 12/09/2024 12:25 PM DermPath Lab Pathologist: Valeria Garcias MD Specimen: Skin, left upper arm 4:45 PM CDT DERMATOPATHOLOGY LABORATORY Final Diagnosis Specimen A. SKIN, left upper arm: COMPOUND MELANOCYTIC NEVUS, IRRITATED (D22.62) 4:45 PM CDT DERMATOPATHOLOGY LABORATORY at 1645 CDT Clinical History Nevus; R/O Atypia 4:45 PM CDT DERMATOPATHOLOGY LABORATORY Gross Description Specimen A: Received is one formalin filled container labeled with the patient's name and designated left upper arm. The specimen consists of a shave biopsy measuring 5x4x1 mm. Jar 0. 4:45 PM CDT DERMATOPATHOLOGY LABORATORY Microscopic Description Specimen A. SKIN, left upper arm: There is melanin pigment in the stratum corneum. There are nests of melanocytes at the dermal-epidermal junction and within the dermis. 4:45 PM CDT DERMATOPATHOLOGY LABORATORY Disclaimer An external and internal positive and negative controls are appropriate for the histochemical, immunohistochemical and immunofluorescence stain(s) in this case (if any), except where stated explicitly. The performance characteristics of the stain(s) cited in this report were developed and its performance characteristic determined by the Dermatopathology Laboratory at [facility], directed by Dr. Mario Alberto Elmore. These tests need not be, and therefore are not, approved by the [place] Food and Drug Administration. The tests are used for clinical purposes. Billing Codes Specimen Charges Stain Charges 08463 1 5 4:45 PM CDT DERMATOPATHOLOGY LABORATORY Embedded Images 5 4:45 PM CDT DERMATOPATHOLOGY LABORATORY Pathology/Cytolo gy TISSUE SPECIMEN FROM SKIN / Unknown 12/08/2024 3:05 PM CDT 12/09/2024 12:25 PM CDT us Victoria Rendon DO LAB - PATHOLOGY/CYTOLOGY ORDERABLES Final Result DERMATOPATHOLOGY LABORATORY [facility] - Department of Dermatology [address], [address] [phone] * (ABNORMAL) COMPREHENSIVE METABOLIC PANEL (02/19/2015 11:39 AM CDT) Glucose 99 74 - 106 mg/dL 02/19/2015 12:10 PM CDT [facility] Sodium 138 136 - 145 mmol/L 02/19/2015 12:10 PM CDT [facility] Potassium 3.4(L) 3.5 - 5.1 mmol/L 02/19/2015 12:10 PM CDT [facility] Chloride 103 98 - 107 mmol/L 02/19/2015 12:10 PM CDT [facility] CO2 26 22 - 31 mmol/L 02/19/2015 12:10 PM CDT [facility] Calcium 9.5 8.5 - 10.1 mg/dL 02/19/2015 12:10 PM CDT [facility] Anion Gap 9 5 - 20 mmol/L 02/19/2015 12:10 PM CDT [facility] BUN 17 7 - 21 mg/dL 02/19/2015 12:10 PM CDT [facility] Creatinine 1.10 0.50 - 1.30 mg/dL 02/19/2015 12:10 PM CDT [facility] Alkaline Phosphatase 80 38 - 126 U/L 02/19/2015 12:10 PM CDT [facility] ALT 33 12 - 78 U/L 02/19/2015 12:10 PM CDT [facility] AST 17 5 - 40 U/L 02/19/2015 12:10 PM CDT [facility] Protein Total 7.5 6.4 - 8.2 gm/dL 02/19/2015 12:10 PM CDT [facility] Albumin 4.0 3.4 - 5.0 gm/dL 02/19/2015 12:10 PM CDT [facility] Bilirubin Total 0.6 0.2 - 1.0 mg/dL 02/19/2015 12:10 PM CDT [facility] eGFR by MDRD 51(L) >60 mL/min/1.7 3m2 02/19/2015 12:10 PM CDT [facility] eGFR by MDRD >60 >60 mL/min/1.7 3m2 02/19/2015 12:10 PM CDT [facility] Blood BLOOD SPECIMEN / Unknown 02/19/2015 11:39 AM CDT 02/19/2015 11:48 AM CDT Chinedu Villalobos MD LAB - CHEMISTRY ORDERABLES Fi nal Result [facility] [address] [place] [address] from Last 3 Months or Most Recently Relevant to Health Maintenance Insurance [employer] [address] [place] [address] [facility] MANAGED MEDICARE [place] [address] Advance Directives Documents on File Type Date Recorded Patient Distributed Generation Project Manager Expl anation Adv Directive/Living Will/POA 03/22/2015 3:11 PM * Full Code (Latest Code Status on File) Date Activated Date Inactivated Comments 05/24/2017 10:30 AM 05/26/2017 4:09 PM * Full Code Date Activated Date Inactivated Comments 03/15/2015 12:14 PM 03/18/2015 1:10 PM Care Teams Cooler Operator Relationship Specialty Start Date End Date Tracy Rodas MD PCP - General Internal Medicine 04/07/13 [place] [address] [place] [address] [place] [address] Orthopedic Surgery 04/07/13
--- OUTSIDE RECORDS SUMMARY | 2024-12-17 11:14 | XMS_ITS | Referral Summary ---
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 Gender Identity Female 09/30/2020 11:24 AM CDT [...] Plan of Treatment Not on file Insurance [facility] MEDICARE ADVANTAGE [employer] SIG [id number] [place] [address] Advance Directives For more information, please contact: [phone] Documents on File Type Date Recorded Patient Director Quality Systems Expl anation ADVANCE DIRECTIVE 09/27/2020 12:00 AM DARREN Newman OF FORGE T[employer] FINANCIAL/MEDICAL Care Teams Windows Vmware Engineer Relationship Specialty Start Date End Date Tracy Rodas MD [address] [place] [address] PCP - General Internal Medicine 07/15/20
--- OUTSIDE RECORDS SUMMARY | 2024-12-17 11:14 | XMS_ITS | Clinical Summary ---
Author Organization [facility] Address [address] [place] [address] Care Team Providers Care Transcription Name Role Phone Unavailable Primary Care Provider [...]
--- OUTSIDE RECORDS SUMMARY | 2024-12-17 11:14 | XMS_ITS | Encounter Summary ---
Author Organization [facility] Address [address] [facility] [place] [address] Care Team Providers Care International Affairs Vice President Name Role Phone Tracy Rodas MD Primary Care Provider [phone] Chinedu Villalobos MD Unavailable [phone] Encounter Details Date Type Department Care Team (Late st Contact Info) Description 12/08/2024 Lab Requisition [facility] [address] [facility], [place] [address] Victoria Rendon DO [address] [facility] 3 [place] [address] Social History Tobacco Use Types Packs/Day Years [...] st Contact Info) Description 04/15/2025 1:30 PM CORPORATE AIRCRAFT MECHANIC Office Visit [facility] - Allergy [address] [place] [address], [facility] [place] [address] Christiano Grey MD [address] [place] [address] OF ALLERGY/[place] [address] documented as of this encounter Procedures Procedure Name Priority Date/Time Associated Diagnosis Comments DERMATOPATHOLOGY Routine 12/08/2024 3:05 PM CDT documented in this encounter Results * DERMATOPATHOLOGY (12/08/2024 3:05 PM CDT) Case Report Dermatopathology Report Case: [id number] Authorizing Provider: Victoria Rendon DO Collected: 12/08/2024 03:05 PM Ordering Location: [facility] - Received: 12/09/2024 12:25 PM [...] characteristic determined by the Dermatopathology Laboratory at [facility], directed by Dr. Mario Alberto Elmore. These tests need not be, and therefore are not, approved by the [place] Food and Drug Administration. The tests are used for clinical purposes. Billing Codes Specimen Charges Stain Charges 11405 1 4:45 PM CDT DERMATOPATHOLOGY LABORATORY Embedded Images 4:45 PM CDT DERMATOPATHOLOGY LABORATORY Pathology/Cytolo gy TISSUE SPECIMEN FROM SKIN / Unknown 12/08/2024 3:05 PM CDT 12/09/2024 12:25 PM CDT us Victoria Rendon DO LAB - PATHOLOGY/CYTOLOGY ORDERABLES Final Result DERMATOPATHOLOGY LABORATORY [facility] - Department of Dermatology [facility] Medicine [address] [place] [address], [address] [phone] documented in this encounter Visit Diagnoses Not on filedocumented in this encounter Care Teams International Affairs Vice President Relationship Specialty Start Date End Date Tracy Rodas MD PCP - General Internal Medicine 04/07/13 [place] [address] [place] [id number] Orthopedic Surgery 04/07/13 documented as of this encounter
--- OUTSIDE RECORDS SUMMARY | 2024-12-17 11:14 | XMS_ITS | Clinical Summary ---
Author Organization [place] [address] [place] Address [address] [place] [address] Care Team Providers Care Steam Gigger Name Role Phone Tracy Rodas MD Primary Care Provider [phone] Allergies Active Allergy Reactions Criticality Noted Date [...] on file Legal Sex Female 12:41 AM PIPING ENGINEER Gender Identity Female 09/30/2020 11:24 AM CDT [...] 2023-2 5 season) 2024 01/25/2022, 08/06/2020, 07/14/2020 Influenza Vaccine (#1) 2025 , 02/20/2022, 02/14/2021, Additional history exists Pneumococcal vaccine 65+ (3 of 3 - PCV20 or PCV21) 01/27/2025 01/28/2020, 01/20/2020, 02/23/2014 DTaP/Tdap/Td Vaccine (2 - Td or Tdap) 08/22/2028 08/22/2018 Zoster Vaccine Completed 10/23/2018, 08/22/2018 [place] [address] [facility] MEDICARE [place] [address] [place] [id number] [employer] SIG [id number] Advance Directives For more information, please contact: [phone] Documents on File Type Date Recorded Patient Supervisor Tree Trimming Expl anation ADVANCE DIRECTIVE 09/27/2020 12:00 AM DARREN R OF [employer] PLASTIC CARD GRADER FINANCIAL/MEDICAL Care Teams Steam Gigger Relationship Specialty Start Date End Date Tracy Rodas MD [address] [place], [place] [id number] PCP - General Internal Medicine 07/15/20
[2024-12-17 11:28] LABS: MALB Creatinine Ratio 15.3 mg/g (0-30)
[2024-12-17 11:30] LABS: Alanine Aminotransferase 21 U/L (6-35); Albumin Level 4.0 g/dL (3.5-5.1); Alkaline Phosphatase 84 U/L (38-126); Anion Gap 5 mmol/L (4-12); Aspartate Amino Transferase 27 U/L (14-36); Bilirubin,Total 0.7 mg/dL (0.2-1.3); Blood Urea Nitrogen 15 mg/dL (7-17); Calcium 8.5 mg/dL (8.4-10.2); Carbon Dioxide 21 mmol/L (22-30); Chloride 106 mmol/L (98-107); Cholesterol 190 mg/dL (0-200); Creatine Kinase 76 U/L (30-135); Estimated Glomerular Filt Rate 47; Glucose 98 mg/dL (65-110); HDL Direct 54 mg/dL; Osmolality Calculated 274 mOsm/kg (285-295); Potassium 4.5 mmol/L (3.4-5.0); Sodium 132 mmol/L (137-145); Total Protein 6.4 g/dL (6.3-8.2); Triglycerides 209 mg/dL (<150)
[2024-12-17 12:09] LABS: Hemoglobin A1C 6.2 % (<5.7)
== END 2024-12-17 10:45 | disposition home or self-care (01) ==
LOC: CHSLAB 10:46
PROVIDERS: PCP Internal Medicine; Visit Provider Internal Medicine
DX: E78.2 Mixed hyperlipidemia (principal); N18.2 Chronic kidney disease, stage 2 (mild); R73.01 Impaired fasting glucose; I12.9 Hypertensive chronic kidney disease with stage 1 through stage 4 chronic kidney disease, or unspecified chronic kidney disease; E55.9 Vitamin D deficiency, unspecified
CPT/HCPCS: 36415; 80053; 80061; 81003; 82043; 82306; 82550; 83036; 83970; 85025

== ENCOUNTER 2025-01-22 13:38 | Outpatient (CLI) | payer MEDICARE, SELFPAY ==
--- NOTE | ~2025-01-22 | MM_ITS ---
EXAMINATION: MM screening [facility] BI w debby HISTORY: Screening TECHNIQUE: Craniocaudal and mediolateral oblique 3-D tomosynthesis images were obtained and synthetic 2-D images were generated. CAD analysis was submitted and interpreted. COMPARISON: Mammograms from 12/13/2021 and 12/06/2020 BREAST PARENCHYMAL COMPOSITION: Not Dense: The breasts are almost entirely fatty. FINDINGS: There is no evidence of suspicious mass, calcification, or architectural distortion to suggest malignancy. There has been no suspicious interval change. IMPRESSION: 1. No mammographic evidence of malignancy. Recommend routine screening mammography in one year. BI-RADS Category 2: Benign finding(s) Reviewed, dictated and finalized at location Q. IMPRESSION: 1. No mammographic evidence of malignancy. Recommend routine screening mammogra phy in one year. BI-RADS Category 2: Benign finding(s)
--- OUTSIDE RECORDS SUMMARY | 2025-01-22 13:51 | XMS_ITS | Encounter Summary ---
Author Organization [facility] Address [address] [facility] [place] [address] Care Team Providers Care Vp Of Product Name Role Phone Tracy Rodas MD Primary Care Provider [phone] Chinedu Villalobos MD Unavailable [phone] Encounter Details Date Type Department Care Team (Late st Contact Info) Description 07/22/2020 Telephone [facility] [address] [place] [address] Livan Eckert MD [address] [facility] [address] [place] [address] Social History Tobacco Use Types [...] going to be. Patient Call Back number: [phone] OGRAPHIC ARTIST documented in this encounter Plan of Treatment Upcoming Encounters Date Type Department Care Team (Late st Contact Info) Description 04/15/2025 1:30 PM PHOTOGRAPHIC ARTIST Office Visit [facility] [address] [place] [address], [place] [address] Christiano Grey MD [address] [place] [address] OF ALLERGY/[place] [address] documented as of this encounter Visit Diagnoses Not on filedocumented in this encounter Care Teams Vp Of Product Relationship Specialty Start Date End Date Tracy Rodsa MD PCP - General Internal Medicine 04/07/13 [place] [address] [place] [address] Orthopedic Surgery 04/07/13 documented as of this encounter
--- OUTSIDE RECORDS SUMMARY | 2025-01-22 13:51 | XMS_ITS | Encounter Summary ---
Author Organization [facility] Address [address] [facility] [place] [address] Care Team Providers Care Manager Assembly Name Role Phone Tracy Rodas MD Primary Care Provider [phone] Chinedu Villalobos MD Unavailable Encounter Details Date Type Department Care Team (Late st Contact Info) Description 06/15/2015 Therapy Visit [facility] Orthopedics [address] [address] [place] [address] [address] Social History Tobacco Use Types [...] st Contact Info) Description 04/15/2025 1:30 PM SLUBBER MACHINE OPERATOR Office Visit [facility] - Allergy [address] [place] [address], [place] [address] Christiano Grey MD [address] [place] [address] DIV OF ALLERGY/[place] [address] documented as of this encounter Visit Diagnoses Not on filedocumented in this encounter Care Teams Manager Assembly Relationship Specialty Start Date End Date Tracy Rodas MD PCP - General Internal Medicine 04/07/13 [place] [address] [facility] [address] [place] [address] Orthopedic Surgery 04/07/13 documented as of this encounter
--- OUTSIDE RECORDS SUMMARY | 2025-01-22 13:51 | XMS_ITS | Encounter Summary ---
Author Organization [facility] Address [address] [facility] [place] [address] Care Team Providers Care Subway Guard Name Role Phone Tracy Rodas MD Primary Care Provider [phone] Chinedu Villalobos MD Unavailable [phone] Encounter Details Date Type Department Care Team (Late st Contact Info) Description 12/08/2024 Lab Requisition [facility] [address] [facility], [place] [address] Victoria Rendon DO [address] [facility] 3 [place] [address] Social History Tobacco Use Types Packs/Day Years [...] Assessment Author No 05/24/2017 10:30 AM Elisha Curz RN * Does person have difficulty dressing/bathing? [...] st Contact Info) Description 04/15/2025 1:30 PM REVENUE ENFORCEMENT COLLECTION AGENT Office Visit [facility] - Allergy [address] [place] [address], [facility] [place] [address] Christiano Grey MD [address] [place] [address] OF ALLERGY/[place] [address] documented as of this encounter Procedures Procedure Name Priority Date/Time Associated Diagnosis Comments DERMATOPATHOLOGY Routine 12/08/2024 3:05 PM CDT documented in this encounter Results * DERMATOPATHOLOGY (12/08/2024 3:05 PM CDT) Case Report Dermatopathology Report Case: [id number] Authorizing Provider: Victoria Rendon DO Collected: 12/08/2024 03:05 PM Ordering Location: [facility] - Received: 12/09/2024 12:25 PM [...] characteristic determined by the Dermatopathology Laboratory at [facility], directed by Dr. Mario Alberto Elmore. These tests need not be, and therefore are not, approved by the [place] Food and Drug Administration. The tests are used for clinical purposes. Billing Codes Specimen Charges Stain Charges 61866 1 4:45 PM CDT DERMATOPATHOLOGY LABORATORY Embedded Images 4:45 PM CDT DERMATOPATHOLOGY LABORATORY Pathology/Cytolo gy TISSUE SPECIMEN FROM SKIN / Unknown 12/08/2024 3:05 PM CDT 12/09/2024 12:25 PM CDT us Victoria Rendon DO LAB - PATHOLOGY/CYTOLOGY ORDERABLES Final Result DERMATOPATHOLOGY LABORATORY [facility] - Department of Dermatology [facility] Medicine [address] [place] [address], [address] [phone] documented in this encounter Visit Diagnoses Not on filedocumented in this encounter Care Teams Subway Guard Relationship Specialty Start Date End Date Tracy Rodas MD PCP - General Internal Medicine 04/07/13 [place] [address] [place] [id number] Orthopedic Surgery 04/07/13 documented as of this encounter
--- OUTSIDE RECORDS SUMMARY | 2025-01-22 13:52 | XMS_ITS | Encounter Summary ---
Author Organization [facility] Address [address] [facility] [place] [address] Care Team Providers Care Shipping/Receiving Manager Name Role Phone Tracy Rodas MD Primary Care Provider [phone] Chinedu Villalobos MD Unavailable [phone] Encounter Details Date Type Department Care Team (Late st Contact Info) Description 04/03/2015 Therapy Visit [facility] Orthopedics [address] [address] [place] [address] [address] Social History Tobacco Use Types [...] st Contact Info) Description 04/15/2025 1:30 PM POLICE AIDE Office Visit [facility] - Allergy [address] [place] [address], [place] [address] Christiano Grey MD [address] [place] [address] DIV [place]ERGY/[place] [address] documented as of this encounter Visit Diagnoses Not on filedocumented in this encounter Care Teams Shipping/Receiving Manager Relationship Specialty Start Date End Date Tracy Rodas MD PCP - General Internal Medicine 04/07/13 [place] [address] [facility] [address] [place] [address] Orthopedic Surgery 04/07/13 documented as of this encounter
--- OUTSIDE RECORDS SUMMARY | 2025-01-22 13:52 | XMS_ITS | Clinical Summary ---
Author Organization [facility] Address [address] [facility] [place] [address] Care Team Providers Care Fine Dining Server Name Role Phone Tracy Rodas MD Primary Care Provider [phone] Chinedu Villalobos MD Unavailable [phone] Source Comments [facility],non-owned Affiliates and Associated Physician Practices is amultiple site organization consisting of ambulatory clinics and hospital sitesin [place], [place], [place] and [place]. This disclosure is being madepursuant to the Care Everywhere program and may not contain all information available regarding this patient. Last updated 18.[facility] Allergies Active Allergy Reactions Criticality Noted [...] week 6 Active vitamin D, ergocalciferol, (DRISDOL) 45836 units capsule Take 1 (one) capsule by [...] sprayIndications: Seasonal allergic rhinitis due to pollen [place] 1 (one) spray into each nostril 2 times daily 51 g 3 5 Active Azelastine HCl 137 MCG/SPRAY SOLNIndications:S easonal allergic rhinitis due to pollen [place] 2 sprays into each nostril 2 times [...] Department Care Team Description 12/08/2024 Lab Requisition [facility] - DermPath Lab [address] [facility] [place] [address] Victoria Rendon DO from Last 3 Months Immunizations Immunization Administration [...] st Contact Info) Description 04/15/2025 1:30 PM PRODUCTION SUPPORT ENGINEER Office Visit [facility] - Allergy [address] [place] [address], [place] [address] Christiano Grey MD [address] [place] [address] OF ALLERGY/[place] [address] Health Maintenance Due Date Last Done Comments [...] series) 2017 SCREENING FOR DIABETES 03/16/2021 02/19/2015 DEPRESSION SCREENING 05/21/2024 10/19/2023, 10/20/19 23 MEDICARE AWV CALENDAR YEAR 2024 COVID-19 VACCINE ( season) 2025 01/25/2022, 02/14/2021, 08/06/2020, Additional history exists INFLUENZA VACCINE (#1) 2025 , 02/14/2021, 02/19/2019, [...] this topic Medical Devices Implanted Type [facility] Cook Device Identifier Shelf Expiration Date Model / Serial / Lot Graham Bone [place] Hv Implanted:Qty: 1 on 03/15/2015 by Chinedu Villalobos MD at [facility] Right: Knee [employer] 10/18/2016 [id number] / / [id number] Titanium Femoral Implant 67.5mm Right Implanted:Qty: 1 on 03/15/2015 by Chinedu Villalobos MD at [facility] Right: Knee [employer] 10/18/2024 [id number] / / [id number] Butn Pat Arcom Wire Polyeth Xsm 28 X 8 Implanted:Qty: 1 on 03/15/2015 by Chinedu Villalobos MD at [facility] Right: Knee [employer] 01/21/2020 [id number] / / [id number] Stem Fem Maxim I-Beam Prim 40mm Implanted:Qty: 1 on 03/15/2015 by Chinedu Villalobos MD at [facility] Right: Knee [employer] 02/17/2025 [id number] / / [id number] Ty Tibial Prim Intlok 71mm Implanted:Qty: 1 on 03/15/2015 by Chinedu Villalobos MD at [facility] Right: Knee [employer] 10/14/2024 [id number] / / [id number] Brdg Tib Gayatri Stbl Implanted:Qty: 1 on 03/15/2015 by Chinedu Villalobos MD at [facility] Right: Knee [employer] 12/25/2019 [id number] / / [id number] Cmpnt Ptlr 28mm 1 Pg Wire Ascnt Arcm Kn Implanted:Qty: 1 on 05/24/2017 by Chinedu Villalobos MD at [facility] Left: Knee [employer] 04/23/2022 [id number] / / [id number] Metal Alternative Cr Femoral 65mm Implanted:Qty: 1 on 05/24/2017 by Chinedu Villalobos MD at [facility] Left: Knee [employer] 01/22/2027 [id number] / / [id number] Brng [id number] Vngrd Arcm Kn Ant Stab Implanted:Qty: 1 on 05/24/2017 by Chinedu Villalobos MD at [facility] Left: Knee [employer] 04/23/2022 [id number] / / [id number] Cmnt Bone Cblt 40gm Hvisc Strl Implanted:Qty: 1 on 05/24/2017 by Chinedu Villalobos MD at [facility] Left: Knee [employer] 09/21/2018 [id number] / / [id number] Stem Tib 40mm As Mx Kn Prm I Beam Implanted:Qty: 1 on 05/24/2017 by Chinedu Villalobos MD at [facility] Left: Knee [employer] 11/21/2026 [id number] / / [id number] Tray Tib 71mm As Mx Kn Intlk Ti Cr Prm Implanted:Qty: 1 on 05/24/2017 by Chinedu Villalobos MD at [facility] Left: Knee [employer] 03/24/2027 [id number] / / [id number] Procedures Procedure Name Priority Date/Time Associated Diagnosis Comments DERMATOPATHOLOGY Routine 12/08/2024 3:05 PM CDT COMPREHENSIVE METABOLIC PANEL Routine 02/19/2015 11:39 AM CDT Preoperative examination from Last 3 Months or Most Recently Relevant to Health Maintenance Results * DERMATOPATHOLOGY (12/08/2024 3:05 PM CDT) Case Report Dermatopathology Report Case: [id number] Authorizing Provider: Victoria Rendon DO Collected: 12/08/2024 03:05 PM Ordering Location: [facility] - Received: 12/09/2024 12:25 PM [...] characteristic determined by the Dermatopathology Laboratory at [facility], directed by Dr. Mario Alberto Elmore. These tests need not be, and therefore are not, approved by the [place] Food and Drug Administration. The tests are used for clinical purposes. Billing Codes Specimen Charges Stain Charges 95340 1 5 4:45 PM CDT DERMATOPATHOLOGY LABORATORY Embedded Images 5 4:45 PM CDT DERMATOPATHOLOGY LABORATORY Pathology/Cytolo gy TISSUE SPECIMEN FROM SKIN / Unknown 12/08/2024 3:05 PM CDT 12/09/2024 12:25 PM CDT us Victoria Rendon DO LAB - PATHOLOGY/CYTOLOGY ORDERABLES Final Result DERMATOPATHOLOGY LABORATORY [facility] - Department of Dermatology [address], [address] Floor [address] [phone] * (ABNORMAL) COMPREHENSIVE METABOLIC PANEL (02/19/2015 11:39 AM CDT) Glucose 99 74 - 106 mg/dL 02/19/2015 12:10 PM CDT [facility] Sodium 138 136 - 145 mmol/L 02/19/2015 12:10 PM CDT [facility] Potassium 3.4(L) 3.5 - 5.1 mmol/L 02/19/2015 12:10 PM CDT [facility] Chloride 103 98 - 107 mmol/L 02/19/2015 12:10 PM CDT [facility] CO2 26 22 - 31 mmol/L 02/19/2015 12:10 PM CDT [facility] Calcium 9.5 8.5 - 10.1 mg/dL 02/19/2015 12:10 PM CDT [facility] Anion Gap 9 5 - 20 mmol/L 02/19/2015 12:10 PM CDT [facility] BUN 17 7 - 21 mg/dL 02/19/2015 12:10 PM CDT [facility] Creatinine 1.10 0.50 - 1.30 mg/dL 02/19/2015 12:10 PM CDT [facility] Alkaline Phosphatase 80 38 - 126 U/L 02/19/2015 12:10 PM CDT [facility] ALT 33 12 - 78 U/L 02/19/2015 12:10 PM CDT [facility] AST 17 5 - 40 U/L 02/19/2015 12:10 PM CDT [facility] Protein Total 7.5 6.4 - [...] LAB - CHEMISTRY ORDERABLES Fi nal Result [facility] [address] [place] [address] from Last 3 Months or Most Recently Relevant to Health Maintenance Insurance [employer] [facility] MANAGED MEDICARE ADV Advance Directives Documents on File Type Date Recorded Patient Retail Service Specialist Expl anation Adv Directive/Living Will/POA 03/22/2015 3:11 PM * Full Code (Latest Code Status on File) Date Activated Date Inactivated Comments 05/24/2017 10:30 AM 05/26/2017 4:09 PM * Full Code Date Activated Date Inactivated Comments 03/15/2015 12:14 PM 03/18/2015 1:10 PM Care Teams Fine Dining Server Relationship Specialty Start Date End Date Tracy Rodas MD PCP - General Internal Medicine 04/07/13 [place] [address] [address] Orthopedic Surgery 04/07/13
--- OUTSIDE RECORDS SUMMARY | 2025-01-22 13:52 | XMS_ITS | Clinical Summary ---
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 Gender Identity Female 09/30/2020 11:24 AM CDT [...] Vaccine Completed 10/23/2018, 08/22/2018 [place] [address] [facility] [place] [id number] [place] SIG [id number] Advance Directives For more information, please contact: [phone] Documents on File Type Date Recorded Patient Lpn Medical Assistant Expl anation ADVANCE DIRECTIVE 09/27/2020 12:00 AM DARREN R OF INTERIOR MECHANIC FINANCIAL/MEDICAL Care Teams Iso Coordinator Relationship Specialty Start Date End Date Tracy Rodas MD [address] [place], [place] [id number] PCP - General Internal Medicine 07/15/20
== END 2025-01-22 13:39 | disposition home or self-care (01) ==
LOC: CHSIMG 13:39
PROVIDERS: PCP Internal Medicine; Visit Provider Obstetrics & Gynecology
DX: Z12.31 Encounter for screening mammogram for malignant neoplasm of breast (principal)
CPT/HCPCS: 77063; 77067

== ENCOUNTER 2025-03-19 15:49 | Outpatient (CLI) | payer MEDICARE, SELFPAY ==
--- OUTSIDE RECORDS SUMMARY | 2019-02-03 05:45 | XMS_ITS | Continuity of Care Document ---
Author Organization [employer] [facility] Address [address] [place] [address] Phone Care Team Providers Care Charge Lpn Name Role Phone Unavailable Unavailable Unavailable Allergies, Adverse Reactions, Alerts Substance Reaction Status Criticality Sulfa (Sulfonamide Antibiotics) Active No Information Penicillins Active No Information celecoxib Active No Information Medications Medication Instructions Dosage Effective Dates (start - stop) Status Comments Dymista 137 mcg-50 mcg/spray nasal spray spray 1 spray by intranasal route 2 times every day in each nostril 1.00 spray - Active Bystolic 5 mg tablet take 1 tablet by oral route every day 5 MG - Active albuterol sulfate HFA 90 mcg/actuation aerosol inhaler inhale 2 puff by inhalation route every 4 - 6 hours as needed - Active losartan 100 mg tablet take 1 tablet by oral route every day 100 MG - Active Nasonex 50 mcg/actuation [place] spray 2 spray by intranasal route every day in each nostril - Active Flovent HFA 110 mcg/actuation aerosol inhaler inhale 1 puff by inhalation route 2 times every day - Active Procedures Procedure Date Inj Decadron 1mg / Dexamethasone Na Phos bermudez Ther Prophy Or Diagnostic Inj 9 Airway Inhalation Treatment Duoneb Offic/outpt E&m New Low-mod 20 19 Airway Inhalation Treatment Inj Decadron 1mg / Dexamethasone Na Phos bermudez Ther Prophy Or Diagnostic Inj 9 Duoneb Offic/outpt E&m New Low-mod 20 19 Advance Directives Directive Yes / No Effective Date File Name No Information Encounters Encounter Description Practice Location Reason(s) For Visit Diagnoses Date Provider Offic/outpt E&m New Low-mod 20 [facility], [address], [place], [place], [id number], [place] tel:[phone] [facility] asthma (chief complaint) Mild intermittent asthma with acute exacerbation No Information Family History Family Member Type Diagnosis Age At Onset No Information Payers Payer name Insurance type Covered constitution party ID Neal manning(s) [facility] [id number] Social History Type Description Quantity Date Captured Comments Alcohol Use Details No Caffeine Use Details Unknown Tobacco Use Status Current non-smoker 19 Smoking Status Never smoker Non-Smoking Tobacco Use Details : No Details Available : No Details Available Sex Female Sexual Orientation Straight or heterosexual Gender Identity Female Vital Signs Date / Time: Height Weight BMI Pulse Rate Blood Pressure Temperature Respiratory Rate Body Surface Area Head Circumference Head Circ. Percentile Wt./Dany. Percentile BMI percentile Pulse Ox Inhaled Ox 10:46 AM 66.00 in 118.841 kg (262.00 lbs) 42.2 9 kg/m eter (2) 64 /min 154/93 mm[Hg] 97.90 F 22 /min 2.35 meter(2) 95 % 21 % Chief Complaint And Reason For Visit From encounter dated '02/03/2019 10:45'. asthma (chief complaint). Description: The initial visit date was 02/03/2019. Associated symptoms include awakening with cough, awakening with dyspnea, awakening with wheeze, dyspnea with intense exercise, dyspnea with moderate exercise, excessive sputum, mucus plug production, productive cough andwheezing. Pertinent negatives include dry cough, dyspnea at rest, hemoptysis, hoarseness, irregularheartbeat/palpitations, oral thrush, pleuritic pain, post nasal drainage, reflux, seasonal rhinitissymptoms, sinusitis, stridor and tremor after inhaler use. Additional information: 3 days ago seen at ED for dehydration. since then doing well but woke up this morning with dyspnea, cough, wheezing.hx asthma though very well controlled. using albuterol. also coughing yellow mucous up. pt doesn't feel sick. SOB w/ exertion. pt doesn't smoke. uses flovent. took 40 mg pred. this morning.. Plan Of Treatment Date Type Action Status Goal SBIRT. Due on du e Goal Td vaccine. Due on 19 due Goal FIT Occult Blood, Fecal, IA. Due on due Goal Tdap. Due on due Goal Flu-Quad 3 yrs and older. Du e on due Goal Zoster vaccine. Due on due Goal Depression Screening. Due on due Goal Pap/HPV testing. Due on due Goal Colonoscopy. Due on due Goal Mammogram. Due on 9 due Goal Lipid panel. Due on 019 due Goal Health Promotion Plan. Due o n due History Of Present Illness Encounter Date Complaint History Of Prese nt Illness asthma The initial visi t date was 02/03/2019. Associated symptoms include awakening with cough, awakening with dyspnea, awakening with wheeze, dyspnea with intense exercise, dyspnea with moderate exercise, excessive sputum, mucus plug production, productive cough and wheezing. Pertinent negatives include dry cough, dyspnea at rest, hemoptysis, hoarseness, irregular heartbeat/palpitations, oral thrush, pleuritic pain, post nasal drainage, reflux, seasonal rhinitis symptoms, sinusitis, stridor and tremor after inhaler use. Additional information: 3 days ago seen at ED for dehydration. since then doing well but woke up this morning with dyspnea, cough, wheezing. hx asthma though very well controlled. using albuterol. also coughing yellow mucous up. pt doesn't feel sick. SOB w/ exertion. pt doesn't smoke. uses flovent. took 40 mg pred. this morning.. Instructions Date Instruction Additional Infor mation No Information Assessments Type Assessment Date assessment Mild intermittent asthma with ac [place] exacerbation Mental Status Date Cognitive Assessment Orientation - [place] ed to time, place, person, situation.
--- OUTSIDE RECORDS SUMMARY | 2025-03-19 15:53 | XMS_ITS | Encounter Summary ---
Author Organization [facility] Address [address] [facility] [place] [address] Care Team Providers Care Feed Blender Name Role Phone Tracy Rodas MD Primary Care Provider [phone] Chinedu Villalobos MD Unavailable [phone] Encounter Details Date Type Department Care Team (Late st Contact Info) Description 06/15/2015 Therapy Visit [facility] Orthopedics [address] [address] [place] [address] [address] Social History Tobacco Use Types [...] st Contact Info) Description 04/15/2025 1:30 PM UTILITY WORKER FORGE Office Visit [facility] - Allergy [address] [place] [address], [place] [address] Christiano Grey MD [address] [place] [address] DIV OF ALLERGY/[place] [address] documented as of this encounter Visit Diagnoses Not on filedocumented in this encounter Care Teams Feed Blender Relationship Specialty Start Date End Date Tracy Rodas MD PCP - General Internal Medicine 04/07/13 [place] [address] [facility] [address] [place] [address] Orthopedic Surgery 04/07/13 documented as of this encounter
--- OUTSIDE RECORDS SUMMARY | 2025-03-19 15:53 | XMS_ITS | Encounter Summary ---
Author Organization [facility] Address [address] [place] [address] Care Team Providers Care Information Systems Supervisor Name Role Phone Tracy Rodas MD Primary Care Provider [phone] Chinedu Villalobos MD Unavailable [phone] Encounter Details Date Type Department Care Team (Late st Contact Info) Description 04/03/[address] [facility] Orthopedics [address] [address] [place] [address] [address] Social History Tobacco Use Types [...] st Contact Info) Description 04/15/2025 1:30 PM PROVIDER RELATIONS CONSULTANT Office Visit [facility] - Allergy [address] [place] [address], [place] [address] Christiano Grey MD [address] [place] [address] DIV [place] ALLERGY/[place] [address] documented as of this encounter Visit Diagnoses Not on filedocumented in this encounter Care Teams Information Systems Supervisor Relationship Specialty Start Date End Date Tracy Rodas MD PCP - General Internal Medicine 04/07/13 [place] [address] [facility] [address] [place] [address] Orthopedic Surgery 04/07/13 documented as of this encounter
--- OUTSIDE RECORDS SUMMARY | 2025-03-19 15:53 | XMS_ITS | Encounter Summary ---
Author Organization [facility] Address [address] [facility] [place] [address] Care Team Providers Care Assembly Supervisor Name Role Phone Tracy Rodas MD Primary Care Provider [phone] Chinedu Villalobos MD Unavailable [phone] Encounter Details Date Type Department Care Team (Late st Contact Info) Description 07/22/2020 Telephone [facility] [address] [place] [address] Livan Eckert MD [address] [facility] [address] [place] [address] Social History Tobacco Use Types [...] going to be. Patient Call Back number: [phone] RIKE HAMMER OPERATOR documented in this encounter Plan of Treatment Upcoming Encounters Date Type Department Care Team (Late st Contact Info) Description 04/15/2025 1:30 PM RESTRIKE HAMMER OPERATOR Office Visit [facility] - Allergy [address] [place] [address], [place] [address] Christiano Grey MD [address] [place] [address] OF ALLERGY/[place] [address] documented as of this encounter Visit Diagnoses Not on filedocumented in this encounter Care Teams Assembly Supervisor Relationship Specialty Start Date End Date Tracy Rodas MD PCP - General Internal Medicine 04/07/13 [place] [address] [place] [address] Orthopedic Surgery 04/07/13 documented as of this encounter
--- OUTSIDE RECORDS SUMMARY | 2025-03-19 15:53 | XMS_ITS | Encounter Summary ---
Author Organization [facility] Address [address] [facility] [place] [address] Care Team Providers Care Senior Health Consultant Name Role Phone Tracy Rodas MD Primary Care Provider [phone] Chinedu Villalobos MD Unavailable [phone] Encounter Details Date Type Department Care Team (Late st Contact Info) Description 12/08/2024 Lab Requisition [facility] - DermPath Lab [address] [facility], [place] [address] Victoria Rendon DO [address] [facility] [address] [place] [address] Social History Tobacco Use Types Packs/Day Years [...] st Contact Info) Description 04/15/2025 1:30 PM FINAL INSPECTOR MOTORCYLES Office Visit [facility] - Allergy [address] [place] [address], [facility] [place] [address] Christiano Grey MD [address] [place] [address] OF ALLERGY/[place] [address] documented as of this encounter Procedures Procedure Name Priority Date/Time Associated Diagnosis Comments DERMATOPATHOLOGY Routine 12/08/2024 3:05 PM CDT documented in this encounter Results * DERMATOPATHOLOGY (12/08/2024 3:05 PM CDT) Case Report Dermatopathology Report Case: [id number] Authorizing Provider: Victoria Rendon DO Collected: 12/08/2024 03:05 PM Ordering Location: [facility] - Received: 12/09/2024 12:25 PM [...] characteristic determined by the Dermatopathology Laboratory at [facility], directed by Dr. Mario Alberto Elmore. These tests need not be, and therefore are not, approved by the [place] Food and Drug Administration. The tests are used for clinical purposes. Billing Codes Specimen Charges Stain Charges 06468 1 4:45 PM CDT DERMATOPATHOLOGY LABORATORY Embedded Images 4:45 PM CDT DERMATOPATHOLOGY LABORATORY Pathology/Cytolo gy TISSUE SPECIMEN FROM SKIN / Unknown 12/08/2024 3:05 PM CDT 12/09/2024 12:25 PM CDT us Victoria Rendon DO LAB - PATHOLOGY/CYTOLOGY ORDERABLES Final Result DERMATOPATHOLOGY LABORATORY [facility] - Department of Dermatology [facility] Medicine [address] [place] [address], [address] Floor [address] [phone] documented in this encounter Visit Diagnoses Not on filedocumented in this encounter Care Teams Senior Health Consultant Relationship Specialty Start Date End Date Tracy Rodas MD PCP - General Internal Medicine 04/07/13 [place] [address] [place] [id number] Orthopedic Surgery 04/07/13 documented as of this encounter
--- OUTSIDE RECORDS SUMMARY | 2025-03-19 15:54 | XMS_ITS | Clinical Summary ---
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 Gender Identity Female 09/30/2020 11:24 AM CDT [...] Visit 65+ 2022 Covid-19 Vaccine (4 - 2024-2 6 season) 2025 01/25/2022, 08/06/2020, 07/14/2020 Influenza Vaccine (#1) 2025 , 02/20/2022, 02/14/2021, Additional history exists Pneumococcal vaccine 65+ (3 of 3 - PCV20 or PCV21) 01/27/2025 01/28/2020, 01/20/2020, 02/23/2014 DTaP/Tdap/Td Vaccine (2 - Td or Tdap) 08/22/2028 08/22/2018 Zoster Vaccine Completed 10/23/2018, 08/22/2018 [place] [address] [facility] [place]IC[place] [address] [place] [id number] [employer] SIG [id number] Advance Directives For more information, please contact: [phone] Documents on File Type Date Recorded Patient Utilization Specialist Expl anation ADVANCE DIRECTIVE 09/27/2020 12:00 AM DARREN R OF HEAD TURNING MACHINE OPERATOR FINANCIAL/MEDICAL Care Teams Bowling Floor Manager Relationship Specialty Start Date End Date Tracy Rodas MD [address] [place], [place] [id number] PCP - General Internal Medicine 07/15/20
--- OUTSIDE RECORDS SUMMARY | 2025-03-19 15:54 | XMS_ITS | Clinical Summary ---
Author Organization [facility] Address [address] [place] [address] Care Team Providers Care Commodity Supervisor Name Role Phone Unavailable Primary Care Provider [...] Scan (General) 2022 COVID-19 Vaccine ( - 2024-2 6 season) 2025 Influenza Adult (#1) 2025 RSV Immunization or 60+ Years (1 - 1-dose 75+ series) 2032 Hepatitis A Vaccines Aged Out No long er eligible based on patient's age to complete this topic Meningococcal B Vaccine Aged Out No l onger eligible based on patient's age to complete this topic Meningococcal Vaccine Aged Out No ran lidia eligible based on patient's age to complete this topic RSV Immunizations Under 20 Months Aged Out No longer eligible based on patient's age to complete this topic
--- OUTSIDE RECORDS SUMMARY | 2025-03-19 15:54 | XMS_ITS | Clinical Summary ---
Author Organization [facility] Address [address] [facility] [place] [address] Care Team Providers Care Family Worker Name Role Phone Tracy Rodas MD Primary Care Provider [phone] Chinedu Villalobos MD Unavailable [phone] Source Comments [facility],non-owned Affiliates and Associated Physician Practices is amultiple site organization consisting of ambulatory clinics and hospital sitesin [place], [place], [place] and [place]. This disclosure is being madepursuant to the Care Everywhere program and may not contain all information available regarding this patient. Last updated 18.[facility] Allergies Active Allergy Reactions Criticality [...] week 6 Active vitamin D, ergocalciferol, (DRISDOL) 14108 units capsule Take 1 (one) capsule by [...] sprayIndications: Seasonal allergic rhinitis due to pollen Spring 1 (one) spray into each nostril 2 times daily 51 g 3 5 Active Azelastine HCl 137 MCG/SPRAY SOLNIndications:S easonal allergic rhinitis due to pollen Spring 2 sprays into each nostril 2 times [...] Immunizations Immunization Administration Dates Next Due Covid [employer] primary Monoval ent 5-11yr 0.2ml 02/14/2021 Covid [...] st Contact Info) Description 04/15/2025 1:30 PM SAILOR Office Visit [facility] - Allergy [address] [place] [address], [place] [address] Christiano Grey MD [address] [place] [address] OF ALLERGY/[place] [address] Health Maintenance Due Date Last Done Comments [...] this topic Medical Devices Implanted Type Area Custom Shop Worker Device Identifier Shelf Expiration Date Model / Serial / Lot Graham Bone Marion Hv Implanted:Qty: 1 on 03/15/2015 by Chinedu Villalobos MD at [facility] Right: Knee [employer] 10/18/2016 [id number] / / [id number] Titanium Femoral Implant 67.5mm Right Implanted:Qty: 1 on 03/15/2015 by Chinedu Villalobos MD at [facility] Right: Knee [employer] 10/18/2024 [id number] / / [id number] Butn Pat Arcom Wire Polyeth Xsm 28 X 8 Implanted:Qty: 1 on 03/15/2015 by Chinedu Villalobos MD at [facility] Right: Knee [employer] 01/21/2020 [id number] / / [id number] Stem Fem Maxim I-Beam Prim 40mm Implanted:Qty: 1 on 03/15/2015 by Chinedu Villalobos MD at [facility] Right: Knee [employer] 02/17/2025 [id number] / / [id number] Ty Tibial Prim Intlok 71mm Implanted:Qty: 1 on 03/15/2015 by Chinedu Villalobos MD at [facility] Right: Knee [employer] 10/14/2024 [id number] / / [id number] Brdg Tib Gayatri Stbl Implanted:Qty: 1 on 03/15/2015 by Chinedu Villalobos MD at [facility] Right: Knee [employer] 12/25/2019 [id number] / / [id number] Cmpnt Ptlr 28mm 1 Pg Wire Ascnt Arcm Kn Implanted:Qty: 1 on 05/24/2017 by Chinedu Villalobos MD at [facility] Left: Knee [employer] 04/23/2022 [id number] / / [id number] Metal Alternative Cr Femoral 65mm Implanted:Qty: 1 on 05/24/2017 by Chinedu Villalobos MD at [facility] Left: Knee [employer] 01/22/2027 [id number] / / [id number] Brng [id number] Vngrd Arcm Kn Ant Stab Implanted:Qty: 1 on 05/24/2017 by Chinedu Villalobos MD at [facility] Left: Knee [employer] 04/23/2022 [id number] / / [id number] Cmnt Bone Cblt 40gm Hvisc Strl Implanted:Qty: 1 on 05/24/2017 by Chinedu Villalobos MD at [facility] Left: Knee [employer] 09/21/2018 [id number] / / [id number] Stem Tib 40mm As Mx Kn Prm I Beam Implanted:Qty: 1 on 05/24/2017 by Chinedu Villalobos MD at [facility] Left: Knee [employer] 11/21/2026 [id number] / / [id number] Tray Tib 71mm As Mx Kn Intlk Ti Cr Prm Implanted:Qty: 1 on 05/24/2017 by Chinedu Villalobos MD at [facility] Left: Knee [employer] 03/24/2027 [id number] / / [id number] Procedures Procedure Name Priority Date/Time Associated Diagnosis Comments COMPREHENSIVE METABOLIC PANEL Routine 02/19/2015 11:39 AM CDT Preoperative examination from Last 3 Months or Most Recently Relevant to Health Maintenance Results * (ABNORMAL) COMPREHENSIVE METABOLIC PANEL (02/19/2015 11:39 AM CDT) [facility] Glucose 99 74 - 106 mg/dL 02/19/2015 12:10 PM CDT [facility] Sodium 138 136 - 145 mmol/L 02/19/2015 12:10 PM CDT [facility] Potassium 3.4(L) 3.5 - 5.1 mmol/L 02/19/2015 12:10 PM CDT [facility] Chloride 103 98 - 107 mmol/L 02/19/2015 12:10 PM CDT [facility] CO2 26 22 - 31 mmol/L 02/19/2015 12:10 PM CDT [facility] Calcium 9.5 8.5 - 10.1 mg/dL 02/19/2015 12:10 PM CDT [facility] Anion Gap 9 5 - 20 mmol/L 02/19/2015 12:10 PM CDT [facility] BUN 17 7 - 21 mg/dL 02/19/2015 12:10 PM CDT [facility] Creatinine 1.10 0.50 - 1.30 mg/dL 02/19/2015 12:10 PM CDT [facility] Alkaline Phosphatase 80 38 - 126 U/L 02/19/2015 12:10 PM CDT [facility] ALT 33 12 - 78 U/L 02/19/2015 12:10 PM CDT [facility] AST 17 5 - 40 U/L 02/19/2015 12:10 PM CDT [facility] Protein Total 7.5 6.4 - 8.2 gm/dL 02/19/2015 12:10 PM CDT [facility] Albumin 4.0 3.4 - 5.0 gm/dL 02/19/2015 12:10 PM CDT [facility] Bilirubin Total 0.6 0.2 - 1.0 mg/dL 02/19/2015 12:10 PM CDT [facility] eGFR by MDRD 51(L) >60 mL/min/1.7 3m2 02/19/2015 12:10 PM CDT [facility] eGFR by MDRD >60 >60 mL/min/1.7 3m2 02/19/2015 12:10 PM CDT [facility] Blood BLOOD SPECIMEN / Unknown 02/19/2015 11:39 AM CDT 02/19/2015 11:48 AM CDT us Chinedu Villalobos MD LAB - CHEMISTRY ORDERABLES Fi nal Result [facility] [address] [place] [address] from Last 3 Months or Most Recently Relevant to Health Maintenance [place] [address] [address] [place] [address] Advance Directives Documents on File Type Date Recorded Patient Dam Attendant Expl anation Adv Directive/Living Will/POA 03/22/2015 3:11 PM * Full Code (Latest Code Status on File) Date Activated Date Inactivated Comments 05/24/2017 10:30 AM 05/26/2017 4:09 PM * Full Code Date Activated Date Inactivated Comments 03/15/2015 12:14 PM 03/18/2015 1:10 PM Care Teams Family Worker Relationship Specialty Start Date End Date Tracy Rodas MD PCP - General Internal Medicine 04/07/13 [place] [address] [id number] Orthopedic Surgery 04/07/13
[2025-03-19 16:04] LABS: Hematocrit 37.7 % (35.0-42.0); Hemoglobin 12.2 g/dL (11.7-13.8); Mean Corpuscular HGB Conc 32.4 g/dL (32-36); Mean Corpuscular Hemoglobin 26.1 pg (27.0-31.0); Mean Corpuscular Volume 80.7 fL (78.0-102.0); Platelet Count Result 283 K/mm3 (150-420); Red Blood Count 4.67 M/mm3 (4.20-5.40); White Blood Count 8.2 K/mm3 (4.8-10.8)
[2025-03-19 16:29] LABS: Strep Group A RT-PCR NOT DETECTED (Negative)
[2025-03-19 16:40] LABS: Influenza A QL RT-PCR Negative (Negative); Influenza B QL RT-PCR Negative (Negative); RSV RNA, RT-PCR Negative (Negative); SARS-CoV-2 RNA PCR Negative (Negative)
== END 2025-03-19 15:50 | disposition home or self-care (01) ==
LOC: CHSLAB 15:52
PROVIDERS: PCP Internal Medicine; Visit Provider Internal Medicine
DX: J06.9 Acute upper respiratory infection, unspecified (principal)
CPT/HCPCS: 36415; 85027; 87637; 87651

== ENCOUNTER 2025-03-24 14:39 | Outpatient (CLI) | payer MEDICARE, SELFPAY ==
--- NOTE | ~2025-03-24 | XR_ITS ---
Clinical history:Cough. Wheezing EXAM:X-ray chest 2 views TECHNIQUE:Frontal and lateral chest were obtained. Comparisons:02/08/2024 FINDINGS: Heart is not enlarged. No pneumothorax. No pleural effusion. No free air the diaphragm. Small opacities in the lower lungs. IMPRESSION: 1. Small opacities in the mid and lower lungs which represents atelectasis/scarring or infiltrates. If symptoms persist or worsen, consider a short-term follow-up study or additional imaging for further assessment. Reviewed, dictated and finalized at location Q. S OFFICE ADMINISTRATOR IMPRESSION: 1. Small opacities in the mid and lower lungs which represents atelectasis/scar ring or infiltrates. If symptoms persist or worsen, consider a short-term follow-up study or additio nal imaging for further assessment.
[2025-03-24 15:14] LABS: Hematocrit 39.1 % (35.0-42.0); Hemoglobin 12.7 g/dL (11.7-13.8); Mean Corpuscular HGB Conc 32.5 g/dL (32-36); Mean Corpuscular Hemoglobin 26.1 pg (27.0-31.0); Mean Corpuscular Volume 80.5 fL (78.0-102.0); Platelet Count Result 323 K/mm3 (150-420); Red Blood Count 4.86 M/mm3 (4.20-5.40); White Blood Count 8.7 K/mm3 (4.8-10.8)
[2025-03-24 15:40] LABS: Strep Group A RT-PCR NOT DETECTED (Negative)
[2025-03-24 15:47] LABS: Alanine Aminotransferase 27 U/L (6-35); Albumin Level 4.5 g/dL (3.5-5.1); Alkaline Phosphatase 82 U/L (38-126); Anion Gap 12 mmol/L (4-12); Aspartate Amino Transferase 28 U/L (14-36); Bilirubin,Total 1.1 mg/dL (0.2-1.3); Blood Urea Nitrogen 20 mg/dL (7-17); Calcium 9.2 mg/dL (8.4-10.2); Carbon Dioxide 22 mmol/L (22-30); Chloride 104 mmol/L (98-107); Estimated Glomerular Filt Rate 39; Glucose 122 mg/dL (65-110); Osmolality Calculated 289 mOsm/kg (285-295); Potassium 4.0 mmol/L (3.4-5.0); Sodium 138 mmol/L (137-145); Total Protein 7.2 g/dL (6.3-8.2)
[2025-03-24 15:51] LABS: Influenza A QL RT-PCR Negative (Negative); Influenza B QL RT-PCR Negative (Negative); RSV RNA, RT-PCR Negative (Negative); SARS-CoV-2 RNA PCR Negative (Negative)
--- OUTSIDE RECORDS SUMMARY | 2025-03-24 16:24 | XMS_ITS | Encounter Summary ---
Author Organization [facility] Address [address] [facility] [place] [address] Care Team Providers Care Insurance Risk Surveyor Name Role Phone Tracy Rodas MD Primary Care Provider [phone] Chinedu Villalobos MD Unavailable Encounter Details Date Type Department Care Team (Late st Contact Info) Description 06/15/2015 Therapy Visit [facility] Orthopedics [address] [address] [place] [address] [address] Social History Tobacco Use Types [...] st Contact Info) Description 04/15/2025 1:30 PM CERTIFIED CREDIT COUNSELOR Office Visit [facility] - Allergy [address] [place] [address], [place] [address] Christiano Grey MD [address] [place] [address] DIV OF ALLERGY/[place] [address] documented as of this encounter Visit Diagnoses Not on filedocumented in this encounter Care Teams Insurance Risk Surveyor Relationship Specialty Start Date End Date Tracy Rodas MD PCP - General Internal Medicine 04/07/13 [place] [address] [facility] [address] [place] [address] Orthopedic Surgery 04/07/13 documented as of this encounter
--- OUTSIDE RECORDS SUMMARY | 2025-03-24 16:24 | XMS_ITS | Clinical Summary ---
Author Organization [facility] Address [address] [facility] [place] [address] Care Team Providers Care Peanut Cleaner Name Role Phone Tracy Rodas MD Primary Care Provider [phone] Chinedu Villalobos MD Unavailable [phone] Source Comments [facility],non-owned Affiliates and Associated Physician Practices is amultiple site organization consisting of ambulatory clinics and hospital sitesin [place], [place], [place] and [place]. This disclosure is being madepursuant to the Care Everywhere program and may not contain all information available regarding this patient. Last updated 18.[facility] Allergies Active Allergy Reactions Criticality Noted Date [...] week 6 Active vitamin D, ergocalciferol, (DRISDOL) 10194 units capsule Take 1 (one) capsule by [...] sprayIndications: Seasonal allergic rhinitis due to pollen [place] 1 (one) spray into each nostril 2 times daily 51 g 3 5 Active Azelastine HCl 137 MCG/SPRAY SOLNIndications:S easonal allergic rhinitis due to pollen [place] 2 sprays into each nostril 2 times [...] Immunizations Immunization Administration Dates Next Due Covid [employer] primary Monoval ent 5-11yr 0.2ml 02/14/2021 Covid [...] Contact Info) Description 04/15/2025 1:30 PM MANUFACTURING STOREPERSON Office Visit [facility] - [facility]ergy [address] [place] [address], [place] [address] Christiano Grey MD [address] [place] [address] OF ALLERGY/[place] [address] Health Maintenance Due Date Last Done Comments [...] this topic Medical Devices Implanted Type Area Browning Processor Device Identifier Shelf Expiration Date Model / Serial / Lot Graham Bone Maidens Hv Implanted:Qty: 1 on 03/15/2015 by Chinedu Villalobos MD at [facility] Right: Knee [employer] 10/18/2016 [id number] / / [id number] Titanium Femoral Implant 67.5mm Right Implanted:Qty: 1 on 03/15/2015 by Chinedu Villalobos MD at [facility] Right: Knee [employer] 10/18/2024 [id number] / / [id number] Butn Pat [employer]com Wire Polyeth Xsm 28 X 8 Implanted:Qty: 1 on 03/15/2015 by Chinedu Villalobos MD at [facility] Right: Knee [employer] 01/21/2020 [id number] / / [id number] Stem Fem Maxim I-Beam Prim 40mm Implanted:Qty: 1 on 03/15/2015 by Chinedu Villalobos MD at [facility] Right: Knee [employer] 02/17/2025 [id number] / / [id number] Ty Tibial Prim Intlok 71mm Implanted:Qty: 1 on 03/15/2015 by Chinedu Villalobos MD at [facility] Right: Knee [employer] 10/14/2024 [id number] / / [id number] Brdg Tib Gayatri Stbl Implanted:Qty: 1 on 03/15/2015 by Chinedu Villalobos MD at [facility] Right: Knee [employer] 12/25/2019 [id number] / / [id number] Cmpnt Ptlr 28mm 1 Pg Wire Ascnt Arcm Kn Implanted:Qty: 1 on 05/24/2017 by Chinedu Villalobos MD at [facility] Left: Knee [employer] 04/23/2022 [id number] / / [id number] Metal Alternative Cr Femoral 65mm Implanted:Qty: 1 on 05/24/2017 by Chinedu Villalobos MD at [facility] Left: Knee [employer] 01/22/2027 [id number] / / [id number] Brng [id number] Vngrd Arcm Kn Ant Stab Implanted:Qty: 1 on 05/24/2017 by Chinedu Villalobos MD at [facility] Left: Knee [employer] 04/23/2022 [id number] / / [id number] Cmnt Bone Cblt 40gm Hvisc Strl Implanted:Qty: 1 on 05/24/2017 by Chinedu Villalobos MD at [facility] Left: Knee [employer] 09/21/2018 600-15-000 / / [id number] Stem Tib 40mm As Mx Kn Prm I Beam Implanted:Qty: 1 on 05/24/2017 by Chinedu Villalobos MD at [facility] Left: Knee [employer] 11/21/2026 [id number] / / [id number] Tray Tib 71mm As Mx Kn Intlk Ti Cr Prm Implanted:Qty: 1 on 05/24/2017 by Chinedu Villalobos MD at [facility] Left: Knee [employer] 03/24/2027 [id number] / / [id number] Procedures Procedure Name Priority Date/Time Associated Diagnosis Comments COMPREHENSIVE METABOLIC PANEL Routine 02/19/2015 11:39 AM CDT Preoperative examination from Last 3 Months or Most Recently Relevant to Health Maintenance Results * (ABNORMAL) COMPREHENSIVE METABOLIC PANEL (02/19/2015 11:39 AM CDT) [facility] Glucose 99 74 - 106 mg/dL 02/19/2015 12:10 PM CDT [facility] Sodium 138 136 - 145 mmol/L 02/19/2015 12:10 PM CDT [facility] Potassium 3.4(L) 3.5 - 5.1 mmol/L 02/19/2015 12:10 PM CDT [facility] Chloride 103 98 - 107 mmol/L 02/19/2015 12:10 PM CDT [facility] CO2 26 22 - 31 mmol/L 02/19/2015 12:10 PM CDT [facility] Calcium 9.5 8.5 - 10.1 mg/dL 02/19/2015 12:10 PM CDT [facility] Anion Gap 9 5 - 20 mmol/L 02/19/2015 12:10 PM CDT [facility] BUN 17 7 - 21 mg/dL 02/19/2015 12:10 PM CDT [facility] Creatinine 1.10 0.50 - 1.30 mg/dL 02/19/2015 12:10 PM CDT [facility] Alkaline Phosphatase 80 38 - 126 U/L 02/19/2015 12:10 PM CDT [facility] ALT 33 12 - 78 U/L 02/19/2015 12:10 PM CDT [facility] AST 17 5 - 40 U/L 02/19/2015 12:10 PM CDT [facility] Protein Total 7.5 6.4 - 8.2 gm/dL 02/19/2015 12:10 PM CDT [facility] Albumin 4.0 3.4 - 5.0 gm/dL 02/19/2015 12:10 PM CDT [facility] Bilirubin Total 0.6 0.2 - 1.0 mg/dL 02/19/2015 12:10 PM CDT [facility] eGFR by MDRD 51(L) >60 mL/min/1.7 3m2 02/19/2015 12:10 PM CDT [facility] eGFR by MDRD >60 >60 mL/min/1.7 3m2 02/19/2015 12:10 PM CDT [facility] Blood BLOOD SPECIMEN / Unknown 02/19/2015 11:39 AM CDT 02/19/2015 11:48 AM CDT us Chinedu Villalobos MD LAB - CHEMISTRY ORDERABLES Fi nal Result [facility] [address] [place] [address] from Last 3 Months or Most Recently Relevant to Health Maintenance [place] [address] [address] MANAGED [place] [address] Advance Directives Documents on File Type Date Recorded Patient Acoustical Carpenter Expl anation Adv Directive/Living Will/POA 03/22/2015 3:11 PM * Full Code (Latest Code Status on File) Date Activated Date Inactivated Comments 05/24/2017 10:30 AM 05/26/2017 4:09 PM * Full Code Date Activated Date Inactivated Comments 03/15/2015 12:14 PM 03/18/2015 1:10 PM Care Teams Peanut Cleaner Relationship Specialty Start Date End Date Tracy Rodas MD PCP - General Internal Medicine 04/07/13 [place] [address] [id number] Orthopedic Surgery 04/07/13
--- OUTSIDE RECORDS SUMMARY | 2025-03-24 16:24 | XMS_ITS | Encounter Summary ---
Author Organization [facility] Address [address] [facility] [place] [address] Care Team Providers Care Waste Water Or Water Plant Operator Name Role Phone Tracy Rodas MD Primary Care Provider [phone] Chinedu Villalobos MD Unavailable Encounter Details Date Type Department Care Team (Late st Contact Info) Description 04/03/2015 Therapy Visit [facility] Orthopedics [address] [address] [place] [address] [address] Social History Tobacco Use Types [...] st Contact Info) Description 04/15/2025 1:30 PM RETAIL WIRELESS SALES REPRESENTATIVE Office Visit [facility] - Allergy [address] [place] [address], [place] [address] Christiano Grey MD [address] [place] [address] DIV OF ALLERGY/[place] [address] documented as of this encounter Visit Diagnoses Not on filedocumented in this encounter Care Teams Waste Water Or Water Plant Operator Relationship Specialty Start Date End Date Tracy Rodas MD PCP - General Internal Medicine 04/07/13 [place] [address] [facility] [address] [place] [address] Orthopedic Surgery 04/07/13 documented as of this encounter
--- OUTSIDE RECORDS SUMMARY | 2025-03-24 16:24 | XMS_ITS | Clinical Summary ---
Author Organization [facility] Address [address] [place] [address] Care Team Providers Care Bread Oven Operator Name Role Phone Unavailable Primary Care [...]
--- OUTSIDE RECORDS SUMMARY | 2025-03-24 16:24 | XMS_ITS | Encounter Summary ---
Author Organization [facility] Address [address] [facility] [place] [address] Care Team Providers Care Fingerprint Classifier Name Role Phone Tracy Rodas MD Primary Care Provider [phone] Chinedu Villalobos MD Unavailable [phone] Encounter Details Date Type Department Care Team (Late st Contact Info) Description 12/08/2024 Lab Requisition [facility] Lab [address] [facility], [place] [address] Victoria Rendon DO [address] [facility] [address] [place] [address] Social History Tobacco Use Types Packs/Day Years [...] st Contact Info) Description 04/15/2025 1:30 PM BLENDING COORDINATOR Office Visit [facility] - Allergy [address] [place] [address], [facility] [place] [address] Christiano Grey MD [address] [place] [address] OF ALLERGY/[place] [address] documented as of this encounter Procedures Procedure Name Priority Date/Time Associated Diagnosis Comments DERMATOPATHOLOGY Routine 12/08/2024 3:05 PM CDT documented in this encounter Results * DERMATOPATHOLOGY (12/08/2024 3:05 PM CDT) Case Report Dermatopathology Report Case: [id number] Authorizing Provider: Victoria Rendon DO Collected: 12/08/2024 03:05 PM Ordering Location: [facility] - Received: 12/09/2024 12:25 [...] characteristic determined by the Dermatopathology Laboratory at [facility], directed by Dr. Mario Alberto Elmore. These tests need not be, and therefore are not, approved by the [place] Food and Drug Administration. The tests are used for clinical purposes. Billing Codes Specimen Charges Stain Charges 50289 1 4:45 PM CDT DERMATOPATHOLOGY LABORATORY Embedded Images 4:45 PM CDT DERMATOPATHOLOGY LABORATORY Pathology/Cytolo gy TISSUE SPECIMEN FROM SKIN / Unknown 12/08/2024 3:05 PM CDT 12/09/2024 12:25 PM CDT us Victoria Rendon DO LAB - PATHOLOGY/CYTOLOGY ORDERABLES Final Result DERMATOPATHOLOGY LABORATORY [facility] - Department of Dermatology [facility] Medicine [address] [place] [address], [address] [phone] documented in this encounter Visit Diagnoses Not on filedocumented in this encounter Care Teams Fingerprint Classifier Relationship Specialty Start Date End Date Tracy Rodas MD PCP - General Internal Medicine 04/07/13 [place] [address] [place] [id number] Orthopedic Surgery 04/07/13 documented as of this encounter
--- OUTSIDE RECORDS SUMMARY | 2025-03-24 16:24 | XMS_ITS | Clinical Summary ---
Author Organization [place] [address] [place] [address] Care Team Providers Care Roll Wrapper Name Role Phone Tracy Rodas MD Primary Care Provider [phone] Allergies Active Allergy Reactions Criticality Noted Date [...] on file Legal Sex Female 12:41 AM MEDICAL RESEARCH TECH Gender Identity Female 09/30/2020 11:24 AM CDT [...] 08/22/2018 Zoster Vaccine Completed 10/23/2018, 08/22/2018 [place] [address] [facility] MEDICARE ADVANTAGE [facility] MEDICARE Address: [address] [address] [place] [address] [employer] [place] [id number] Advance Directives For more information, please contact: [phone] Documents on File Type Date Recorded Patient Sewing Machines Salesperson Expl anation ADVANCE DIRECTIVE 09/27/2020 12:00 AM DARREN R OF MERCHANDISE EXECUTION LEADER FINANCIAL/MEDICAL Care Teams Roll Wrapper Relationship Specialty Start Date End Date Tracy Rodas MD [address] [place] [address] PCP - General Internal Medicine 07/15/20
--- OUTSIDE RECORDS SUMMARY | 2025-03-24 16:24 | XMS_ITS | Encounter Summary ---
Author Organization [facility] Address [address] [facility] [place] [address] Care Team Providers Care Deer Farm Worker Name Role Phone Tracy Rodas MD Primary Care Provider Chinedu Villalobos MD Unavailable [phone] Encounter Details Date Type Department Care Team (Late st Contact Info) Description 07/22/2020 Telephone [facility] [address] [place] [address] Livan Eckert MD [address] [facility] [address] [place] [address] Social History Tobacco Use Types [...] going to be. Patient Call Back number: [phone] ER DOWN documented in this encounter Plan of Treatment Upcoming Encounters Date Type Department Care Team (Late st Contact Info) Description 04/15/2025 1:30 PM CUTTER DOWN Office Visit [facility] - Allergy [address] [place] [address], [place] [address] Christiano Grey MD [address] [place] [address] OF ALLERGY[place] [address] documented as of this encounter Visit Diagnoses Not on filedocumented in this encounter Care Teams Deer Farm Worker Relationship Specialty Start Date End Date Tracy Rodas MD PCP - General Internal Medicine 04/07/13 [place] [address] [place] [address] Orthopedic Surgery 04/07/13 documented as of this encounter
== END 2025-03-24 14:40 | disposition home or self-care (01) ==
LOC: CHSLAB 14:59
PROVIDERS: PCP Internal Medicine; Visit Provider Internal Medicine
DX: J06.9 Acute upper respiratory infection, unspecified (principal); R05.9 Cough, unspecified; R06.2 Wheezing; R91.8 Other nonspecific abnormal finding of lung field
CPT/HCPCS: 36415; 71046; 80053; 85027; 87637; 87651

== ENCOUNTER 2025-04-03 11:30 | Outpatient (CLI) | payer MEDICARE, SELFPAY ==
--- NOTE | ~2025-04-03 | XR_ITS ---
EXAMINATION: XR chest 2V DATE: 04/03/2025 11:41 INDICATION: Follow-up pneumonia TECHNIQUE: frontal and lateral views of the chest were obtained. COMPARISON: Chest radiograph dated 03/24/2025 FINDINGS: The lungs are clear with no focal airspace opacities, pulmonary edema, pleural effusion or pneumothorax. The cardiomediastinal silhouette is normal. Cholecystectomy clips in right upper quadrant. Mild thoracic spondylosis. IMPRESSION: 1. No acute cardiopulmonary disease. Reviewed, dictated and finalized at location A. NSTITCH TUNNEL ELASTIC OPERATOR
== END 2025-04-03 11:31 | disposition home or self-care (01) ==
LOC: CHSIMG 11:32
PROVIDERS: PCP Internal Medicine; Visit Provider Internal Medicine
DX: J18.9 Pneumonia, unspecified organism (principal)
CPT/HCPCS: 71046